=== PATIENT | female | born 1975 | race Caucasian/White ===

== ENCOUNTER → 2017-11-22 08:52 | Outpatient (CLI) | payer OTHER, SELFPAY ==
[2017-11-22 12:22] LABS: Absolute Lymphocyte Count 1.95 X10^3/ul (0.83-4.51); Absolute Neutrophil Count 6.1 X10^3/uL (2.0-7.7); Basophil# 0.02 X10^3/uL; Basophil% 0.2 % (0-1); Eosinophil# 0.18 X10^3/uL; Eosinophils% 2.1 % (0-5); Hematocrit 41.8 % (37-47); Hemoglobin 13.6 g/dl (12.0-15.0); Lymphocyte # 1.95 X10^3/ul (4.0); Lymphocyte % 22.3 % (19-41); Mean Corp Hgb Conc 32.5 g/gl (32-36); Mean Corpuscular Volume 89.1 fL (81-99); Mean Platelet Vol. 10.5 fl (6.2-12.0); Monocyte# 0.46 X10^3/uL; Monocyte% 5.3 % (0-10); Neutrophil # 6.14 X10^3/uL (2.7-7.7); Platelet Count 300 K/mm3 (150-450); Red Blood Count 4.69 M/mm3 (4.2-5.4); White Blood Count 8.8 K/mm3 (4.4-11.0)
[2017-11-22 12:30] LABS: POSITIVE COUNT NO; POSITIVE DIFFERENTIAL NO; POSITIVE MORPHOLOGY NO
[2017-11-22 12:44] LABS: AST(SGOT) 17 U/L (15-37); Alanine Aminotransfer ALT/SGPT 38 U/L (13-56); Albumin, Serum 3.6 g/dL (3.2-5.0); Alkaline Phosphatase 71 U/L (45-117); Anion Gap 9 (5-15); BUN 14 mg/dL (7-18); BUN/Creat Ratio 21.1 RATIO (10-20); Calcium,Total 8.7 mg/dL (8.5-10.1); Chloride 103 mmol/L (98-107); Cholesterol 216 mg/dL (200); Creatinine, Serum 0.66 mg/dL (0.55-1.02); EST Glomerular Filtration Rate 104 mL/min (>60); Est Glom Filt Rate - Afr Amer 125 mL/min (>60); Globulin 3.6 g/dL (2.2-4.2); Glucose 91 mg/dL (74-106); High Density Lipoprotein 59 mg/dL; Potassium 3.9 mmol/L (3.5-5.1); Protein, Total 7.2 g/dL (6.4-8.2); Sodium Level 138 mmol/L (136-145); Triglycerides 305 mg/dL; Very Low Density Lipoprotein 61 mg/dL (5-40)
== END ==
PROVIDERS: Family Provider Family Medicine; PCP Family Medicine; Visit Provider Family Medicine
DX: E78.5 Hyperlipidemia, unspecified (principal); R53.83 Other fatigue
CPT/HCPCS: 36415; 80053; 80061; 85025

== ENCOUNTER → 2019-02-19 09:09 | Outpatient (CLI) | payer BC, SELFPAY ==
[2019-02-19 10:14] LABS: Absolute Lymphocyte Count 1.46 X10^3/ul (0.83-4.51); Absolute Neutrophil Count 4.7 X10^3/uL (2.0-7.7); Basophil# 0.04 X10^3/uL; Basophil% 0.6 % (0-1); Eosinophil# 0.18 X10^3/uL; Eosinophils% 2.6 % (0-5); Hematocrit 42.3 % (37-47); Hemoglobin 13.8 g/dl (12.0-15.0); Lymphocyte # 1.46 X10^3/ul (4.0); Lymphocyte % 21.3 % (19-41); Mean Corp Hgb Conc 32.6 g/gl (32-36); Mean Corpuscular Hgb 28.3 pg (27.0-32.0); Mean Corpuscular Volume 86.7 fL (81-99); Mean Platelet Vol. 10.4 fl (6.2-12.0); Monocyte# 0.42 X10^3/uL; Monocyte% 6.1 % (0-10); Neutrophil # 4.72 X10^3/uL (2.7-7.7); Platelet Count 268 K/mm3 (150-450); RBC Distribution Width CV 12.6 % (11.6-14.6); RBC Distribution Width SD 39.1 fl (35.1-43.9); Red Blood Count 4.88 M/mm3 (4.2-5.4); White Blood Count 6.9 K/mm3 (4.4-11.0)
[2019-02-19 10:24] LABS: POSITIVE COUNT NO; POSITIVE DIFFERENTIAL NO; POSITIVE MORPHOLOGY NO
[2019-02-19 10:45] LABS: ALB/GLOB Ratio 0.9 RATIO (0.9-2.4); AST(SGOT) 18 U/L (15-37); Alanine Aminotransfer ALT/SGPT 29 U/L (13-56); Albumin, Serum 3.4 g/dL (3.2-5.0); Alkaline Phosphatase 73 U/L (45-117); Anion Gap 5 (5-15); BUN 10 mg/dL (7-18); BUN/Creat Ratio 15.2 RATIO (10-20); Calcium,Total 8.5 mg/dL (8.5-10.1); Chloride 106 mmol/L (98-107); Cholesterol 210 mg/dL (200); Creatinine, Serum 0.66 mg/dL (0.55-1.02); EST Glomerular Filtration Rate 104 mL/min (>60); Est Glom Filt Rate - Afr Amer 126 mL/min (>60); Free T3 2.7 pg/mL (2.18-3.98); Globulin 3.8 g/dL (2.2-4.2); Glucose 87 mg/dL (74-106); High Density Lipoprotein 59 mg/dL; Potassium 3.9 mmol/L (3.5-5.1); Protein, Total 7.2 g/dL (6.4-8.2); Sodium Level 140 mmol/L (136-145); Thyroid Stim Hormone (TSH) 1.18 uIU/mL (0.358-3.74); Triglycerides 214 mg/dL; Very Low Density Lipoprotein 43 mg/dL (5-40)
== END ==
PROVIDERS: Family Provider Family Medicine; PCP Family Medicine; Referring Provider Family Medicine; Visit Provider Family Medicine
DX: E78.5 Hyperlipidemia, unspecified (principal); R53.83 Other fatigue; Z51.81 Encounter for therapeutic drug level monitoring
CPT/HCPCS: 36415; 80053; 80061; 84439; 84443; 84481; 85025

== ENCOUNTER → 2019-03-21 10:39 | Outpatient (CLI) | payer BC, SELFPAY ==
--- NOTE | 2019-03-21 10:41 | BI_ITS ---
MAMMOGRAPHY - BILATERAL SCREENING REASON FOR EXAM: Female, 43 years old. Routine annual screening examination. PERTINENT HISTORY: Aunt with breast cancer. TECHNIQUE: Digital bilateral breast karyn (3D mammographic acquisition) in the CC and MLO projections. 2-D mediolateral oblique (MLO) and craniocaudad (CC) views of both breasts were obtained. CAD: Full Field Digital Mammography with Computer Added Detection was performed. COMPARISON: None. Baseline examination. FINDINGS: Breast Composition: There are scattered areas of fibroglandular density. There are no dominant masses or suspicious calcifications. No other significant abnormalities are identified. BI/SCREEN MAMM (CAD) W/KARYN BILAT IMPRESSION: Negative screening mammogram. Yearly followup mammogram recommended. (A) ASSESSMENT CATEGORY: BIRADS Category 1: Negative. A letter regarding these results will be sent to the patient by the facility within 30 days. Approximately 10% of breast cancers are not detected by mammography. A normal mammogram should not delay biopsy of a clinically suspicious abnormality. [id number] Electronically Signed: Zhou Castrejon, at 8:24 EDT , Service support ,
== END ==
PROVIDERS: Family Provider Family Medicine; PCP Family Medicine; Referring Provider Family Medicine; Visit Provider Family Medicine
DX: Z12.31 Encounter for screening mammogram for malignant neoplasm of breast (principal)
CPT/HCPCS: 77063; 77067

== ENCOUNTER → 2019-04-25 12:52 | Outpatient (CLI) | payer BC, SELFPAY ==
[2019-04-25 08:16] VITALS: BMI 31.9
[2019-05-01 09:37] LABS: HPV APTIMA, High Risk Negative (Negative)
== END ==
PROVIDERS: Family Provider Family Medicine; PCP Family Medicine; Referring Provider Nurse Practitioner Women's Health; Visit Provider Nurse Practitioner Women's Health
DX: Z12.4 Encounter for screening for malignant neoplasm of cervix (principal)
CPT/HCPCS: 87624; 88175; G0145

== ENCOUNTER → 2019-11-11 18:16 | Outpatient (CLI) | payer OTHER, SELFPAY ==
[2019-10-29 15:53] VITALS: BMI 31.9
[2019-11-11 08:34] LABS: hCG Titer Quant., Serum < 1 mIU/mL (1-3)
[2019-11-11 08:39] LABS: Estradiol 37.4 pg/mL; Follicle Stimulating Hormone 5.4 mIU/mL; Luteinizing Hormone 4.5 mIU/mL; Thyroid Stim Hormone (TSH) 2.37 uIU/mL (0.358-3.74)
[2019-11-11 09:08] LABS: Progesterone Level 0.57 ng/mL (See Comment)
--- NOTE | 2019-11-11 18:23 | US_ITS ---
STUDY: ULTRASOUND OF THE FEMALE PELVIS - COMPLETE REASON FOR EXAM: Female, 44 years old. History of polycystic ovaries. LMP: November 08, 2019. TECHNIQUE: Transabdominal and Transvaginal TECHNICAL QUALITY: Adequate. COMPARISON: None. FINDINGS: The uterus is retroverted and is in a midline position. The uterus measures 6.7 cm x 4.3 cm x 3.9 cm. Normal uterine cervix. The endometrium measures 11.5 mm in thickness, and is hyperechoic. There is no demonstrated endometrial mass. There is no demonstrated myometrial mass. I.U.D. - The patient does not have an I.U.D. The right ovary is visualized. The right ovary measures 2.9 cm x 2.9 cm x 2.2 cm. There is no right ovarian cyst or ovarian mass. There is no visualized right adnexal mass or complex lesion. There is normal arterial and normal venous vascularity. The left ovary is visualized. The left ovary measures 6.6 cm x 4.1 cm x 3.2 cm. There is a 4.1 cm x 4.8 cm x 2.5 cm cyst within it. Low-level echoes are seen along its dependent portion. Follow-up is recommended. There is no visualized left adnexal mass or complex lesion. There is normal arterial and normal venous vascularity. There is no fluid in the cul-de-sac. The pre void volume of the bladder was 790 ml. Polycystic ovary disease: No. US/Transvaginal Non- IMPRESSION: 4.1 cm x 4.8 cm x 2.5 cm cyst in the left ovary with the low-level echoes along its dependent portion. Follow-up is recommended. Electronically Signed: Zhou Castrejon, at 12:09 EST , Service support ,
--- NOTE | 2019-11-11 18:23 | US_ITS ---
STUDY: ULTRASOUND OF THE FEMALE PELVIS - COMPLETE REASON FOR EXAM: Female, 44 years old. History of polycystic ovaries. LMP: November 08, 2019. TECHNIQUE: Transabdominal and Transvaginal TECHNICAL QUALITY: Adequate. COMPARISON: None. FINDINGS: The uterus is retroverted and is in a midline position. The uterus measures 6.7 cm x 4.3 cm x 3.9 cm. Normal uterine cervix. The endometrium measures 11.5 mm in thickness, and is hyperechoic. There is no demonstrated endometrial mass. There is no demonstrated myometrial mass. I.U.D. - The patient does not have an I.U.D. The right ovary is visualized. The right ovary measures 2.9 cm x 2.9 cm x 2.2 cm. There is no right ovarian cyst or ovarian mass. There is no visualized right adnexal mass or complex lesion. There is normal arterial and normal venous vascularity. The left ovary is visualized. The left ovary measures 6.6 cm x 4.1 cm x 3.2 cm. There is a 4.1 cm x 4.8 cm x 2.5 cm cyst within it. Low-level echoes are seen along its dependent portion. Follow-up is recommended. There is no visualized left adnexal mass or complex lesion. There is normal arterial and normal venous vascularity. There is no fluid in the cul-de-sac. The pre void volume of the bladder was 790 ml. Polycystic ovary disease: No. US/Pelvic (Non ) IMPRESSION: 4.1 cm x 4.8 cm x 2.5 cm cyst in the left ovary with the low-level echoes along its dependent portion. Follow-up is recommended. Electronically Signed: Zhou Castrejon, at 12:09 EST , Service support ,
== END ==
PROVIDERS: PCP Family Medicine; Referring Provider Nurse Practitioner Women's Health; Visit Provider Nurse Practitioner Women's Health
DX: E28.2 Polycystic ovarian syndrome (principal); Z87.42 Personal history of other diseases of the female genital tract
CPT/HCPCS: 36415; 76830; 76856; 82670; 83001; 83002; 84144; 84443; 84702

== ENCOUNTER → 2020-02-06 16:39 | Outpatient (CLI) | payer OTHER, SELFPAY ==
[2020-02-06 13:09] VITALS: BMI 31.9
--- NOTE | 2020-02-06 16:40 | US_ITS ---
STUDY: ULTRASOUND OF THE FEMALE PELVIS - COMPLETE REASON FOR EXAM: Female, 44 years old. F/U LTO CYST LMP: TECHNIQUE: Transabdominal and transvaginal TECHNICAL QUALITY: Adequate. COMPARISON: November 11, 2019. FINDINGS: The uterus is retroverted and is in a midline position. The uterus measures 9 x 5 x 3.6 cm. Normal uterine cervix. The endometrium measures 9 mm in thickness, and is hyperechoic. There is no demonstrated endometrial mass. There is a fibroid measuring 1.3 x 2.6 x 0.5 cm I.U.D. - The patient does not have an I.U.D. The right ovary is visualized. The right ovary measures 3.2 x 2.7 x 2.2 cm. There is no right ovarian cyst or ovarian mass. There is no visualized right adnexal mass or complex lesion. There is normal arterial and normal venous vascularity. The left ovary is visualized. The left ovary measures 5 x 4.3 x 2.6 cm. There is a multi septated cyst measuring 3.9 x 2.2 x 1.9 cm. There is normal arterial and normal venous vascularity. There is mild fluid in the cul-de-sac. The pre void volume of the bladder was 270.86 ml. The cystic portion of the left ovarian lesion appears to be smaller than the prior study however there is increasing septation and internal debris. This may be due to intracystic hemorrhage. Possibility of neoplasm is not entirely excluded. Would recommend follow-up sonogram or possibly MRI for further assessment US/Pelvic (Non ) IMPRESSION: Normal female pelvis. Electronically Signed: Toro Cronin MD at 17:31 EDT , Service support ,
--- NOTE | 2020-02-06 16:40 | US_ITS ---
STUDY: ULTRASOUND OF THE FEMALE PELVIS - COMPLETE REASON FOR EXAM: Female, 44 years old. F/U LTO CYST LMP: TECHNIQUE: Transabdominal and transvaginal TECHNICAL QUALITY: Adequate. COMPARISON: November 11, 2019. FINDINGS: The uterus is retroverted and is in a midline position. The uterus measures 9 x 5 x 3.6 cm. Normal uterine cervix. The endometrium measures 9 mm in thickness, and is hyperechoic. There is no demonstrated endometrial mass. There is a fibroid measuring 1.3 x 2.6 x 0.5 cm I.U.D. - The patient does not have an I.U.D. The right ovary is visualized. The right ovary measures 3.2 x 2.7 x 2.2 cm. There is no right ovarian cyst or ovarian mass. There is no visualized right adnexal mass or complex lesion. There is normal arterial and normal venous vascularity. The left ovary is visualized. The left ovary measures 5 x 4.3 x 2.6 cm. There is a multi septated cyst measuring 3.9 x 2.2 x 1.9 cm. There is normal arterial and normal venous vascularity. There is mild fluid in the cul-de-sac. The pre void volume of the bladder was 270.86 ml. The cystic portion of the left ovarian lesion appears to be smaller than the prior study however there is increasing septation and internal debris. This may be due to intracystic hemorrhage. Possibility of neoplasm is not entirely excluded. Would recommend follow-up sonogram or possibly MRI for further assessment US/Transvaginal Non- IMPRESSION: Normal female pelvis. Electronically Signed: Toro Cronin MD at 17:31 EDT , Service support ,
== END ==
PROVIDERS: PCP Family Medicine; Visit Provider Obstetrics & Gynecology
DX: E28.2 Polycystic ovarian syndrome (principal); Z87.42 Personal history of other diseases of the female genital tract
CPT/HCPCS: 76830; 76856

== ENCOUNTER 2020-02-11 11:26 | Day surgery (SDC) | payer OTHER, SELFPAY ==
[2019-10-29 15:53] VITALS: BMI 31.9
[2020-02-06 13:09] VITALS: BMI 31.9
[2020-02-11] VITALS (9 sets, daily range): BP systolic 129–151; BP diastolic 70–92; PULSE 57–79; RESP 15–18; TEMP 35.9–36.6; O2SAT 95–100; BMI 30.8
--- NOTE | 2020-02-11 | CYST_PTH ---
PATIENT: ALEX PRYOR LOC: [facility] U#:[id number] AGE/SX: 44/F ROOM: RE02/11/[address]: Dr. Echo Pierre MD : 1975 BED: DIS: 02/11/2020 SPEC #: [id number] RECD: 02/11/20 14:51 STATUS: EPIFANIO REDae #: [id number] ROMÁN: 02/11/20 00:[address]: Echo Pierre DEPT: SURGICAL PATHOLOGY RECD BY: Nurys Villeda ENTERED: 02/12/20 09:04 SP TYPE: Cyst OTHR DR: Dr. Mónica Davis DO Tissues: CYST Procedures: Surgery Specimen Level IV HEADER OPERATION: Diagnostic laparoscopy, left ovarian cystectomy PRE-OP DIAGNOSIS: Cyst of left ovary N83.202 TISSUE SUBMITTED: Left ovarian cyst MICROSCOPIC DIAGNOSIS Left ovarian cyst, excision: Fragments of corpus luteal cyst and blood clot. AM:johnnie 02/13/20 COMMENT Case has been reviewed in consultation with Dr. Mckeon who concurs with the above diagnosis. IDC:SJ MICROSCOPIC DESCRIPTION Slides are reviewed. GROSS DESCRIPTION Received in fixative is one container labeled with the patient's name and designated left ovarian cyst. The specimen consists of multiple irregular fragments of light to dark cabello soft tissue that in aggregate measure 2.5 x 2.2 x 0.2 cm. The specimen is totally submitted in one cassette. / AM:johnnie 02/12/20 TC:5 CPT: 56223
--- NOTE | 2020-02-11 10:34 | PCM.HPOB.BLA ---
- Problem List (1) History of infertility Status: Acute Comment: 2 failed IUI (2) Ovarian cyst Status: Acute Comment: per infertility specialist, recommend surgical removal prior to IVF. original US 11/11/19 plan repeat now and surgery 02/11/20 (3) PCOS (polycystic ovarian syndrome) Status: Acute History and Physical Date of Admission: 02/11/20 Intake Vital Signs 10/29/19 Height 5 ft 6 in 10/29/19 Weight: 190 lb 10/29/19 BMI 30.7 10/29/19 BP 138/80 H Intake Visit Reasons: fertility consult Consulting Services Project Manager Required: No Accompanied by: mom Is patient in pain?: No Allergies No Known Allergies Allergy (Verified 10/29/19 14:51) Medications meloxicam 15 mg tablet 15 mg PO DAILY 04/25/19 [History Confirmed 10/29/19] metformin 500 mg/5 mL oral solution 500 mg PO BID 04/25/19 [History Confirmed 10/29/19] omega-3 360 om-beq-dbx-fish oil 1,200 mg capsule,delayed release 2 cap PO BID 04/25/19 [History Confirmed 10/29/19] loratadine 10 mg tablet 10 mg PO DAILY 10/29/19 [History Confirmed 10/29/19] Is last menstrual period known: Yes Last Menstral Period: 10/13/19 Post menopausal: No Patient : No : No PFSH Medical History PCOS (polycystic ovarian syndrome) (Acute) Family History Father Diabetes Mother Cancer uterine Aunt Breast cancer Social History (Updated 10/29/19 @ 15:53 by Lesia Lopez NP-C) number of children: 0 current occupational status: employed current occupation: [employer][1] Smoking Status: Never smoker alcohol intake: never substance use type: does not use diet: low carbohydrate caffeine: Yes (4) Type: coffee, tea seatbelt use: always do you feel safe at home: Yes additional social history: Danielito ESTEVEZ fertility consult: Details: ALEX PRYOR is a 44 year old who presents for infertility discussion. She was seen at [facility] in [place] on Oct 18. Had normal HSG but US indicates simple 5cm left ovarian cyst. She and her are planning IVF with donor egg. Was recommended to have repeat US day 3 of next cycle and if persists consider either OCP for ovarian suppression or Laparoscopy with hysteroscopy and cyst aspiration. She is wanting to confirm this can be done here with Dr. Pierre Infertility labs were done at [facility]-I reviewed results with patient, all normal and scan to chart. Female Reproductive History Last Menstral Period: 10/13/19 Pregancy History 0 Elective abortions Hx Para Spontaneous abortions Hx # Term Pregnancies Ectopic pregnancies Hx # Pregnancies Multiple births # of living children ROS: General: negative Superintendent Logging: see hpi GI: otherwise negative unless documented in hpi all other systems reviewed and negative PE: VSSAF General: alert oriented comfortable HEENT: no thyromegaly, lymphadenopathy CV: RRR Resp: nl inspiratory effort Abdn: soft NTTP ND Ext: noedema Assessment & Plan Problems 1. Cyst of left ovary N83.202 2. History of infertility Z87.42 2 failed IUI Plan Discussed risk of enlarging ovarian cyst, rupture, pain or torsion if proceeds with ovarian stimulating medication and reasoning for removal/control prior to starting infertility therapies. She is to call [facility] on day 3 of cycle for instructions for US and next labs. She will then contact me so those can be ordered here in [place]. If cyst persists or has enlarged further, she would like to proceed with surgical intervention with Dr. Pierre 20 min FTF counseling with patient. After discussing the patient's diagnosis and treatment plan options, patient wishes to proceed with surgical management. I have discussed with the patient the risks, benefits, and alternatives of the procedure which include but are not limited to risks of anesthesia, bleeding, infection, possible damage to bowel, bladder, or surrounding vasculature which could lead to additional surgery to evaluate any complications. Patient agrees to procedure and wishes to proceed. UPDATE- I have seen the patient and performed any clinically relevant updates to the history and physical exam. Echo Pierre MD Coding Level of Care Code Off vis,est,level 3 Diagnoses Cyst of left ovary N83.202 ??Laterality: left History of infertility Z87.42
[2020-02-11 11:57] LABS: Hematocrit 41.9 % (37-47); Hemoglobin 13.9 g/dL (12.0-15.0); Mean Corp Hgb Conc 33.2 g/dL (32-36); Mean Corpuscular Hgb 30.5 pg (27.0-32.0); Mean Corpuscular Volume 92.1 fL (81-99); Mean Platelet Vol. 10.2 fl (6.2-12.0); Platelet Count 291 K/mm3 (150-450); RBC Distribution Width SD 42.6 fl (35.1-43.9); Red Blood Count 4.55 M/mm3 (4.2-5.4); White Blood Count 6.5 K/mm3 (4.4-11.0)
[2020-02-11] MEDS: Lactated Ringers 1,000 ML 125 ML IV (12:05)
[2020-02-11 12:35] LABS: Internal QC Validated? YES +Cl - CLEAR BKGD; Pregnancy, Urine Negative Negative
[2020-02-11 12:45] LABS: Bedside Glucose 70 mg/dL (70-110)
--- NOTE | 2020-02-11 12:46 | PCM.OPRPT ---
Problem List (1) History of infertility Status: Acute Comment: 2 failed IUI (2) Ovarian cyst Status: Acute Comment: per infertility specialist, recommend surgical removal prior to IVF. original US 11/11/19 plan repeat now and surgery 02/11/20 (3) PCOS (polycystic ovarian syndrome) Status: Acute Report of Operation Date of Procedure: 02/11/20 Pre-Operative Diagnosis: complex ovarian cyst, infertility Post-Operative Diagnosis: endometriosis, polycystic ovaries Surgery/Procedure Performed:: diagnostic laparoscopy ovarian cystectomy, ablation of endometriosis Description of Surgical Findings:: Multiple endometriosis lesions in the cul-de-sac and a Masters window in the left uterosacral ligament. Polycystic ovaries bilaterally with a mostly cystic appearance more so on the left. Normal fallopian tubes normal uterus. Small amount of sigmoid colon to left pelvic sidewall adhesions. manager quality compliance: Shalonda Lopez Type of Anesthesia:: General Special Medications: alli Specimen's removed: ovarian cyst Drains: none Estimated Blood Loss (mL): 25 Fluids Replaced: crystalloid Description of Procedure: Patient was taken in the operating room and was placed under general anesthesia was prepped and draped in normal sterile fashion in the dorsal lithotomy position. Bladder was drained of clear urine and SCDs were on preoperatively. Uterus was sounded and a uterine manipulator was placed after dilating. Attention was then paid to the abdominal portion of the procedure and the umbilicus was elevated with towel clamps and injected with Marcaine and after a 5 mm incision was made and the Veress needle was entered into the abdomen confirmed to be intra-abdominal with a low opening pressure of less than 5 mmHg. Abdomen was insufflated with CO2 gas and a 5 mm optical trocar was placed under direct visualization. A left lower quadrant 5 mm port and a RLQ 5 mm port were placed under direct visualization. Uterus was well visualized and the left ovary was noted to be enlarged with a cyst. Using the monopolar scissors an incision was made across the left ovary and clear serous fluid was seen. The cyst was then dissected away from the normal ovary wall and cystectomy was performed without complication. The area was aggressively suctioned and irrigated. Multiple other holes were drilled into the ovary to release the multiple amount of cyst that gave the ovary is polycystic appearance. Also repeated on the right ovary. Alli was applied to the base of the ovary where the area was bleeding. The right ovary was also inspected and noted to be multicystic. The sigmoid colon to left pelvic sidewall adhesions were taken down sharply and with the monopolar scissors. Excellent hemostasis was noted after Alli was applied to all the raw areas and the ovaries. Liver and upper abdomen were visualized notably within normal limits and no other gross abnormalities were seen in the abdomen. All instruments removed from the abdomen and uterine manipulator removed. After gas was desufflated. Port sites were closed with 3-0 Monocryl Steri's and op sites were applied. All instruments removed from the vagina and patient was awoken and taken recovery in stable condition. Grafts/Implants Used: none - Complications none Multi Select Codes - Urinary/Genital Urinary/Genital CPT Codes: 75791 Laproscopic BS/O - ovarian cystectomy, 43506 Laproscopic ablation endometriosis
--- NOTE | 2020-02-11 12:51 | DCINST_ITS ---
Discharge Diet: No Restrictions - Increase fluid intake for the next 48 hours. Discharge Activity: Return to Normal Activity, May Drive - when you are no longer taking narcotic pain medications., May Shower, May Take a Tub Bath - in 7 days Additional Activity Instructions:: Ambulate often the next week after surgery. Nothing in the vagina for 5 days. Call your doctor if your incision/area has: Continuous Slow Oozing, Sudden Increased Bleeding, Increased Pain/ Swelling, Increased Redness, Foul Smelling Discharge Call your doctor if you observe: Fever of 101 or Higher Allergies/Adverse Reactions: Allergies No Known Allergies Allergy (Verified 02/11/20 11:55) Medications to take at Discharge meloxicam 15 mg tablet 15 mg PO DAILY 04/25/19 omega-3 360 ah-dfs-drz-fish oil 1,200 mg capsule,delayed release 3 cap PO DAILY 04/25/19 Fexofenadine HCl [Fiordaliza Allergy] 180 mg PO DAILY 02/10/20 Metformin HCl 1,000 mg PO DAILY 02/10/20 Multivitamin with Minerals [Multiple Vitamin] 1 ea PO DAILY 02/10/20 Naproxen [Naprosyn] 250 - 500 mg PO Q8H PRN PRN #30 tab 02/11/20 Naproxen [Naprosyn] 250 - 500 mg PO Q8H PRN PRN #30 tab 02/11/20 Oxycodone HCl/Acetaminophen [Percocet 5-325] 1 - 2 tablet PO Q6H PRN PRN 7 Days #15 tablet 02/11/20 The following prescriptions were given: Naproxen [Naprosyn] 250 - 500 mg PO Q8H PRN PRN #30 tab PRN Reason: MILD PAIN Naproxen [Naprosyn] 250 - 500 mg PO Q8H PRN PRN #30 tab PRN Reason: MILD PAIN Transmission Status: Pending to [facility] Oxycodone HCl/Acetaminophen [Percocet 5-325] 1 - 2 tablet PO Q6H PRN PRN 7 Days #15 tablet PRN Reason: Pain Transmission Status: Sent to [facility] Orders to be completed after discharge: Type & Screen Time Frame: 02/11/20, Facility: [facility], Location: Laboratory Primary Care Physician: Mónica Davis DO [Primary Care Provider] - Test Results: Test results from this visit will be discussed in further detail at your follow- up appointment, if applicable. Please Follow Up With: Echo Pierre MD - [phone]
[2020-02-11] MEDS: Lubricating Jelly 60 GM Tube 30 GM TOPICAL (13:12)
[2020-02-11] MEDS: Bupivacaine 0.25% 30 ML Vial (13:55)
== END 2020-02-11 16:28 | disposition home or self-care (01) ==
LOC: SDC 11:27 → AC 11:28
PROVIDERS: Anesthesiology; PCP Family Medicine; Referring Provider Obstetrics & Gynecology; Visit Provider Obstetrics & Gynecology
PROC: (CPT 49320; principal; 2020-02-11 12:50)
DX: E28.2 Polycystic ovarian syndrome (principal); N83.12 Corpus luteum cyst of left ovary; Z79.84 Long term (current) use of oral hypoglycemic drugs; Z79.1 Long term (current) use of non-steroidal anti-inflammatories (NSAID)
CPT/HCPCS: 58662; 36415; 81025; 82962; 85027; 86850; 86900; 86901; 88304; 88305; J7120

== ENCOUNTER → 2020-03-19 10:54 | Outpatient (CLI) | payer OTHER, SELFPAY ==
[2020-02-28 09:42] VITALS: BMI 30.8
[2020-03-19 11:21] LABS: Hematocrit 41.6 % (37-47); Hemoglobin 13.6 g/dL (12.0-15.0); Mean Corp Hgb Conc 32.7 g/dL (32-36); Mean Corpuscular Hgb 29.4 pg (27.0-32.0); Mean Corpuscular Volume 89.8 fL (81-99); Platelet Count 297 K/mm3 (150-450); RBC Distribution Width CV 12.5 % (11.6-14.6); RBC Distribution Width SD 41.1 fl (35.1-43.9); Red Blood Count 4.63 M/mm3 (4.2-5.4); White Blood Count 7.5 K/mm3 (4.4-11.0)
[2020-03-19 11:44] LABS: ALB/GLOB Ratio 0.9 RATIO (0.9-2.4); AST(SGOT) 18 U/L (15-37); Alanine Aminotransfer ALT/SGPT 37 U/L (13-56); Albumin, Serum 3.6 g/dL (3.2-5.0); Alkaline Phosphatase 71 U/L (45-117); Anion Gap 7 (5-15); BUN 9 mg/dL (7-18); BUN/Creat Ratio 12.9 RATIO (10-20); Calcium,Total 9.1 mg/dL (8.5-10.1); Chloride 106 mmol/L (98-107); EST Glomerular Filtration Rate 97 mL/min (>60); Est Glom Filt Rate - Afr Amer 117 mL/min (>60); Glucose 94 mg/dL (74-106); Potassium 3.7 mmol/L (3.5-5.1); Protein, Total 7.6 g/dL (6.4-8.2); Sodium Level 140 mmol/L (136-145)
[2020-03-19 12:29] LABS: HIV - WCH Non-Reactive (Nonreactive); Hepatitis B Surface Antigen Non-Reactive (Nonreactive); Hepatitis C Antibody Non-Reactive (Nonreactive); Rubella IgG 28.8 IU/mL
[2020-03-25 21:56] LABS: Rapid Plasmin Reagin (RPR) NONREACTIVE (NONREACTIVE)
== END ==
PROVIDERS: PCP Family Medicine; Referring Provider Obstetrics & Gynecology; Visit Provider Obstetrics & Gynecology
DX: Z87.42 Personal history of other diseases of the female genital tract (principal)
CPT/HCPCS: 80053; 85027; 86592; 86703; 86762; 86803; 86850; 86900; 86901; 87340

== ENCOUNTER → 2020-04-02 08:18 | Outpatient (CLI) | payer OTHER, SELFPAY ==
[2020-03-31 08:22] VITALS: BMI 30.7
--- NOTE | 2020-04-02 08:20 | US_ITS ---
STUDY: SUPERFICIAL ULTRASOUND - RIGHT UPPER BACK REASON FOR EXAM: Female, 44 years old. LUMP- RIGHT BACK TECHNIQUE: A superficial ultrasound was performed with real-time and static wright-scale imaging. COMPARISON: None. FINDINGS: Sonographic evaluation of the palpable abnormality in the right upper back shows 2 separate isoechoic to muscle nodules. The larger measures 4.2 x 4.0 x 2.2 cm, smaller 1.6 x 2.2 x 0.7 cm. There are homogeneity suggests they are likely lipomas. There is no suspicious vascularity or other evidence of acute inflammation. No suspicious subcutaneous fluid collections. US/Ext Non Vasc Limited/Soft Tiss IMPRESSION: Likely subcutaneous lipomas, no suspicious sonographic findings Electronically Signed: Maikel Odom MD at 8:57 EDT , Service support ,
== END ==
PROVIDERS: PCP Family Medicine; Referring Provider Physician Assistant; Visit Provider Physician Assistant
DX: R22.9 Localized swelling, mass and lump, unspecified (principal)
CPT/HCPCS: 76882

== ENCOUNTER → 2020-04-03 08:23 | Outpatient (CLI) | payer OTHER, SELFPAY ==
[2020-04-02 13:00] VITALS: BMI 30.8
[2020-04-03 08:58] LABS: hCG Titer Quant., Serum < 1 mIU/mL (1-3)
[2020-04-03 09:02] LABS: Estradiol 42.7 pg/mL; Follicle Stimulating Hormone 3.5 mIU/mL; Luteinizing Hormone 3.8 mIU/mL; Thyroid Stim Hormone (TSH) 1.56 uIU/mL (0.358-3.74)
[2020-04-03 09:21] LABS: Progesterone Level 0.44 ng/mL (See Comment)
--- NOTE | 2020-04-03 15:53 | US_ITS ---
HISTORY: Infertility. Left ovarian cyst removed 02/11/2020. Endometriosis. Tissue removal. Follow-up. Endovaginal imaging only. 61 images. 2 cine clips. Most recent comparison study is from February 06, 2020 At that time a hematoma versus endometrioma was present adjacent to the left ovary measuring 3.9 x 1.9 x 2.2 cm on the previous study. There are 2 studies one is a transabdominal and one is in endovaginal. The labeled this study is for the transabdominal not be endovaginal. The images provided, however, or for the endovaginal. There is a separate study called pelvic non-OB from today that is transabdominal. Findings: The cine clip demonstrates a hematoma associated with the left ovary. It is feasible this is an endometrioma. I believe a hematoma is more likely. The bladder is not completely decompressed. The uterus measures 8 x 4.2 x 5.7 cm. Myometrium is homogeneous. Endometrium is homogeneous. Endometrial stripes measure 11 mm. Color Doppler imaging demonstrates flow within the myometrium as well as at the edge of the endometrium. The cervix is closed. The right ovary measures 2.6 x 2.9 x 2.8 cm. Color Doppler imaging demonstrates flow to right ovarian parenchyma. The left ovary measures 6.1 x 4.8 x 5.3 cm. With in the left ovary there is the hematoma structure. It measures 5.3 x 4.6 x 4.3 cm. Color Doppler and pulse-wave Doppler imaging demonstrate arterial flow within the left ovarian parenchyma compressed at the margins of the hematoma. US/Pelvic (Non ) IMPRESSION: Increasing size of left ovarian cystic structure with septations that appears to be a hematoma. Increasing size suggests this may be a growing endometrioma rather than a simple hematoma. No ovarian torsion. at 0515 Reported and signed by: Russ Traylor MD Electronically Signed: Russ Traylor MD at 5:14 EDT Tel , Service support ,
--- NOTE | 2020-04-03 15:53 | US_ITS ---
HISTORY: Infertility. Left ovarian cyst removed 02/11/2020. Endometriosis. Tissue removal. Follow-up. Endovaginal imaging only. 61 images. 2 cine clips. Most recent comparison study is from February 06, 2020 At that time a hematoma versus endometrioma was present adjacent to the left ovary measuring 3.9 x 1.9 x 2.2 cm on the previous study. There are 2 studies one is a transabdominal and one is in endovaginal. The labeled this study is for the transabdominal not be endovaginal. The images provided, however, or for the endovaginal. There is a separate study called pelvic non-OB from today that is transabdominal. Findings: The cine clip demonstrates a hematoma associated with the left ovary. It is feasible this is an endometrioma. I believe a hematoma is more likely. The bladder is not completely decompressed. The uterus measures 8 x 4.2 x 5.7 cm. Myometrium is homogeneous. Endometrium is homogeneous. Endometrial stripes measure 11 mm. Color Doppler imaging demonstrates flow within the myometrium as well as at the edge of the endometrium. The cervix is closed. The right ovary measures 2.6 x 2.9 x 2.8 cm. Color Doppler imaging demonstrates flow to right ovarian parenchyma. The left ovary measures 6.1 x 4.8 x 5.3 cm. With in the left ovary there is the hematoma structure. It measures 5.3 x 4.6 x 4.3 cm. Color Doppler and pulse-wave Doppler imaging demonstrate arterial flow within the left ovarian parenchyma compressed at the margins of the hematoma. US/Transvaginal Non- IMPRESSION: Increasing size of left ovarian cystic structure with septations that appears to be a hematoma. Increasing size suggests this may be a growing endometrioma rather than a simple hematoma. No ovarian torsion. at 0515 Reported and signed by: Russ Traylor MD Electronically Signed: Russ Traylor MD at 5:14 EDT Tel , Service support ,
== END ==
PROVIDERS: PCP Family Medicine; Referring Provider Obstetrics & Gynecology; Visit Provider Obstetrics & Gynecology
DX: Z87.42 Personal history of other diseases of the female genital tract (principal)
CPT/HCPCS: 36415; 76830; 76856; 82670; 83001; 83002; 84144; 84443; 84702

== ENCOUNTER → 2020-04-07 16:01 | Outpatient (CLI) | payer OTHER, SELFPAY ==
[2020-04-02 13:00] VITALS: BMI 30.8
--- NOTE | 2020-04-07 16:02 | US_ITS ---
STUDY: ULTRASOUND OF THE FEMALE PELVIS - COMPLETE REASON FOR EXAM: Female, 44 years old. Infertility TECHNIQUE: Transabdominal and Transvaginal TECHNICAL QUALITY: Adequate. COMPARISON: 04/03/2020 FINDINGS: The uterus is anteverted and is in a midline position. The uterus measures 8.2 x 5.6 x 3.5 cm. Normal uterine cervix. The endometrium measures 7 mm in thickness, and is hyperechoic. There is no demonstrated endometrial mass. There is a 7 mm fibroid in the body of the uterus. The right ovary is visualized. The right ovary measures 3.9 x 2.6 x 2.5 cm. There is a physiologic follicle in the right ovary. There is no right ovarian cyst or ovarian mass. There is no visualized right adnexal mass or complex lesion. There is normal arterial and normal venous vascularity. The left ovary is visualized. The left ovary measures 6.0 x 5.0 x 3.4 cm. There is a 5.0 x 4.0 x 2.9 cm complex lesion in the left ovary which likely represents a hemorrhagic cyst. This is decreased in size when compared with the prior exam (previously 5.3 x 4.6 x 4.3 cm). There is no visualized left adnexal mass or complex lesion. There is normal arterial and normal venous vascularity. There is a small amount of free fluid. US/Transvaginal Non- IMPRESSION: Subcentimeter fibroid in the uterus. Otherwise, normal sonographic appearance of the uterus and endometrium. Normal sonographic appearance of the right ovary. 5.0 x 4.0 x 2.9 cm complex cyst in the left ovary which is decreased in size when compared with the prior exam. This is likely hemorrhagic in nature. Small amount of free fluid. Electronically Signed: Yury Lopes, at 17:03 EDT Tel , Service support ,
--- NOTE | 2020-04-07 16:02 | US_ITS ---
STUDY: ULTRASOUND OF THE FEMALE PELVIS - COMPLETE REASON FOR EXAM: Female, 44 years old. Infertility TECHNIQUE: Transabdominal and Transvaginal TECHNICAL QUALITY: Adequate. COMPARISON: 04/03/2020 FINDINGS: The uterus is anteverted and is in a midline position. The uterus measures 8.2 x 5.6 x 3.5 cm. Normal uterine cervix. The endometrium measures 7 mm in thickness, and is hyperechoic. There is no demonstrated endometrial mass. There is a 7 mm fibroid in the body of the uterus. The right ovary is visualized. The right ovary measures 3.9 x 2.6 x 2.5 cm. There is a physiologic follicle in the right ovary. There is no right ovarian cyst or ovarian mass. There is no visualized right adnexal mass or complex lesion. There is normal arterial and normal venous vascularity. The left ovary is visualized. The left ovary measures 6.0 x 5.0 x 3.4 cm. There is a 5.0 x 4.0 x 2.9 cm complex lesion in the left ovary which likely represents a hemorrhagic cyst. This is decreased in size when compared with the prior exam (previously 5.3 x 4.6 x 4.3 cm). There is no visualized left adnexal mass or complex lesion. There is normal arterial and normal venous vascularity. There is a small amount of free fluid. US/Pelvic (Non ) IMPRESSION: Subcentimeter fibroid in the uterus. Otherwise, normal sonographic appearance of the uterus and endometrium. Normal sonographic appearance of the right ovary. 5.0 x 4.0 x 2.9 cm complex cyst in the left ovary which is decreased in size when compared with the prior exam. This is likely hemorrhagic in nature. Small amount of free fluid. Electronically Signed: Yury Lopes, at 17:03 EDT Tel , Service support ,
== END ==
PROVIDERS: PCP Family Medicine; Referring Provider Obstetrics & Gynecology; Visit Provider Obstetrics & Gynecology
DX: E28.2 Polycystic ovarian syndrome (principal); Z87.42 Personal history of other diseases of the female genital tract
CPT/HCPCS: 76830; 76856

== ENCOUNTER → 2020-04-14 08:17 | Outpatient (CLI) | payer OTHER, SELFPAY ==
[2020-04-02 13:00] VITALS: BMI 30.8
[2020-04-14 08:56] LABS: Estradiol 341.3 pg/mL; Luteinizing Hormone 9.3 mIU/mL
[2020-04-14 09:25] LABS: Progesterone Level < 0.21 ng/mL (See Comment)
--- NOTE | 2020-04-14 15:31 | US_ITS ---
STUDY: ULTRASOUND OF THE FEMALE PELVIS - COMPLETE REASON FOR EXAM: Female, 44 years old. Infertility. LMP: April 02, 2020. TECHNIQUE: Transabdominal and Transvaginal TECHNICAL QUALITY: Adequate. COMPARISON: April 07, 2020. FINDINGS: The uterus is retroverted and is tilted to the right side of the pelvis. The uterus measures 8.2 x 5.0 x 5.0 cm. Normal uterine cervix. The endometrium measures 17 mm in thickness, and is heterogeneous (striated). Some 4 mm cyst within the endometrium. There is no demonstrated endometrial mass. There is a 0.9 x 0.8 x 0.6 cm hypoechoic fibroid in the posterior fundal myometrium. I.U.D. - The patient does not have an I.U.D. The right ovary is visualized. The right ovary measures 3.2 x 2.1 x 1.8 cm. There is no right ovarian cyst or ovarian mass. There is no visualized right adnexal mass or complex lesion. There is normal arterial and normal venous vascularity. The left ovary is visualized. The left ovary measures 3.6 x 3.7 x 2.4 cm. There are multiple follicles of the left ovary. There is a hypoechoic 2.2 x 1.7 x 1.2 cm dominant cyst.. There is no visualized left adnexal mass or complex lesion. There is normal arterial and normal venous vascularity. There is minimal fluid in the cul-de-sac. The pre void volume of the bladder was 821 ml. The urinary bladder appears grossly normal. Polycystic ovary disease: No. US/Transvaginal Non- IMPRESSION: 1. Prominent heterogenous endometrium with small endometrial cyst. 2. Posterior fundal fibroid. 3. Normal bilateral ovaries. 4. Mild free fluid, thought to be physiologic. Electronically Signed: Boby Rodriguez DO at 17:01 EDT Tel [phone], Service support ,
--- NOTE | 2020-04-14 15:31 | US_ITS ---
STUDY: ULTRASOUND OF THE FEMALE PELVIS - COMPLETE REASON FOR EXAM: Female, 44 years old. Infertility. LMP: April 02, 2020. TECHNIQUE: Transabdominal and Transvaginal TECHNICAL QUALITY: Adequate. COMPARISON: April 07, 2020. FINDINGS: The uterus is retroverted and is tilted to the right side of the pelvis. The uterus measures 8.2 x 5.0 x 5.0 cm. Normal uterine cervix. The endometrium measures 17 mm in thickness, and is heterogeneous (striated). Some 4 mm cyst within the endometrium. There is no demonstrated endometrial mass. There is a 0.9 x 0.8 x 0.6 cm hypoechoic fibroid in the posterior fundal myometrium. I.U.D. - The patient does not have an I.U.D. The right ovary is visualized. The right ovary measures 3.2 x 2.1 x 1.8 cm. There is no right ovarian cyst or ovarian mass. There is no visualized right adnexal mass or complex lesion. There is normal arterial and normal venous vascularity. The left ovary is visualized. The left ovary measures 3.6 x 3.7 x 2.4 cm. There are multiple follicles of the left ovary. There is a hypoechoic 2.2 x 1.7 x 1.2 cm dominant cyst.. There is no visualized left adnexal mass or complex lesion. There is normal arterial and normal venous vascularity. There is minimal fluid in the cul-de-sac. The pre void volume of the bladder was 821 ml. The urinary bladder appears grossly normal. Polycystic ovary disease: No. US/Pelvic (Non ) IMPRESSION: 1. Prominent heterogenous endometrium with small endometrial cyst. 2. Posterior fundal fibroid. 3. Normal bilateral ovaries. 4. Mild free fluid, thought to be physiologic. Electronically Signed: Boby Rodriguez DO at 17:01 EDT Tel [phone], Service support ,
== END ==
PROVIDERS: PCP Family Medicine; Referring Provider Obstetrics & Gynecology; Visit Provider Obstetrics & Gynecology
DX: E28.2 Polycystic ovarian syndrome (principal); Z87.42 Personal history of other diseases of the female genital tract
CPT/HCPCS: 36415; 76830; 76856; 82670; 83002; 84144

== ENCOUNTER → 2020-04-27 08:07 | Outpatient (CLI) | payer OTHER, SELFPAY ==
[2020-04-02 13:00] VITALS: BMI 30.8
[2020-04-27 09:19] LABS: hCG Titer Quant., Serum < 1 mIU/mL (1-3)
[2020-04-27 09:22] LABS: Progesterone Level 23.31 ng/mL (See Comment)
== END ==
PROVIDERS: Nurse Practitioner Women's Health; PCP Family Medicine; Referring Provider Obstetrics & Gynecology; Visit Provider Obstetrics & Gynecology
DX: Z87.42 Personal history of other diseases of the female genital tract (principal)
CPT/HCPCS: 36415; 82670; 84144; 84702

== ENCOUNTER → 2020-05-04 07:48 | Outpatient (CLI) | payer OTHER, SELFPAY ==
[2020-04-02 13:00] VITALS: BMI 30.8
[2020-05-04 09:05] LABS: Progesterone Level 27.08 ng/mL (See Comment)
[2020-05-04 09:07] LABS: hCG Titer Quant., Serum < 1 mIU/mL (1-3)
== END ==
PROVIDERS: Obstetrics & Gynecology; PCP Family Medicine; Referring Provider Nurse Practitioner Women's Health; Visit Provider Nurse Practitioner Women's Health
DX: Z87.42 Personal history of other diseases of the female genital tract (principal)
CPT/HCPCS: 36415; 84144; 84702

== ENCOUNTER 2020-05-15 09:17 | Day surgery (SDC) | payer OTHER, SELFPAY ==
--- NOTE | 2020-05-07 04:12 | HP_ITS ---
Intake Vital Signs 05/07/20 Height 5 ft 6 in 05/07/20 Weight: 190 lb 4 oz 05/07/20 BMI 30.7 05/07/20 BP 115/75 05/07/20 Blood Pressure Location Rt brachial 05/07/20 Position Sitting 05/07/20 Respiration 18 05/07/20 Pulse 74 05/07/20 Pulse Source Monitor 05/07/20 Temp 98.0 F 05/07/20 Temp Source Temporal 05/07/20 Pulse Oximetry (%) 98 05/07/20 Oxygen Delivery Method room air 05/07/20 BMI 30.8 Intake Visit Reasons: F/U Lipoma Back to discuss options Chief Complaint: f/u lipoma back to discuss surgery Corporate Director Talent Assessment Required: No Accompanied by: Mother Is patient in pain?: No Allergies oxycodone Allergy (Mild, Verified 05/07/20 15:13) rash Medications meloxicam 15 mg tablet 15 mg PO DAILY 04/25/19 [History Confirmed 05/07/20] omega-3 360 ph-kgd-lqx-fish oil 1,200 mg capsule,delayed release 3 cap PO DAILY 04/25/19 [History Confirmed 05/07/20] Metformin HCl 1,000 mg PO DAILY 02/10/20 [History Confirmed 05/07/20] Multivitamin with Minerals [Multiple Vitamin] 1 ea PO DAILY 02/10/20 [History Confirmed 05/07/20] Naproxen [Naprosyn] 250 - 500 mg PO Q8H PRN PRN #30 tab 02/11/20 [Rx Confirmed 05/07/20] PFSH Medical History Endometriosis determined by laparoscopy (Acute ~02/11/20) Lipoma of back (Acute) Infertility (Acute) PCOS (polycystic ovarian syndrome) (Acute) Surgical History H/O ovarian cystectomy (Acute ~02/11/20) H/O laparoscopy (Acute ~02/11/20) Family History Father Diabetes Mother Cancer uterine Aunt Breast cancer Grandmother Asthma Social History (Updated 05/07/20 @ 16:[address] Kamlesh Lang MD) number of children: 0 current occupational status: employed current occupation: [employer] Smoking Status: Never smoker alcohol intake: never substance use type: does not use diet: low carbohydrate caffeine: Yes (4) Type: coffee, tea seatbelt use: always do you feel safe at home: Yes additional social history: [employer] HPI HPI Surgical H&P: Yes HPI: ALEX PRYOR, is a 44 F who presents to the office today for a lump in her right lateral back area very close to her axillary area. She has had this mass for more than 15 years it is gradually getting larger started to become slightly more uncomfortable when she is lying down. Originally was seen by her primary care doctor many years ago who felt that it was just a lipomatous mass. Currently the patient is being evaluated for IVF. She however is started to develop more uncomfortable symptoms with this lump in her right axillary area and would like to have this removed ROGELIO. ROS General General: Yes weight change; no appetite, fatigue, colon cancer, breast cancer or weakness HEENT HEENT: No difficulty swallowing, eye injury, eye surgery, swollen glands or hoarseness Endo Endocrine: No thyroid disease, diabetes mellitus, thyroid cancer, Hair loss, heat intolerance or cold intolerance Musc Musculoskeletal: Yes back problems and arthritis; no rheumatoid arthritis, gout or joint pain Cardio Cardiovascular: No murmur, pacemaker, heart disease, atrial fibrillation, high blood pressure, heart attack, heart stent, palpitations, shortness of breat with exertion or chest pain Psych Psychiatric: No depression, anxiety or hearing voices Resp Respiratory: No shortness of breath, No sleep apnea, No cough, No COPD, No asthma, No emphysema, No wheezing Gastro Gastrointestinal: No abdominal pain, No nausea or vomiting, No diarrhea, No constipation, No blood in stool, No acid reflux, No hemorrhoids, No ulcers, No gallbladder problem, No black,tarry stools Luis Hematologic: No blood thinners, No blood disorders, No bleeding, No anemia, No blood clots Neuro Neurologic: No weakness Exam Const General: no acute distress, well developed, well hydrated Orientation: oriented to person, oriented to place, oriented to time [facility] Head: normocephalic, atraumatic Ears: external ears normal Mouth: moist mucous membranes Eyes Sclera: sclerae normal Pupils: normal by confrontation Neck Neck: no lymphadenopathy noted Neck mass: No Thyroid: thyroid normal, symmetrical Chest Chest palpation & inspection: normal inspection of the chest Resp Effort & Inspection: normal respiratory effort Auscultation: clear to auscultation bilaterally Percussion: percussion normal Cardio Rate: regular rate Rhythm: regular rhythm Heart Sounds: no murmurs GI Palpation: soft, no hepatosplenomegaly, no masses, nontender Rectal Exam: other Other: Rectal exam deferred. Skin Other: Along the right lateral edge of her latissimus dorsi muscle very close to the axillary area is the least a 10 cm soft spongy mass most likely consistent with a lipoma. It has no firm features it is not tender there is no signs of any axillary adenopathy. Extrem General: normal to inspection, no clubbing, cyanosis or edema Assessment & Plan Problems 1. Mass of subcutaneous tissue of back R22.2 Plan My plan is to remove this lesion in the OR under local MAC.We discussed the risks and benefits of the planned procedure. I have informed the patient that complications can occur including failure to complete the procedure. The patient had the opportunity to ask questions concerning the planned procedure. My staff has also explained the procedure to the patient in understandable terms and has given the patient printed material concerning the procedure. The patient freely consents to the procedure. Coding Level of Care Code Off vis,est,level 3 Diagnoses Mass of subcutaneous tissue of back R22.2 COVID (Procedure Consent) Procedure Criteria Procedure Criteria: Yes Elective The surgeon/proceduralist and patient have discussed in detail the risk of exposure to and/or potential harm posed by the COVID-19 virus with having a surgery/procedure at this time versus the risk of? delaying the surgery/procedure. It is not possible to know either the risk of delaying the surgery or procedure or chance of getting an infection with perfect accuracy, but a joint decision was made between the patient and the surgeon/proceduralist ?to proceed at this time with the scheduled surgery/procedure as indicated on the consent form. 05/07/20 [id number] <Electronically signed by Kamlesh mondragon MD> Date _ Kamlesh Lang MD I have re-examined the patient. There are no clinical changes since date of exam.
[2020-05-07 15:18] VITALS: BMI 30.7
[2020-05-10 12:05] LABS: Probe Check PASS; Specimen Processing Control PASS
[2020-05-15] VITALS (9 sets, daily range): BP systolic 128–145; BP diastolic 69–98; PULSE 58–81; RESP 15–16; TEMP 36.3–37.3; O2SAT 97–100; BMI 31.4
[2020-05-15 09:47] LABS: Internal QC Validated? YES +Cl - CLEAR BKGD; Pregnancy, Urine Negative Negative
[2020-05-15] MEDS: Lactated Ringers 1,000 ML 100 ML IV (10:00)
[2020-05-15 10:11] LABS: Bedside Glucose 82 mg/dL (70-110)
--- NOTE | 2020-05-15 11:30 | MASS_PTH ---
PATIENT: ALEX PRYOR [place] [facility] [place][id number] AGE/SX: 44/F ROOM: RE05/15/[address]: Dr. Kamlesh Lang MD : [id number] BED: DIS: 05/15/2020 SPEC #: [id number] RECD: 05/15/20 13:39 STATUS: EPIFANIO REDae #: [id number] ROMÁN: 05/15/20 11:[address]: Kamlesh Lang DEPT: SURGICAL PATHOLOGY RECD BY: Solomon Bright ENTERED: 05/18/20 07:22 SP TYPE: Mass OTHR DR: Dr. Mónica Davis, DO Tissues: Back, NOS Procedures: Surgery Specimen Level IV HEADER OPERATION: Back subcutaneous mass excision PRE-OP DIAGNOSIS: Mass of subcutaneous tissue of back R22.2 TISSUE SUBMITTED: Subcutaneous mass of back MICROSCOPIC DIAGNOSIS Mass of subcutaneous tissue back, excision: Mature adipose tissue consistent with lipoma. SJ:johnnie 05/19/20 MICROSCOPIC DESCRIPTION Slides are reviewed. GROSS DESCRIPTION Received in fixative is one container labeled with the patient's name and designated subcutaneous mass of back. The specimen consists of multiple variable sized pieces of yellow adipose tissue that in aggregate measure 13 x 11 x 1 cm. The largest piece appears to be disrupted. Sections reveal yellow adipose cut surfaces without area of hemorrhagic, necrosis or cystic degeneration. Dry Paste Supervisor sections are submitted in three cassettes. / SJ:johnnie 05/18/20 TC:1 CPT: 03222
[2020-05-15] MEDS: Cefazolin 2 GM in 0.9% Normal Saline 100 ML IV (11:33)
[2020-05-15] MEDS: Bupivacaine Mpf 0.5% 30 ML VIAL (12:14)
--- NOTE | 2020-05-15 12:34 | PCM.OPRPT ---
Problem List (1) Lesion of subcutaneous tissue Status: Acute Report of Operation Date of Procedure: 05/15/20 Pre-Operative Diagnosis: 10 cm subcutaneous lesion to right flank Post-Operative Diagnosis: Same Surgery/Procedure Performed:: Incision of a 10 cm subcutaneous lesion to right flank Type of Anesthesia:: General Anesthesiologist: Vasu Schultz Specimen's removed: 10 cm fatty lesion Estimated Blood Loss (mL): < 25 cc Description of Procedure: Was brought into the operating room. Placed in the supine position under excellent LMA anesthesia the patient was placed on the left lateral decubitus position with her arm on an arm board. The right flank area near the axilla was sterilely prepped and draped in usual fashion. 1% lidocaine plain was injected. A 10 and half centimeter incision was made. Dissection was carried down. The lobulated fatty lesion was removed in its entirety and sent to pathology for permanent sectioning. Local was injected electrocautery was used for good pneumostasis I irrigated out the wound I saw no lobulated piece of fat left behind. The wound was then brought together with subcu of 2-0 Vicryls deep dermals of 3-0 Vicryl was then a running 4-0 Monocryl. Dermabond was applied sterile dressings were applied and the patient tolerated the procedure well. - Admit VTE Documentation VTE Present on Admission: No VTE Mechan Device Prophylaxis: SCD's VTE Pharm Prophylaxis ordered?: No Reason prophylaxis not ordered:: Treatment Not Indicated [id number]: [id number] Exc back les sc 3 cm/>
--- NOTE | 2020-05-15 12:38 | DCINST_ITS ---
Discharge Diet: Light diet - advance as tolerated - If you have questions about your diet instructions, please talk to your doctor. Discharge Activity: May Not Drive - for 1 week or while taking narcotic pain medicine. May shower in (days): 1 Lifting Restrictions: 10 pounds Call your doctor if your incision/area has: Continuous Slow Oozing, Sudden Increased Bleeding, Increased Pain/ Swelling, Increased Redness, Foul Smelling Discharge Call your doctor if you observe: Fever of 101 or Higher Suture Line Care: Avoid Pulling/Pushing, Avoid Pinching/Bending Additional Dressing/Incision Instructions:: Change or remove dressing in 4 days. Leave steri-strips in place for 1 week. Allergies/Adverse Reactions: Allergies oxycodone Allergy (Mild, Verified 05/15/20 09:45) rash Medications to take at Discharge meloxicam 15 mg tablet 15 mg PO DAILY 04/25/19 omega-3 360 we-imp-iph-fish oil 1,200 mg capsule,delayed release 3 cap PO DAILY 04/25/19 Metformin HCl 1,000 mg PO DAILY 02/10/20 Multivitamin with Minerals [Multiple Vitamin] 1 ea PO DAILY 02/10/20 Fexofenadine HCl [Fiordaliza Allergy] 180 mg PO DAILY 05/08/20 Hydrocodone Bitart/Apap 5-325 [[place] 5MG-325MG] 1 - 2 tab PO Q4H PRN PRN 6 Days #30 tab 05/15/20 The following prescriptions were given: Hydrocodone Bitart/Apap 5-325 [[place] 5MG-325MG] 1 - 2 tab PO Q4H PRN PRN 6 Days #30 tab PRN Reason: Pain Transmission Status: Received by [facility]/pharmacy #[id number] Primary Care Physician: Mónica Davis DO [Primary Care Provider] - Test Results: Test results from this visit will be discussed in further detail at your follow- up appointment, if applicable. Please Follow Up With: Kamlesh Lang MD - [phone] When: Call to make an appointment to be seen in about 10 days.
== END 2020-05-15 15:10 | disposition home or self-care (01) ==
LOC: SDC 09:17 → AC 09:17
PROVIDERS: Anesthesiology; PCP Family Medicine; Referring Provider Family Medicine; Visit Provider Surgery
PROC: (CPT 21931; principal; 2020-05-15 11:15)
DX: D17.1 Benign lipomatous neoplasm of skin and subcutaneous tissue of trunk (principal); Z11.59 Encounter for screening for other viral diseases; E28.2 Polycystic ovarian syndrome; Z79.84 Long term (current) use of oral hypoglycemic drugs
CPT/HCPCS: 00820; 21931; 81025; 82962; 87635; 88305; 94799; J7120; J2405; U0003

== ENCOUNTER → 2020-06-09 12:26 | Outpatient (CLI) | payer OTHER, SELFPAY ==
[2020-05-15 09:45] VITALS: BMI 31.4
[2020-06-09 09:16] LABS: hCG Titer Quant., Serum < 1 mIU/mL (1-3)
[2020-06-09 09:18] LABS: Estradiol 33.5 pg/mL; Luteinizing Hormone 4.7 mIU/mL; Thyroid Stim Hormone (TSH) 1.46 uIU/mL (0.358-3.74)
[2020-06-09 09:44] LABS: Progesterone Level 0.24 ng/mL (See Comment)
--- NOTE | 2020-06-09 12:27 | US_ITS ---
STUDY: ULTRASOUND OF THE FEMALE PELVIS - COMPLETE REASON FOR EXAM: Female, 44 years old. INFERTILITY -- ENDO MEASUREMENT LMP: 06/07/2020 TECHNIQUE: Transabdominal and Transvaginal TECHNICAL QUALITY: Adequate. COMPARISON: Comparison is made with prior study dated 04/14/2020. FINDINGS: The uterus is retroverted and is in a midline position. The uterus measures 8.3 cm x 5.6 x 3.4 cm. Normal uterine cervix. The endometrium measures 6.5 mm in thickness, and is heterogeneous (striated). There is no demonstrated endometrial mass. There is an 8mm by 8mm by 4 mm fibroid in posterior fundal aspect of the uterus. I.U.D. - The patient does not have an I.U.D. The right ovary is visualized. The right ovary measures 3.6 cm x 2.8 cm x 2.5 cm. There is no right ovarian cyst or ovarian mass. There is no visualized right adnexal mass or complex lesion. There is normal arterial and normal venous vascularity. The left ovary is visualized. The left ovary measures 3.4 cm x 2.6 cm x 2.2 cm. There is no left ovarian cyst or ovarian mass. There is no visualized left adnexal mass or complex lesion. There is normal arterial and normal venous vascularity. There is no fluid in the cul-de-sac. US/Transvaginal Non- IMPRESSION: Small uterine fibroid. Electronically Signed: Zhou Castrejon, at 14:05 EDT , Service support ,
--- NOTE | 2020-06-09 12:27 | US_ITS ---
STUDY: ULTRASOUND OF THE FEMALE PELVIS - COMPLETE REASON FOR EXAM: Female, 44 years old. INFERTILITY -- ENDO MEASUREMENT LMP: 06/07/2020 TECHNIQUE: Transabdominal and Transvaginal TECHNICAL QUALITY: Adequate. COMPARISON: Comparison is made with prior study dated 04/14/2020. FINDINGS: The uterus is retroverted and is in a midline position. The uterus measures 8.3 cm x 5.6 x 3.4 cm. Normal uterine cervix. The endometrium measures 6.5 mm in thickness, and is heterogeneous (striated). There is no demonstrated endometrial mass. There is an 8mm by 8mm by 4 mm fibroid in posterior fundal aspect of the uterus. I.U.D. - The patient does not have an I.U.D. The right ovary is visualized. The right ovary measures 3.6 cm x 2.8 cm x 2.5 cm. There is no right ovarian cyst or ovarian mass. There is no visualized right adnexal mass or complex lesion. There is normal arterial and normal venous vascularity. The left ovary is visualized. The left ovary measures 3.4 cm x 2.6 cm x 2.2 cm. There is no left ovarian cyst or ovarian mass. There is no visualized left adnexal mass or complex lesion. There is normal arterial and normal venous vascularity. There is no fluid in the cul-de-sac. US/Pelvic (Non ) IMPRESSION: Small uterine fibroid. Electronically Signed: Zhou Castrejon, at 14:05 EDT , Service support ,
== END ==
PROVIDERS: PCP Family Medicine; Referring Provider Obstetrics & Gynecology; Visit Provider Obstetrics & Gynecology
DX: Z87.42 Personal history of other diseases of the female genital tract (principal)
CPT/HCPCS: 36415; 76830; 76856; 82670; 83001; 83002; 84144; 84443; 84702

== ENCOUNTER → 2020-06-16 18:30 | Outpatient (CLI) | payer OTHER, SELFPAY ==
[2020-05-15 09:45] VITALS: BMI 31.4
[2020-06-16 09:57] LABS: Estradiol 345.2 pg/mL; Luteinizing Hormone 8.1 mIU/mL
[2020-06-16 10:22] LABS: Progesterone Level < 0.21 ng/mL (See Comment)
--- NOTE | 2020-06-16 18:32 | US_ITS ---
STUDY: ULTRASOUND OF THE FEMALE PELVIS - COMPLETE REASON FOR EXAM: Female, 44 years old. Infertility TECHNIQUE: Transabdominal and Transvaginal TECHNICAL QUALITY: Adequate. COMPARISON: 06/09/20 FINDINGS: The uterus is retroverted and is in a midline position. The uterus measures 7.8 x 4.8 x 4.1 cm. There is trace fluid in the cervix. The endometrium measures 13 mm in thickness, and is hyperechoic and trilaminar in appearance. There is no demonstrated endometrial mass. There is a stable subcentimeter fibroid in the fundus. The right ovary is visualized. The right ovary measures 2.9 x 2.7 x 2.2 cm. There are physiologic follicles in the right ovary. There is no right ovarian cyst or ovarian mass. There is no visualized right adnexal mass or complex lesion. There is normal arterial and normal venous vascularity. The left ovary is visualized. The left ovary measures 3.1 x 2.6 x 1.6 cm. There are physiologic follicles in the left ovary. There is no left ovarian cyst or ovarian mass. There is no visualized left adnexal mass or complex lesion. There is normal arterial and normal venous vascularity. There is no fluid in the cul-de-sac. US/Pelvic (Non ) IMPRESSION: Thickened endometrium which is likely due to cyclic change. Stable subcentimeter fibroid in the uterus. Physiologic follicles noted in the ovaries. Electronically Signed: Yury Lopes, at 19:54 EDT Tel , Service support ,
--- NOTE | 2020-06-16 18:38 | US_ITS ---
STUDY: ULTRASOUND OF THE FEMALE PELVIS - COMPLETE REASON FOR EXAM: Female, 44 years old. Infertility TECHNIQUE: Transabdominal and Transvaginal TECHNICAL QUALITY: Adequate. COMPARISON: 06/09/20 FINDINGS: The uterus is retroverted and is in a midline position. The uterus measures 7.8 x 4.8 x 4.1 cm. There is trace fluid in the cervix. The endometrium measures 13 mm in thickness, and is hyperechoic and trilaminar in appearance. There is no demonstrated endometrial mass. There is a stable subcentimeter fibroid in the fundus. The right ovary is visualized. The right ovary measures 2.9 x 2.7 x 2.2 cm. There are physiologic follicles in the right ovary. There is no right ovarian cyst or ovarian mass. There is no visualized right adnexal mass or complex lesion. There is normal arterial and normal venous vascularity. The left ovary is visualized. The left ovary measures 3.1 x 2.6 x 1.6 cm. There are physiologic follicles in the left ovary. There is no left ovarian cyst or ovarian mass. There is no visualized left adnexal mass or complex lesion. There is normal arterial and normal venous vascularity. There is no fluid in the cul-de-sac. US/Transvaginal Non- IMPRESSION: Thickened endometrium which is likely due to cyclic change. Stable subcentimeter fibroid in the uterus. Physiologic follicles noted in the ovaries. Electronically Signed: Yury Lopes, at 19:54 EDT Tel , Service support ,
== END ==
PROVIDERS: PCP Family Medicine; Referring Provider Obstetrics & Gynecology; Visit Provider Obstetrics & Gynecology
DX: Z87.42 Personal history of other diseases of the female genital tract (principal)
CPT/HCPCS: 36415; 76830; 76856; 82670; 83002; 84144

== ENCOUNTER → 2020-06-26 07:20 | Outpatient (CLI) | payer OTHER, SELFPAY ==
[2020-05-15 09:45] VITALS: BMI 31.4
[2020-06-26 09:14] LABS: Estradiol 351.3 pg/mL
[2020-06-26 10:01] LABS: Progesterone Level 51.28 ng/mL (See Comment)
== END ==
PROVIDERS: PCP Family Medicine; Referring Provider Obstetrics & Gynecology; Visit Provider Obstetrics & Gynecology
DX: Z87.42 Personal history of other diseases of the female genital tract (principal)
CPT/HCPCS: 36415; 82670; 84144

== ENCOUNTER → 2020-07-03 07:30 | Outpatient (CLI) | payer OTHER, SELFPAY ==
[2020-05-15 09:45] VITALS: BMI 31.4
[2020-07-03 08:29] LABS: Progesterone Level 48.03 ng/mL (See Comment)
[2020-07-03 08:31] LABS: hCG Titer Quant., Serum < 1 mIU/mL (1-3)
== END ==
PROVIDERS: PCP Family Medicine; Referring Provider Obstetrics & Gynecology; Visit Provider Obstetrics & Gynecology
DX: Z87.42 Personal history of other diseases of the female genital tract (principal)
CPT/HCPCS: 36415; 84144; 84702

== ENCOUNTER → 2020-07-09 11:39 | Outpatient (CLI) | payer OTHER, SELFPAY ==
[2020-05-15 09:45] VITALS: BMI 31.4
--- NOTE | 2020-07-09 11:40 | US_ITS ---
STUDY: ULTRASOUND OF THE FEMALE PELVIS - COMPLETE REASON FOR EXAM: Female, 44 years old. Infertility LMP: 07/07/2020. TECHNIQUE: Transabdominal and Transvaginal TECHNICAL QUALITY: Adequate. COMPARISON: Comparison is made with prior study dated 06/16/2020. FINDINGS: The uterus is retroverted and is in a midline position. The uterus measures 8 cm x 5.7 cm x 4.6 cm. Normal uterine cervix. The endometrium measures 6.8 mm in thickness, and is hyperechoic. There is no demonstrated endometrial mass. Stable 1 cm x 0.7 cm x 0.5 cm fibroid in the fundus. I.U.D. - The patient does not have an I.U.D. The right ovary is visualized. The right ovary measures 2.8 cm x 2.4 cm x 2.0 cm. There is no right ovarian cyst or ovarian mass. There is no visualized right adnexal mass or complex lesion. There is normal arterial and normal venous vascularity. The left ovary is visualized. The left ovary measures 3.6 cm x 2.3 cm x 2 cm. There is no left ovarian cyst or ovarian mass. There is no visualized left adnexal mass or complex lesion. There is normal arterial and normal venous vascularity. There is no fluid in the cul-de-sac. The pre void volume of the bladder was 1035 ml. Polycystic ovary disease: No. US/Pelvic (Non ) IMPRESSION: Stable small fundal fibroid. Electronically Signed: Zhou Castrejon, at 13:37 EDT , Service support ,
--- NOTE | 2020-07-09 11:40 | US_ITS ---
STUDY: ULTRASOUND OF THE FEMALE PELVIS - COMPLETE REASON FOR EXAM: Female, 44 years old. Infertility LMP: 07/07/2020. TECHNIQUE: Transabdominal and Transvaginal TECHNICAL QUALITY: Adequate. COMPARISON: Comparison is made with prior study dated 06/16/2020. FINDINGS: The uterus is retroverted and is in a midline position. The uterus measures 8 cm x 5.7 cm x 4.6 cm. Normal uterine cervix. The endometrium measures 6.8 mm in thickness, and is hyperechoic. There is no demonstrated endometrial mass. Stable 1 cm x 0.7 cm x 0.5 cm fibroid in the fundus. I.U.D. - The patient does not have an I.U.D. The right ovary is visualized. The right ovary measures 2.8 cm x 2.4 cm x 2.0 cm. There is no right ovarian cyst or ovarian mass. There is no visualized right adnexal mass or complex lesion. There is normal arterial and normal venous vascularity. The left ovary is visualized. The left ovary measures 3.6 cm x 2.3 cm x 2 cm. There is no left ovarian cyst or ovarian mass. There is no visualized left adnexal mass or complex lesion. There is normal arterial and normal venous vascularity. There is no fluid in the cul-de-sac. The pre void volume of the bladder was 1035 ml. Polycystic ovary disease: No. US/Transvaginal Non- IMPRESSION: Stable small fundal fibroid. Electronically Signed: Zhou Castrejon, at 13:37 EDT , Service support ,
[2020-07-09 13:41] LABS: Progesterone Level 1.03 ng/mL (See Comment)
[2020-07-09 13:44] LABS: hCG Titer Quant., Serum < 1 mIU/mL (1-3)
[2020-07-09 13:52] LABS: Estradiol 46.9 pg/mL; Follicle Stimulating Hormone 6.5 mIU/mL; Luteinizing Hormone 3.1 mIU/mL; Thyroid Stim Hormone (TSH) 0.51 uIU/mL (0.358-3.74)
== END ==
PROVIDERS: PCP Family Medicine; Referring Provider Obstetrics & Gynecology; Visit Provider Obstetrics & Gynecology
DX: E28.2 Polycystic ovarian syndrome (principal); Z87.42 Personal history of other diseases of the female genital tract
CPT/HCPCS: 36415; 76830; 76856; 82670; 83001; 83002; 84144; 84443; 84702

== ENCOUNTER → 2020-07-14 08:06 | Outpatient (CLI) | payer OTHER, SELFPAY ==
[2020-05-15 09:45] VITALS: BMI 31.4
--- NOTE | 2020-07-14 08:07 | US_ITS ---
STUDY: ULTRASOUND TRANSVAGINAL CLINICAL: Female, 45 years old. INFERTILITY- ENDO THICKNESS TECHNIQUE: Transvaginal COMPARISON: None. FINDINGS: Normal uterine size measuring 7.7 x 6.2 x 4.1 cm in maximal dimension and is retroverted. A single fibroid measuring 9 x 8 x 5 mm in the mid posterior aspect of the uterus. There is no IUD.. Normal endometrial thickness measuring 11 mm. There are no endometrial masses, and there is no fluid in the endometrial cavity. Normal uterine cervix. Normal right ovary, measuring 2.9 x 2.9 x 2.5 cm. There are multiple follicles without a dominant cyst. Normal left ovary, measuring 3.4 x 2.5 x 2.1 cm. There are multiple follicles without a dominant cyst. There is no free fluid in the pelvis. Polycystic ovary disease: No. US/Transvaginal Non- IMPRESSION: A subcentimeter fibroid measuring 9 x 8 x 5 mm in the mid posterior aspect of the uterus which is retroverted. Endometrium measuring 11 mm. Normal bilateral ovaries. No evidence of free fluid in the cul-de-sac. Electronically Signed: Shayne Rouse MD at 9:56 EDT Tel [phone], Service support ,
[2020-07-14 09:34] LABS: Luteinizing Hormone 5.8 mIU/mL
[2020-07-15 09:49] LABS: Progesterone Level < 0.21 ng/mL (See Comment)
== END ==
PROVIDERS: PCP Family Medicine; Referring Provider Obstetrics & Gynecology; Visit Provider Obstetrics & Gynecology
DX: E28.2 Polycystic ovarian syndrome (principal); Z87.42 Personal history of other diseases of the female genital tract
CPT/HCPCS: 36415; 76830; 82670; 83002; 84144

== ENCOUNTER → 2020-07-24 08:03 | Outpatient (CLI) | payer OTHER, SELFPAY ==
[2020-05-15 09:45] VITALS: BMI 31.4
[2020-07-24 08:51] LABS: Estradiol 309.5 pg/mL
[2020-07-24 09:19] LABS: Progesterone Level 18.83 ng/mL (See Comment)
== END ==
PROVIDERS: PCP Family Medicine; Referring Provider Obstetrics & Gynecology; Visit Provider Obstetrics & Gynecology
DX: Z87.42 Personal history of other diseases of the female genital tract (principal)
CPT/HCPCS: 36415; 82670; 84144

== ENCOUNTER → 2020-07-29 08:11 | Outpatient (CLI) | payer OTHER, SELFPAY ==
[2020-05-15 09:45] VITALS: BMI 31.4
[2020-07-29 10:39] LABS: hCG Titer Quant., Serum < 1 mIU/mL (1-3)
[2020-07-29 11:00] LABS: Progesterone Level 54.33 ng/mL (See Comment)
== END ==
PROVIDERS: PCP Family Medicine; Referring Provider Obstetrics & Gynecology; Visit Provider Obstetrics & Gynecology
DX: Z87.42 Personal history of other diseases of the female genital tract (principal)
CPT/HCPCS: 36415; 84144; 84702

== ENCOUNTER → 2020-09-01 11:58 | Outpatient (CLI) | payer OTHER, SELFPAY ==
[2020-05-15 09:45] VITALS: BMI 31.4
--- NOTE | 2020-09-01 12:15 | US_ITS ---
INDICATION: infertility EXAMINATION: Ultrasound US Transvaginal Non-OB TECHNIQUE: Transvaginal (for optimal evaluation of the adnexa) pelvic ultrasound was performed. Grayscale, spectral waveform, and color flow Doppler evaluation of the adnexa. COMPARISON: Previous pelvic ultrasound obtained on 07/14/2020 FINDINGS: UTERUS: Anteverted. The uterus measures 7.1 x 4.0 . An intramural uterine leiomyomas noted in the posterior aspect of the uterus measuring 9 x 6 mm in size. This does not extend to the serosal or endometrial surface of the uterus. The endometrial stripe measures 4.5 mm in AP diameter which is within normal limits. RIGHT OVARY: 3.0 x 2.2 x 2.4 cm. Non-enlarged, normal echogenicity. There is normal arterial inflow and venous outflow present in the right ovary. A 1.5 cm physiologic cyst is noted in the posterior aspect of the right ovary. LEFT OVARY: 3.2 x 2.3 x 2.5 cm . Non-enlarged, normal echogenicity. There is normal arterial inflow and venous outflow present in the left ovary. There are peripheral physiologic cyst seen in the left ovary the largest of which measures 1.1 x 0.8 x 0.7 cm in size. A smaller adjacent cyst measuring about 1 cm in size is also seen. FREE FLUID: None. US/Transvaginal Non- IMPRESSION: Physiologic cysts are noted in both ovaries.. Electronically Signed: Laron Jacinto, at 16:33 EST Tel , Service support ,
[2020-09-01 13:48] LABS: hCG Titer Quant., Serum < 1 mIU/mL (1-3)
[2020-09-01 13:52] LABS: Progesterone Level 0.68 ng/mL (See Comment)
[2020-09-01 13:53] LABS: Estradiol 67.5 pg/mL; Follicle Stimulating Hormone 4.5 mIU/mL; Thyroid Stim Hormone (TSH) 1.11 uIU/mL (0.358-3.74)
== END ==
PROVIDERS: PCP Family Medicine; Referring Provider Obstetrics & Gynecology; Visit Provider Obstetrics & Gynecology
DX: E28.2 Polycystic ovarian syndrome (principal); Z87.42 Personal history of other diseases of the female genital tract
CPT/HCPCS: 36415; 76830; 82670; 83001; 83002; 84144; 84443; 84702

== ENCOUNTER → 2020-09-08 13:53 | Outpatient (CLI) | payer OTHER, SELFPAY ==
[2020-05-15 09:45] VITALS: BMI 31.4
--- NOTE | 2020-09-08 14:02 | US_ITS ---
STUDY: ULTRASOUND OF THE FEMALE PELVIS - COMPLETE REASON FOR EXAM: Female, 45 years old. INFERTILITY LMP: 08/30/2020 TECHNIQUE: Transvaginal TECHNICAL QUALITY: Adequate. COMPARISON: None. FINDINGS: The uterus is retroverted and is in a midline position. The uterus measures 7.7 cm x 5.7 cm x 4.4 cm. Normal uterine cervix. The endometrium measures 9.0 mm in thickness, and is heterogeneous (striated). There is no demonstrated endometrial mass. There is a 9 mm x 7 mm x 5 mm fundal fibroid. I.U.D. - The patient does not have an I.U.D. The right ovary is visualized. The right ovary measures 2.8 cm x 2 cm x 2.8 cm. There is a dominant follicle within it measuring 1.4 cm x 0.8 cm x 0.8 cm. There is no visualized right adnexal mass or complex lesion. There is normal arterial and normal venous vascularity. The left ovary is visualized. The left ovary measures 3.2 cm x 2.4 cm x 2.1 cm. There is no left ovarian cyst or ovarian mass. There is no visualized left adnexal mass or complex lesion. There is normal arterial and normal venous vascularity. There is no fluid in the cul-de-sac. US/Transvaginal Non- IMPRESSION: Small uterine fibroid. Dominant follicle in the right ovary measuring 1.4 cm x 0.8 cm x 0.8 cm. Electronically Signed: Zhou Castrejon, at 14:41 EST , Service support ,
[2020-09-08 14:37] LABS: Estradiol 418.8 pg/mL; Luteinizing Hormone 6.9 mIU/mL; Progesterone Level 0.43 ng/mL (See Comment)
== END ==
PROVIDERS: PCP Family Medicine; Visit Provider Obstetrics & Gynecology
DX: E28.2 Polycystic ovarian syndrome (principal)
CPT/HCPCS: 36415; 76830; 82670; 83002; 84144

== ENCOUNTER → 2020-09-22 08:17 | Outpatient (CLI) | payer OTHER, SELFPAY ==
[2020-05-15 09:45] VITALS: BMI 31.4
[2020-09-22 09:24] LABS: Estradiol 274.9 pg/mL
[2020-09-22 09:25] LABS: Progesterone Level 16.64 ng/mL (See Comment)
== END ==
PROVIDERS: PCP Family Medicine; Referring Provider Obstetrics & Gynecology; Visit Provider Obstetrics & Gynecology
DX: E28.2 Polycystic ovarian syndrome (principal); Z87.42 Personal history of other diseases of the female genital tract
CPT/HCPCS: 36415; 82670; 84144

== ENCOUNTER → 2020-09-28 07:45 | Outpatient (CLI) | payer OTHER, SELFPAY ==
[2020-05-15 09:45] VITALS: BMI 31.4
[2020-09-28 08:55] LABS: hCG Titer Quant., Serum < 1 mIU/mL (1-3)
[2020-09-28 09:30] LABS: Progesterone Level 28.98 ng/mL (See Comment)
== END ==
PROVIDERS: PCP Family Medicine; Referring Provider Obstetrics & Gynecology; Visit Provider Obstetrics & Gynecology
DX: E28.2 Polycystic ovarian syndrome (principal); Z87.42 Personal history of other diseases of the female genital tract
CPT/HCPCS: 36415; 84144; 84702

== ENCOUNTER → 2022-10-28 | Outpatient (CLI) | payer OTHER, SELFPAY ==
[2022-10-28 12:27] LABS: Absolute Lymphocyte Count 1.84 X10^3/uL (0.83-4.51); Absolute Neutrophil Count 4.1 X10^3/uL (2.0-7.7); Basophil# 0.05 X10^3/uL; Basophil% 0.8 % (0-1); Eosinophil# 0.17 X10^3/uL; Eosinophils% 2.6 % (0-5); Hematocrit 39.8 % (37-47); Hemoglobin 13.1 g/dL (12.0-15.0); Lymphocyte # 1.84 X10^3/ul (0.83-4.51); Lymphocyte % 27.8 % (19-41); Mean Corp Hgb Conc 32.9 g/dL (32-36); Mean Corpuscular Hgb 29.6 pg (27.0-32.0); Mean Platelet Vol. 10.4 fl (6.2-12.0); Monocyte# 0.44 X10^3/uL; Monocyte% 6.6 % (0-10); NRBC Flagged by Analyzer 0 % (0-5); Neutrophil % 61.9 % (47-70); Platelet Count 278 K/mm3 (150-450); RBC Distribution Width CV 12.3 % (11.6-14.6); RBC Distribution Width SD 40.4 fl (35.1-43.9); Red Blood Count 4.42 M/mm3 (4.2-5.4); White Blood Count 6.6 K/mm3 (4.4-11.0)
[2022-10-28 12:53] LABS: ALB/GLOB Ratio 0.8 RATIO (0.9-2.4); AST(SGOT) 14 U/L (15-37); Alanine Aminotransfer ALT/SGPT 28 U/L (13-56); Albumin, Serum 3.2 g/dL (3.2-5.0); Alkaline Phosphatase 58 U/L (45-117); Anion Gap 7 (5-15); BUN 10 mg/dL (7-18); BUN/Creat Ratio 13.7 RATIO (10-20); Calcium,Total 8.7 mg/dL (8.5-10.1); Chloride 104 mmol/L (98-107); Creatinine, Serum 0.73 mg/dL (0.55-1.02); EST Glomerular Filtration Rate 90 mL/min (>60); Est Glom Filt Rate - Afr Amer 109 mL/min (>60); Globulin 3.9 g/dL (2.2-4.2); Glucose 99 mg/dL (74-106); Protein, Total 7.1 g/dL (6.4-8.2); Sodium Level 138 mmol/L (136-145)
== END | disposition home or self-care (01) ==
LOC: BFHLAB 09:39
PROVIDERS: PCP Family Medicine; Visit Provider Family Medicine
DX: Z01.818 Encounter for other preprocedural examination (principal)
CPT/HCPCS: 36415; 80053; 85025

== ENCOUNTER 2022-11-03 14:50 | Observation (INO) | payer OTHER, SELFPAY ==
[2022-11-03] VITALS (10 sets, daily range): BP systolic 130–160; BP diastolic 78–97; PULSE 73–92; RESP 16–18; TEMP 36.1–37.2; O2SAT 92–98; BMI 31.9
--- NOTE | 2022-11-03 | TESH_PTH ---
PATIENT: ALEX PRYOR LOC: MS3 U#:[id number] AGE/SX: 47/F ROOM: [facility] [place] RE11/03/[address]: Dr. Toro Valdovinos DPM : 1975 BED: 1 DIS: 11/05/2022 SPEC #: [id number] RECD: 11/03/22 16:54 STATUS: EPIFANIO TRAV #: [id number] ROMÁN: 11/03/22 00:[address]: Toro Valdovinos DEPT: SURGICAL PATHOLOGY RECD BY: Nurys Villeda ENTERED: 11/04/22 09:12 SP TYPE: TENDON OTHR DR: Dr. Mónica Davis, DO Dr. Logan Toure DO Tissues: A - Tendon and tendon sheath, NOS B - Joint of foot, NOS Procedures: Surgery Specimen Level III HEADER OPERATION: Peroneal tendon debridement and repair of right foot PRE-OP DIAGNOSIS: Ankle instability, peroneal tendon tear, subtalar joint arthritis TISSUE SUBMITTED: A ? Debridement tissue from peroneal tendon right, B - Debridement tissue from subtalar joint right MICROSCOPIC DIAGNOSIS A. Right peroneal tendon, excision: Fragments of skeletal muscle with mild reactive change. Mild synovial hyperplasia. Tendinous tissue with reactive change. B. Tissue from right subtalar joint, biopsy: Fragments of unremarkable bone and cartilage. Synovium with mild hyperplasia and minimal chronic inflammation. AM:johnnie 11/07/2022 MICROSCOPIC DESCRIPTION Slides are reviewed. GROSS DESCRIPTION A - Received in fixative is one container labeled with the patient's name and designated peroneal tendon right. The specimen consists of two irregular fragments of light to dark cabello soft tissue ranging in size from 1.5 to 5 cm. Email Specialist sections are submitted in one cassette. B - Received in fixative is one container labeled with the patient's name and designated right subtalar joint. The specimen consists of multiple irregular fragments of light cabello-white soft tissue that in aggregate measure 2.5 x 2 x 0.2 cm. The specimen is totally submitted in one cassette. / AM:johnnie 11/04/2022 TC:5 CPT: 67174 x2
[2022-11-03 11:05] LABS: Internal QC Validated? YES +Cl - CLEAR BKGD; Pregnancy, Urine Negative Negative
[2022-11-03] MEDS: Lactated Ringers 1,000 ML 15 ML IV ×2 (11:05→15:00)
[2022-11-03] MEDS: Cefazolin 2 GM in 0.9% Normal Saline 100 ML IV (11:59)
--- NOTE | 2022-11-03 12:55 | RAD_ITS ---
INDICATION: Pain, right tendon debridement and repair, arthrodesis, lateral ankle stabilization, fluoroscopic images. EXAMINATION/TECHNIQUE: X-RAY - RIGHT XR Ankle 2 Views COMPARISON: None. FINDINGS: Frontal and lateral intraoperative fluoroscopic images of ankle obtained. 3 images, 71.8 seconds of fluoroscopy with 1.71 mGy. Arthrodesis screws spanning hindfoot. Pinning of distal fibula. RAD/Ankle 2 Views IMPRESSION: Intraoperative postop images of right ankle, see separate operative report. Electronically Signed: Logan Muller MD at 5:56 EST ,
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
--- NOTE | 2022-11-03 15:00 | PCM.HP.STD ---
HPI - General General Date of Admission: 11/03/22 HPI Narrative ALEX PRYOR, is a 47 F who presents s/p right foot/ankle surgery. Patient did well with the surgery. She is admitted for post op pain control, antibiotic prophylaxis, and management. [facility] Medical History (Updated 11/03/22 @ 15:[address] Toro Valdovinos, DPBetito) Abrasion Arthritis Discoloration of skin Endometriosis determined by laparoscopy (~02/11/20) Infertility Injury of head and neck Lipoma of back PCOS (polycystic ovarian syndrome) Wears contact lenses Wears glasses Home Medications meloxicam 15 mg tablet 15 mg PO DAILY 04/25/19 [History Last Taken 10/25/22] omega-3 360 dr-elm-mfx-fish oil 1,200 mg capsule,delayed release (Fish Oil) 3 cap PO DAILY 04/25/19 [History Last Taken 10/31/22] metformin 500 mg tablet 1,000 mg PO DAILY polycystic ovarian syndro 02/10/20 [History Last Taken Unknown] multivitamin with minerals 1 ea PO DAILY 02/10/20 [History Last Taken Unknown] fexofenadine 180 mg tablet 180 mg PO DAILY allergies 05/08/20 [History Last Taken Unknown] Allergy/AdvReac Type Severity Reaction Status Date / Time oxycodone Allergy Mild rash Verified 11/03/22 10:48 hydrocodone Allergy Itching Verified 11/03/22 10:48 Family History Father Diabetes Mother Cancer uterine Aunt Breast cancer Grandmother Asthma Surgical History H/O laparoscopy (~02/11/20) H/O ovarian cystectomy (~02/11/20) S/P excision of lipoma Social History (Updated 06/07/20 @ 12:[address] Kamlesh Lang MD) number of children: 0 current occupational status: employed current occupation: [employer] Smoking Status: Never smoker alcohol intake: never substance use type: does not use diet: low carbohydrate caffeine: Yes (4) Type: coffee and tea seatbelt use: always do you feel safe at home: Yes additional social history: Danielito CHAKRABORTY Vital Signs Vital Signs Vital Signs: 11/03/22 10:44 11/03/22 10:44 Temperature 98.9 F Temperature Source Temporal Pulse Rate 73 Respiratory Rate 16 Respiratory Pattern Normal Blood Pressure 130/79 H Blood Pressure Mean 96 Blood Pressure Source Monitor Blood Pressure Position Semi-Fowlers Blood Pressure Location Left Arm Pulse Ox 98 Oxygen Delivery Method Room Air Weight Weight: 89.9 kg Body Mass Index (BMI) 31.9 Physical Exam Narrative Right lower extremity with dressing\splint clean, dry and intact. No complications. Results Lab / Micro Data Labs: Laboratory Results - last 24 hr 11/03/22 10:43: Urine Test Negative Assessment & Plan Assessment/Plan (1) Arthritis of right ankle: (2) Strain of muscle(s) and tendon(s) of peroneal muscle group at lower leg level, right leg, subsequent encounter: (3) Sprain of other ligament of right ankle, subsequent encounter: (4) Peroneal tendinitis, right leg: (5) Acute right ankle pain: PLAN: Plan No weightbearing right foot. Keep foot elevated. Pain management: Tramadol, Acetaminophen, Gabapentin DVT Prophylaxis: Start Lovenox 40mg subc tomorrow Antibiotic prophylaxis: Cefazolin 1g IV q 8 hours.
--- NOTE | 2022-11-03 15:17 | RAD_ITS ---
INDICATION: post op EXAMINATION/TECHNIQUE: X-RAY - RIGHT XR Ankle Min 3 Views 3 VIEWS COMPARISON: Intraoperative spot films same day FINDINGS: 3 views of the right ankle obtained in a posterior fiberglass splint show stable appearance of the right foot status post surgical arthrodesis of the talocalcaneal junction with 2 compression screws. Joint spaces anatomically maintained. RAD/Ankle min 3 Views IMPRESSION: Status post surgical arthrodesis right talocalcaneal junction. Electronically Signed: Ashwin Tong MD at 17:15 EST ,
--- NOTE | 2022-11-03 15:17 | RAD_ITS ---
INDICATION: post op EXAMINATION/TECHNIQUE: X-RAY - RIGHT XR Foot Min 3 Views 3 VIEWS COMPARISON: Right ankle series same date FINDINGS: 3 views right foot obtained in posterior fiberglass N shows stable appearance of hindfoot arthrodesis with 2 compression screws. No acute fracture. Remaining included joint spaces anatomically maintained. RAD/Foot min 3 Views IMPRESSION: Examination in splint status post right talocalcaneal arthrodesis. Electronically Signed: Ashwin Tong MD at 17:18 EST ,
[2022-11-03] MEDS: traMADol 50 MG Tablet PO (22:41)
[2022-11-03] MEDS: Cefazolin 1 GM/50 ML BAG IV (22:42)
[2022-11-04] VITALS (7 sets, daily range): BP systolic 113–132; BP diastolic 57–71; PULSE 72–92; RESP 16–18; TEMP 36.2–37.1; O2SAT 95–100
[2022-11-04] MEDS: Cefazolin 1 GM/50 ML BAG IV ×3 (06:17→22:21)
[2022-11-04] MEDS: Enoxaparin 40 MG/0.4 ML Syringe SC (06:19)
[2022-11-04 07:31] LABS: Absolute Lymphocyte Count 1.74 X10^3/uL (0.83-4.51); Absolute Neutrophil Count 11.5 X10^3/uL (2.0-7.7); Basophil# 0.02 X10^3/uL; Basophil% 0.1 % (0-1); Hematocrit 38.7 % (37-47); Hemoglobin 12.4 g/dL (12.0-15.0); Lymphocyte # 1.74 X10^3/ul (0.83-4.51); Lymphocyte % 12.2 % (19-41); Mean Corpuscular Hgb 28.9 pg (27.0-32.0); Mean Corpuscular Volume 90.2 fL (81-99); Mean Platelet Vol. 9.9 fl (6.2-12.0); Monocyte# 0.98 X10^3/uL; Monocyte% 6.9 % (0-10); NRBC Flagged by Analyzer 0 % (0-5); Neutrophil # 11.48 X10^3/uL (2.7-7.7); Neutrophil % 80.2 % (47-70); Platelet Count 332 K/mm3 (150-450); RBC Distribution Width CV 12.4 % (11.6-14.6); RBC Distribution Width SD 40.7 fl (35.1-43.9); Red Blood Count 4.29 M/mm3 (4.2-5.4); White Blood Count 14.3 K/mm3 (4.4-11.0)
[2022-11-04 07:50] LABS: ALB/GLOB Ratio 0.9 RATIO (0.9-2.4); AST(SGOT) 17 U/L (15-37); Alanine Aminotransfer ALT/SGPT 27 U/L (13-56); Albumin, Serum 3.2 g/dL (3.2-5.0); Alkaline Phosphatase 61 U/L (45-117); Anion Gap 10 (5-15); BUN 10 mg/dL (7-18); BUN/Creat Ratio 12.8 RATIO (10-20); Calcium,Total 8.7 mg/dL (8.5-10.1); Chloride 106 mmol/L (98-107); Creatinine, Serum 0.78 mg/dL (0.55-1.02); EST Glomerular Filtration Rate 84 mL/min (>60); Est Glom Filt Rate - Afr Amer 101 mL/min (>60); Estimated Creatinine Clearance 83.47 ml/min; Globulin 3.7 g/dL (2.2-4.2); Glucose 120 mg/dL (74-106); Potassium 3.6 mmol/L (3.5-5.1); Protein, Total 6.9 g/dL (6.4-8.2); Sodium Level 141 mmol/L (136-145)
[2022-11-04] MEDS: traMADol 50 MG Tablet PO ×3 (10:54→19:47)
--- NOTE | 2022-11-04 11:25 | CASEMGMT ---
RN?CM?INVESTIGATIONS MANAGER?CM?to room to meet with patient for initial transition planning/care coordination?assessment.?RN?CM?introduced self and role at [facility].? Pt voices understanding and consents to?assessment?at this time.? Pt sitting up in chair in room in no distress at this time.? Pt is A/O at this time and answers all questions appropriately.?? Care providers, pharmacy, and demographics verified/updated at this time. PCP: Dr Davis or Dr Hays Specialists: Dr Valdovinos-griffin Preferred Pharmacy: [facility] [place] Insurance:[place] Prescription Benefit:?Yes Living Will/HPOA:?Pt does not currently have LW/HCPOA LNOK:, Danielito Living Arrangements: Lives w/ in one-story home w/basement w/3 steps to enter. Pt independent @ baseline. Nondenominational family and friends plan to bring in meals for 1st week. able to assist as needed. DME: getting a shower chair. They have borrowed a knee scooter. Pt has crutches. Pt states does not know if they have a walker available. Her is on his way in to see her and she will check w/him. If they do not have a walker available, pt would like a walker. Given list of local DME co's and she was made aware [facility] affiliated w[facility]. She chooses [facility]. Pt states no need for further DME at this time.? HHC/SNF: No hx of either. No needs identified. Pt will be NWB x 8 weeks. Therapy note reviewed. They have worked w/pt w/crutches, walker, and w/stairs. No additional therapy recommended. Pt wishes to return home and states has no concerns with going home at time of discharge.??CM?to follow for any further discharge planning/needs.? Pt voices no further concerns/needs at this time.? Advised pt to ask for?CM?if any further questions/concerns/needs arise.? Voices understanding. PLAN:??Home w/possible walker. MS3 RN CM, Maria L, aware and to f/u with pt once verifies if they already have one or not. Nishi BSN?RN?CM
[2022-11-04] MEDS: Acetaminophen 325 MG Tablet 650 MG PO ×2 (11:54→18:15)
[2022-11-04] MEDS: 0.9% Saline Lock 10 ML Syringe IV ×2 (13:16→22:21)
--- NOTE | 2022-11-04 13:47 | CASEMGMT ---
Addendum entered by Maria L Esquivel 11/04/22 15:22: Message to to make aware of walker rx on front of chart to be signed prior to dc. Green sheet on chart. Original Note: Pt is interested in a walker. RN CM in to pt room, pt states she has chosen [employer]. She is aware this will be brought to her room prior to dc. Pt denies further needs.
--- NOTE | 2022-11-04 18:25 | PN_ITS ---
Subjective Subjective Patient was seen today for follow up on right foot/ankle surgery. She relates overall she is doing well, relates block is not completely worn off. No f/c/n/v. Objective Data Objective Data Vital Signs: Vital Signs Temp Pulse Resp BP Pulse Ox O2 Del Method O2 Flow Rate 97.6 F L 75 18 123/64 H 100 Room Air 4 11/04/22 16:22 11/04/22 16:22 11/04/22 16:22 11/04/22 16:22 11/04/22 16:22 11/04/22 16:22 11/03/22 15:00 Oxygen Flow Rate (L/min) 4 Oxygen Delivery Method Room Air Weight: 89.9 kg Body Mass Index (BMI) 31.9 Intake & Output: Intake and Output for Last 24 Hours 11/02/22 11/03/22 11/04/22 23:59 23:59 23:59 Intake Total 1160 / 1160 414.75 / 414.75 Balance 1160 / 1160 414.75 / 414.75 Lab / Micro Data Result Diagrams: 11/04/22 07:11 11/04/22 07:11 Labs: Laboratory Results - last 24 hr 11/04/22 07:11: WBC 14.3 H, RBC 4.29, Hgb 12.4, Hct 38.7, MCV 90.2, MCH 28.9, MCHC 32.0, RDW Std Deviation 40.7, RDW Coeff of Radha 12.4, Plt Count 332, MPV 9.9, Immature Gran % (Auto) 0.600, Neut % (Auto) 80.2 H, Lymph % (Auto) 12.2 L, [place] % (Auto) 6.9, Eos % (Auto) 0.0, Baso % (Auto) 0.1, Absolute Neuts (auto) 11.5 H, Absolute Lymphs (auto) 1.74, Nucleated RBC % 0 11/04/22 07:11: Sodium 141, Potassium 3.6, Chloride 106, Carbon Dioxide 25.0, Anion Gap 10, BUN 10, Creatinine 0.78, Estim Creat Clear Calc 83.47, Est GFR (MDRD) Af Amer 101, Est GFR (MDRD) Non-Af 84, BUN/Creatinine Ratio 12.8, Glucose 120 H, Calcium 8.7, Total Bilirubin 0.60, AST 17, ALT 27, Alkaline Phosphatase 61, Total Protein 6.9, Albumin 3.2, Globulin 3.7, Albumin/Globulin Ratio 0.9 Radiography Diagnostic Testing: Radiology Impression Ankle X-Ray 11/03/22 12:55 IMPRESSION: Intraoperative postop images of right ankle, see separate operative report. Electronically Signed: Logan Muller MD at 5:56 EST , Physical Exam Narrative Right lower extremity with dressing/splint clean, dry and intact. No complications. CFT < 2 seconds to all toes on right foot. She is able to wiggle all toes on right foot. Assessment & Plan Assessment/Plan (1) Arthritis of right ankle: (2) Strain of muscle(s) and tendon(s) of peroneal muscle group at lower leg level, right leg, subsequent encounter: (3) Sprain of other ligament of right ankle, subsequent encounter: (4) Peroneal tendinitis, right leg: (5) Acute right ankle pain: PLAN: Plan No weightbearing right foot. Keep foot elevated. Pain management: Tramadol, Acetaminophen, Gabapentin DVT Prophylaxis: Start Lovenox 40mg subc daily. Antibiotic prophylaxis: Cefazolin 1g IV q 8 hours.
[2022-11-04] MEDS: Gabapentin 300 MG Capsule PO (22:21)
[2022-11-05] MEDS: traMADol 50 MG Tablet PO ×4 (00:16→14:03)
[2022-11-05 03:00] VITALS: BP 123/57; PULSE 79; RESP 16; TEMP 37; O2SAT 96
[2022-11-05] MEDS: Acetaminophen 325 MG Tablet 650 MG PO ×2 (03:04→09:05)
[2022-11-05] MEDS: 0.9% Saline Lock 10 ML Syringe IV ×2 (03:04→05:56)
[2022-11-05] MEDS: Enoxaparin 40 MG/0.4 ML Syringe SC (05:56)
[2022-11-05] MEDS: Cefazolin 1 GM/50 ML BAG IV (05:56)
[2022-11-05 09:07] VITALS: BP 133/67; PULSE 80; RESP 16; TEMP 37.1; O2SAT 98
--- NOTE | 2022-11-05 13:00 | PN_ITS ---
Subjective Subjective Patient was seen today for follow up on right foot. She relates block wore off and she had a lot of pain overnight, but relates she was able to get some sleep. She is resting in chair with foot elevated. No other complaints. No f/c/n/v. Objective Data Objective Data Vital Signs: Vital Signs Temp Pulse Resp BP Pulse Ox O2 Del Method O2 Flow Rate 98.7 F 80 16 133/67 H 98 Room Air 4 11/05/22 09:07 11/05/22 09:07 11/05/22 09:07 11/05/22 09:07 11/05/22 09:07 11/05/22 09:19 11/03/22 15:00 Oxygen Flow Rate (L/min) 4 Oxygen Delivery Method Room Air Weight: 89.9 kg Body Mass Index (BMI) 31.9 Intake & Output: Intake and Output for Last 24 Hours 11/03/22 11/04/22 11/05/22 23:59 23:59 23:59 Intake Total 1160 / 1160 464.75 / 464.75 1050 / 1050 Balance 1160 / 1160 464.75 / 464.75 1050 / 1050 Lab / Micro Data Result Diagrams: 11/04/22 07:11 11/04/22 07:11 Physical Exam Narrative Right lower extremity with dressing/splint clean, dry and intact. No complications. CFT < 2 seconds to all toes on right foot. She is able to wiggle all toes on right foot. No calf pain bilateral. Assessment & Plan Assessment/Plan (1) Arthritis of right ankle: (2) Strain of muscle(s) and tendon(s) of peroneal muscle group at lower leg l evel, right leg, subsequent encounter: (3) Sprain of other ligament of right ankle, subsequent encounter: (4) Peroneal tendinitis, right leg: (5) Acute right ankle pain: PLAN: Plan Evaluation performed. Findings c/w normal post op course. No weightbearing right foot. Keep foot elevated. Pain management: Tramadol, Acetaminophen - she is ready for discharge. DVT Prophylaxis: Start Lovenox 40mg subc daily. Switch to Eliquis 2.5mg PO q 12 hours. Antibiotic prophylaxis: Cefazolin 1g IV q 8 hours - will discontinue at this time. Plan to discharge home today.
--- NOTE | 2022-11-05 13:03 | PCM.DC ---
Discharge Instructions Activity Discharge Activity: May Not Drive and Use Walker Weight Bearing Status: No weight bearing (No weightbearing right foot.) Keep extremity elevated above heart level: Right Leg (Keep right foot elevated for at least 50 minutes of every hour using pillows.) Dressing / Incision Call your doctor if your incision/area has: Continuous Slow Oozing, Sudden Increased Bleeding and Foul Smelling Discharge Call your doctor if you observe: Fever of 101 or Higher, Shortness of breath, Chest pain, Increased palpitations (irregular heartbeat) and Calf discomfort Remove Dressing in: do not remove dressing Cleanse incision/area with: Keep Dressing Clean & Dry Follow Up Care Please Follow Up With: Toro Valdovinos DPM When: Next Monday sooner if needed. Call [facility] if needed - [phone] Test Results: Test results from this visit will be discussed in further detail at your follow-up appointment, if applicable. Discharge Plan Admission Admit Date/Time: 11/03/22 14:50 Attending Provider: Toro Valdovinos Primary Care Provider: Mónica Davis Consulting Providers: Logan Toure Discharge Orders/Prescriptions Prescriptions: New tramadol 50 mg Tablet 50 mg PO Q4H PRN PRN (Reason: Pain Score 4-10) Qty: 30 0RF Eliquis 2.5 mg tablet 2.5 mg PO Q12H Qty: 60 0RF acetaminophen [Tylenol Extra Strength] 500 mg tablet 500 mg PO Q4H PRN (Reason: pain) Qty: 10 0RF Continued omega 2-ufr-lzs-fish oil [Fish Oil] 360-1,200 mg capsule,delayed release(DR/EC) 3 cap PO DAILY Label Comments: stopped for surgery per instructions metformin 500 MG tablet 1,000 mg PO DAILY multivitamin with minerals 1 EACH tablet 1 ea PO DAILY fexofenadine 180 MG tablet 180 mg PO DAILY Discontinued meloxicam 15 mg tablet 15 mg PO DAILY Referrals / Follow Up: Mónica Davis DO [Primary Care Provider] - Disposition Disposition (needs filled in before D/C Order can be placed): Home, Self Care
--- NOTE | 2022-11-05 13:08 | DS.PCM_ITS ---
Providers Date of Admission: 11/03/22 Primary Care Physician: Dr. Mónica Davis DO Reason For Visit: RT TENDON DEBRIDE & REPAIR, ARTHRODESIS Diagnosis Discharge Diagnosis (1) Arthritis of right ankle: Status: Acute Code(s): M19.071 - Primary osteoarthritis, right ankle and foot (2) Strain of muscle(s) and tendon(s) of peroneal muscle group at lower leg level, right leg, subsequent encounter: Status: Acute Code(s): S86.311D - Strain of muscle(s) and tendon(s) of peroneal muscle group at lower leg level, right leg, subsequent encounter (3) Sprain of other ligament of right ankle, subsequent encounter: Status: Acute Code(s): S93.491D - Sprain of other ligament of right ankle, subsequent encounter (4) Peroneal tendinitis, right leg: Status: Acute Code(s): M76.71 - Peroneal tendinitis, right leg (5) Acute right ankle pain: Status: Acute Code(s): M25.571 - Pain in right ankle and joints of right foot Plan Evaluation performed. Findings c/w normal post op course. No weightbearing right foot. Keep foot elevated. Pain management: Tramadol, Acetaminophen - she is ready for discharge. DVT Prophylaxis: Start Lovenox 40mg subc daily. Switch to Eliquis 2.5mg PO q 12 hours. Antibiotic prophylaxis: Cefazolin 1g IV q 8 hours - will discontinue at this time. Plan to discharge home today. Medications at Discharge Home Medications omega-3 360 iu-kqd-kct-fish oil 1,200 mg capsule,delayed release (Fish Oil) 3 cap PO DAILY 04/25/19 metformin 500 mg tablet 1,000 mg PO DAILY polycystic ovarian syndro 02/10/20 multivitamin with minerals 1 ea PO DAILY 02/10/20 fexofenadine 180 mg tablet 180 mg PO DAILY allergies 05/08/20 acetaminophen 500 mg tablet (Tylenol Extra Strength) 500 mg PO Q4H PRN pain #10 tabs 11/05/22 apixaban 2.5 mg tablet (Eliquis) 2.5 mg PO Q12H #60 tabs 11/05/22 tramadol 50 mg tablet 50 mg PO Q4H PRN PRN Pain Score 4-10 #30 tabs 11/05/22 Weight / BMI Weight Weight: 89.9 kg Body Mass Index (BMI) 31.9 ABG / Lab / Microbiology Data Result Diagrams: 11/04/22 07:11 11/04/22 07:11 D/C Instructions Weight Bearing Status: No weight bearing (No weightbearing right foot.) Keep extremity elevated above heart level: Right Leg (Keep right foot elevated for at least 50 minutes of every hour using pillows.) Call your doctor if your incision/area has: Continuous Slow Oozing, Sudden Increased Bleeding and Foul Smelling Discharge Call your doctor if you observe: Fever of 101 or Higher, Shortness of breath, Chest pain, Increased palpitations (irregular heartbeat) and Calf discomfort Cleanse incision/area with: Keep Dressing Clean & Dry Please Follow Up With: Toro Valdovinos DPM When: Next Monday sooner if needed. Call [facility] if needed - [phone] Meaningful Use Info Meaningful Use Diagnoses (Choose all that apply): None applicable Discharge Plan Admission Admit Date/Time: 11/03/22 14:50 Attending Provider: Toro Valdovinos Primary Care Provider: Mónica Davis Consulting Providers: Logan Toure Discharge Orders/Prescriptions Prescriptions: New tramadol 50 mg Tablet 50 mg PO Q4H PRN PRN (Reason: Pain Score 4-10) Qty: 30 0RF Eliquis 2.5 mg tablet 2.5 mg PO Q12H Qty: 60 0RF acetaminophen [Tylenol Extra Strength] 500 mg tablet 500 mg PO Q4H PRN (Reason: pain) Qty: 10 0RF Continued omega 2-lfb-guy-fish oil [Fish Oil] 360-1,200 mg capsule,delayed re lease(DR/EC) 3 cap PO DAILY Label Comments: stopped for surgery per instructions metformin 500 MG tablet 1,000 mg PO DAILY multivitamin with minerals 1 EACH tablet 1 ea PO DAILY fexofenadine 180 MG tablet 180 mg PO DAILY Discontinued meloxicam 15 mg tablet 15 mg PO DAILY Referrals / Follow Up: Mónica Davis DO [Primary Care Provider] - Disposition Disposition (needs filled in before D/C Order can be placed): Home, Self Care
[2022-11-05 14:00] VITALS: BP 130/70; PULSE 85; RESP 18; TEMP 37; O2SAT 98
[2022-11-07 07:47] LABS: Vitamin D,25 Hydroxy 37.6 ng/mL
== END 2022-11-05 15:00 | disposition home or self-care (01) ==
LOC: SDC 16:01 → MS3 16:01
PROVIDERS: Anesthesiology; Admitting Provider Podiatrist; PCP Family Medicine; Referring Provider Podiatrist; Visit Provider Podiatrist
PROC: (CPT 28725; principal; 2022-11-03 11:30)
DX: M19.071 Primary osteoarthritis, right ankle and foot (principal); M25.371 Other instability, right ankle; M76.71 Peroneal tendinitis, right leg; S93.491A Sprain of other ligament of right ankle, initial encounter; Z86.16 Personal history of COVID-19; Z79.899 Other long term (current) drug therapy; Z79.84 Long term (current) use of oral hypoglycemic drugs; X58.XXXA Exposure to other specified factors, initial encounter
CPT/HCPCS: 28725; 01480; 64445; 27695; 28200; 36415; 73600; 73610; 73630; 76000; 80053; 81025; 82306; 85025; 88304; 88305; 94668; 96365; 96366; 96372; 97162; 99221; C1713; J7120; A4216; G0378; J2405

== ENCOUNTER 2022-11-10 09:21 | Emergency (ER) | payer OTHER, SELFPAY ==
[2022-11-10 09:22] VITALS: BP 137/85; PULSE 77; RESP 14; TEMP 36.6; O2SAT 99; BMI 30.7
--- NOTE | 2022-11-10 09:36 | VDLE_ITS ---
Reason For Study: pain RIGHT GSV is normal. CFV is compressible, spontaneous, phasic, competent and demonstrates normal augmentation. FV is compressible, spontaneous, phasic, competent and demonstrates normal augmentation. POP V is compressible, spontaneous, phasic, competent and demonstrates normal augmentation. T/P Trunk is compressible. PTV is compressible. RT PerV is compressible. Procedure This is a venous duplex using B-mode, color flow and spectral Doppler. Exam performed portable in ED. The exam was abbreviated due to the COVID 19 protocol. The exam was diagnostic. A preliminary report was called and/or faxed to Dr. Centeno. VL/Venous Duplex US, Unilateral Interpretation Summary Deep veins of the right lower extremity are patent and compressible segmentally . There is no evidence of right lower extremity deep vein thrombosis. Valvular competence austyn ears intact within the proximal deep venous system on the right . The right great saphenous vein a ppears patent and compressible segmentally. Ordering Physician: David Centeno Performed By: Mu Ventura RVT
--- NOTE | 2022-11-10 09:36 | ED.VIS.LOWEX ---
HPI History of Present Illness Chief Complaint: Lower Extremity Injury Informant: patient and spouse/S.O. Narrative Narrative: Presents ED for DVT rule out. Postop day 7 right anterior talofibular ligament repair, peroneal tendon debridement and repair, currently nonweightbearing. Reports follow-up yesterday in the office for wound check. In the evening started having calf pain. She has residual paresthesias from the nerve block. Denies chest pains or shortness of breath. Denies fevers. She called the office today was sent to the ED for evaluation. No history of DVTs. Prior similar symptoms: No PFSH PFSH Medical History Abrasion Arthritis Discoloration of skin Endometriosis determined by laparoscopy (~02/11/20) Infertility Injury of head and neck Lipoma of back PCOS (polycystic ovarian syndrome) Wears contact lenses Wears glasses Home Medications omega-3 360 fo-cbk-euw-fish oil 1,200 mg capsule,delayed release (Fish Oil) 3 cap PO DAILY 04/25/19 [History Last Taken 10/31/22] metformin 500 mg tablet 1,000 mg PO DAILY polycystic ovarian syndro 02/10/20 [History Last Taken Unknown] multivitamin with minerals 1 ea PO DAILY 02/10/20 [History Last Taken Unknown] fexofenadine 180 mg tablet 180 mg PO DAILY allergies 05/08/20 [History Last Taken Unknown] acetaminophen 500 mg tablet (Tylenol Extra Strength) 500 mg PO Q4H PRN pain #10 tabs 11/05/22 [Rx Last Taken Unknown] apixaban 2.5 mg tablet (Eliquis) 2.5 mg PO Q12H #60 tabs 11/05/22 [Rx Last Taken Unknown] tramadol 50 mg tablet 50 mg PO Q4H PRN PRN Pain Score 4-10 #30 tabs 11/05/22 [Rx Last Taken Unknown] Allergy/AdvReac Type Severity Reaction Status Date / Time oxycodone Allergy Mild rash Verified 11/10/22 09:25 hydrocodone Allergy Itching Verified 11/10/22 09:25 Family History Father Diabetes Mother Cancer uterine Aunt Breast cancer Grandmother Asthma Surgical History H/O laparoscopy (~02/11/20) H/O ovarian cystectomy (~02/11/20) S/P excision of lipoma Social History number of children: 0 current occupational status: employed current occupation: [employer] Smoking Status: Never smoker alcohol intake: never substance use type: does not use diet: low carbohydrate caffeine: Yes (4) Type: coffee and tea seatbelt use: always do you feel safe at home: Yes additional social history: Danielito CHAKRABORTY ROS ROS ED Constitutional Constitutional ED: Denies chills, fever(s) or sweats Eyes Eyes: Denies change in vision ENT ENT ED: Denies dysphagia or sore throat Cardiovascular Cardiovascular: Denies chest pain, leg edema, palpitations or racing heartbeat Respiratory/Chest Respiratory/Chest: Denies cough, dyspnea or dyspnea on exertion Gastrointestinal Gastrointestinal: Denies abdominal pain, diarrhea, nausea or vomiting Genitourinary Genitourinary ED: Denies dysuria, hematuria or urinary frequency Musculoskeletal Musculoskeletal: Reports extremity pain; Denies back pain or neck pain Integumentary Denies rash or wounds Neurologic Neurologic: Denies headache(s), paresthesias or weakness EXAM Physical Exam Const Vital Signs: 11/10/22 09:22 Temperature 97.9 F Temperature Source Temporal Pulse Rate 77 Respiratory Rate 14 Blood Pressure 137/85 H Blood Pressure Mean 102 Pulse Ox 99 Oxygen Delivery Method Room Air Positive well nourished and well developed General Appearance ED: well developed and NAD HEENT Reports moist mucous membranes normocephalic and atraumatic Eyes PERRL, EOMs intact bilaterally and conjunctivae normal General Eye ED: Yes normal appearance of both eyes Neck no lymphadenopathy and supple General: Negative for tenderness Chest Wall Chest: Negative for tenderness Resp normal respiratory effort and normal air movement Effort and Inspection: symmetric chest movement; Negative for respiratory distress Cardio regular rate, regular rhythm and no murmurs Peripheral Pulses: pulses 2+ throughout GI normal to inspection, nondistended, normoactive bowel sounds and non-tender Palpation: Negative for guarding or rebound tenderness present Back/Spine no CVA tenderness and no thoracic nor lumbar tenderness Extremity Extremity Narrative: Right lower extremity: No medial thigh pain. Short leg posterior splint was taken down due to being up to the proximal aspect of the lower leg. On evaluation had some mid calf tenderness distally. Lateral wound incision clean, dry, intact. Healing incision also noted clean, dry intact. Mild swelling of the foot. Distal pulses intact. General Extremety ED: Negative for edema or tenderness General Extremity: Negative for edema Neuro oriented x3 and no sensory deficits noted Sensorium / Orientation: awake and alert Skin no rashes or lesions noted and no wounds MDM MDM MDM Narrative Medical decision making narrative: Patient differential is DVT, postop pain with swelling, versus splint compression. No signs of infection. Due to the requirement of ultrasound, splint was taken down. Distal pulse was intact therefore clinically no concern for arterial occlusion. DVT studies were negative. Patient reports there was improvement with the splint removed from discomfort therefore likely more compression from splint and Hardik wrap. The short leg posterior splint was replaced with padding. She will remain nonweightbearing. 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 She is reassured. All questions were answered. Discharge Plan Triage Chief Complaint: Lower Extremity Injury ED Provider: David Centeno Dx/Rx/DC Orders Clinical Impression: Post-op pain, Pain of right calf Instructions: DVT Post Op Prevention Prescriptions: No Action omega 9-lil-ffd-fish oil [Fish Oil] 360-1,200 mg capsule,delayed release(DR/EC) 3 cap PO DAILY Label Comments: stopped for surgery per instructions metformin 500 MG tablet 1,000 mg PO DAILY multivitamin with minerals 1 EACH tablet 1 ea PO DAILY fexofenadine 180 MG tablet 180 mg PO DAILY tramadol 50 mg Tablet 50 mg PO Q4H PRN PRN (Reason: Pain Score 4-10) Qty: 30 0RF Eliquis 2.5 mg tablet 2.5 mg PO Q12H Qty: 60 0RF acetaminophen [Tylenol Extra Strength] 500 mg tablet 500 mg PO Q4H PRN (Reason: pain) Qty: 10 0RF Primary Care Provider: Mónica Davis Referrals: Toro Valdovinos DPM [Med Staff - Active Staff] - Keep Satish appointment Mónica Davis DO [Primary Care Provider] - Activity Restrictions/Additional Instructions: Right lower extremity DVT studies negative. Maintain nonweightbearing status to right lower extremity. Follow-up with Dr. Valdovinos. Return if worsening symptoms. Disposition Disposition: Home, Self Care Discharge Date/Time: 11/10/22 10:33
== END 2022-11-10 10:33 | disposition home or self-care (01) ==
PROVIDERS: Emergency Provider Emergency Medicine; PCP Family Medicine; Visit Provider Emergency Medicine
DX: M79.661 Pain in right lower leg (principal); G89.18 Other acute postprocedural pain; Z79.01 Long term (current) use of anticoagulants; Z79.84 Long term (current) use of oral hypoglycemic drugs; Z79.899 Other long term (current) drug therapy
CPT/HCPCS: 93971; 99282

== ENCOUNTER → 2023-06-28 | Outpatient (CLI) | payer OTHER, SELFPAY ==
--- NOTE | 2023-06-28 13:23 | CT_ITS ---
CT RIGHT LOWER EXTREMITY WITH 3-D IMAGING CLINICAL INDICATION: R ANKLE SPRAIN. Patient is status post surgical arthrodesis of the talocalcaneal joint with 2 compression screws. TECHNIQUE: Axial CT images of the RIGHT lower extremity was performed without IV contrast material. Coronal and sagittal reformats were provided. RADIATION DOSAGE (If Supplied By Facility): CTDIvol = ( 15.35 ) mGy, DLP = ( 320.44 ) mGycm COMPARISON: Prior study dated: 28/03/2023. FINDINGS: Bones: The patient is status post surgical arthrodesis of the talocalcaneal joint with 2 metallic compression screws. There is a marked degree of joint space narrowing at the talocalcaneal joint. There is evidence of a 5.3 mm cyst in the subchondral region of the dome of the talus. Soft Tissues: Soft tissue swelling. The superficial soft tissues are unremarkable without evidence of edema, hematoma, or foreign body. CT/Extremity Lower without Contra IMPRESSION: Status post surgical arthrodesis of the talocalcaneal joint with 2 metallic screws. There is joint space narrowing and partial fusion. Electronically Signed: Zhou Castrejon MD at 11:18 EDT ,
== END | disposition home or self-care (01) ==
LOC: CT 13:20
PROVIDERS: PCP Family Medicine; Referring Provider Podiatrist; Visit Provider Podiatrist
DX: S86.311A Strain of muscle(s) and tendon(s) of peroneal muscle group at lower leg level, right leg, initial encounter (principal)
CPT/HCPCS: 73700

== ENCOUNTER → 2023-10-17 | Outpatient (CLI) | payer OTHER, SELFPAY ==
--- NOTE | 2023-10-17 08:01 | CT_ITS ---
STUDY: CT RIGHT ANKLE / FOOT REASON FOR EXAM: Female, 48 years old. Pseudarthrosis after fusion or arthrodesis RADIATION DOSAGE (If Supplied By Facility): CTDIvol = ( 15.35 ) mGy, DLP = ( 420.23 ) mGycm TECHNIQUE: Thin section transaxial imaging of the right ankle / foot was obtained, with sagittal and coronal reconstructed images. Individualized dose optimization techniques were used for this CT. COMPARISON: CT right ankle/foot dated 06/28/2023. FINDINGS: Again seen is arthrodesis of the talocalcaneal joint with 2 metallic compression screws. There is unchanged joint space narrowing and partial fusion at the talocalcaneal joint, particularly adjacent to the screws (coronal reformat series 602 images 41-42). There is an unchanged 6 mm cyst in the medial talar dome. Intact talus, calcaneus, and tarsal bones. There is a stable tiny posterior calcaneal tuberosity spur. Normal visualized tibiotalar, talonavicular, calcaneocuboid, tarsal and tarsometatarsal articulations. Normal visualized metatarsi. The soft tissue structures are unremarkable. CT/Extremity Lower without Contra IMPRESSION: Stable talocalcaneal arthrodesis with 2 metallic screws. Unchanged joint space narrowing and partial fusion. Electronically Signed: Jose Luis Vázquez MD at 8:54 EST ,
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
== END | disposition home or self-care (01) ==
LOC: CT 07:59
PROVIDERS: PCP Family Medicine; Referring Provider Podiatrist; Visit Provider Podiatrist
DX: M96.0 Pseudarthrosis after fusion or arthrodesis (principal)
CPT/HCPCS: 73700

== ENCOUNTER → 2023-10-30 | Outpatient (CLI) | payer OTHER, SELFPAY ==
--- NOTE | 2023-10-30 08:00 | MRI_ITS ---
STUDY: MRI RIGHT ANKLE WITHOUT CONTRAST REASON FOR EXAM: Female, 48 years old. Peroneal tendon tear, ankle sprain. Ankle surgery 11/03/2022, still having pain. TECHNIQUE: Standardized fat and water weighted pulse sequences were obtained in all 3 orthogonal planes. COMPARISON: Right ankle CT dated 10/17/2023. FINDINGS: There is minimal posterior tibialis tenosynovitis. Intact posterior tibialis tendon. Normal flexor digitorum longus tendon. Normal flexor hallucis longus tendon. There is peroneus longus and brevis tendinosis. Normal tibialis anterior tendon. Normal extensor hallucis longus tendon. Normal extensor digitorum longus tendons. Normal Achilles tendon and teno-osseous insertion. Normal plantar fascia. Normal plantar calcaneal tubercles. Normal intrinsic muscles of the rearfoot. Normal distal tibiofibular syndesmotic ligamentous complex. Normal lateral ligamentous complex. Normal subtalar ligaments and sinus tarsi. Normal deltoid ligamentous complexes. Normal plantar calcaneonavicular (spring) ligament. There is an osteochondral lesion along the medial talar dome, overall measuring 8 mm AP, 4 mm transverse, and 6 mm in depth (sagittal STIR series 6 images 17-18; coronal T2 series 7 images 22-23). There are calcaneal osteotomy screws extending through the posterior subtalar joint. Normal talonavicular articulation. Normal calcaneocuboid articulation. Normal navicular-cuneiform articulations. There is mild subcutaneous soft tissue edema around the right ankle. MRI/Lower Ext Joint Only (Routine) IMPRESSION: 8 x 4 x 6 mm osteochondral lesion along the medial talar dome. Peroneus longus and brevis tendinosis. Minimal posterior tibialis tenosynovitis. Calcaneal osteotomy screws extending through the posterior subtalar joint. Mild subcutaneous soft tissue edema around the right ankle. Electronically Signed: Jose Luis Vázquez MD at 12:53 EST Reading Location ID and State: [facility] / [place] , Service support ,
== END | disposition home or self-care (01) ==
LOC: MRI 07:35
PROVIDERS: PCP Family Medicine; Referring Provider Podiatrist; Visit Provider Podiatrist
DX: M19.071 Primary osteoarthritis, right ankle and foot (principal); M25.571 Pain in right ankle and joints of right foot; S93.491D Sprain of other ligament of right ankle, subsequent encounter
CPT/HCPCS: 73721

== ENCOUNTER → 2025-04-24 | Outpatient (CLI) | payer OTHER, SELFPAY ==
[2025-04-24 12:15] LABS: Hematocrit 40.7 % (37-47); Hemoglobin 13.4 g/dL (12.0-15.0); Immature Granulocytes Count 0.050 X10^3/uL (0.0-0.0); Mean Corp Hgb Conc 32.9 g/dL (32-36); Mean Corpuscular Volume 88.5 fL (81-99); Mean Platelet Vol. 10.5 fl (6.2-12.0); NRBC Flagged by Analyzer 0 % (0-5); Platelet Count 267 K/mm3 (150-450); RBC Distribution Width CV 12.7 % (11.6-14.6); RBC Distribution Width SD 41.4 fl (35.1-43.9); Red Blood Count 4.60 M/mm3 (4.2-5.4); White Blood Count 7.2 K/mm3 (4.4-11.0)
[2025-04-24 13:14] LABS: AST(SGOT) 24 U/L (<=31); Alanine Aminotransfer ALT/SGPT 35 U/L (<=34); Albumin, Serum 4.2 g/dL (3.5-5.0); Alkaline Phosphatase 70 U/L (35-104); Anion Gap 12 (5-15); BUN 13 mg/dL (4-19); BUN/Creat Ratio 20.3 RATIO (10-20); Calcium,Total 9.8 mg/dL (7.6-11.0); Carbon Dioxide 25.2 mmol/L (21.0-32.0); Chloride 102 mmol/L (98-108); Cholesterol 230 mg/dL (<=200); Free T3 3.0 pg/mL (2.18-3.98); Globulin 2.9 g/dL (2.2-4.2); Glucose 92 mg/dL (70-99); Low Density Lipoprotein Calc. 122 mg/dL; Potassium 4.3 mmol/L (3.3-5.1); Triglycerides 182 mg/dL; Very Low Density Lipoprotein 36 mg/dL (5-40); cholesterol:hdl ratio screen 3.19
--- OUTSIDE RECORDS SUMMARY | 2025-04-24 18:05 | XMS RPT_ITS | CCD ---
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 SOLOMON ([id number]) [facility] ([facility]) [address] [place] [address] 83855 RBC Auto (Urine sed) [#/Area] >20 Abnormal NONE, 1-2, 3-[address] [facility] Comment on above: Performed By: #### 5 3315-8 #### LUZ MARIA SOLOMON ([id number]) [facility] ([facility]) [address] [place] [address] 34233 WBC Auto (Urine sed) [#/Area] 1-5 Normal 1-5, NONE [facility] Comment on above: Performed By: #### 5 3315-8 #### LUZ MARIA SOLOMON ([id number]) [facility] ([facility]) [address] [place] [address] Basic metabolic 2000 panelon 12-18-2023 Anion gap [Moles/Vol] 15 mmol/L 10 - 2 0 mmol/L [facility] Calcium [Mass/Vol] 9.3 mg/dL 8.6 - 10. 3 mg/dL [facility] Chloride [Moles/Vol] 103 mmol/L 98 - 10 7 mmol/L [facility] CO2 [Moles/Vol] 23 mmol/L 21 - 32 mmol/L [facility] Creatinine [Mass/Vol] 0.58 mg/dL 0.50 - 1.05 mg/dL [facility] eGFR - PINF [facility] Comment on above: Calculations of shi mated GFR are performed using the 2020 CKD-EPI Study Refit equation without the race variable for the IDMS-Traceable creatinine methods. https://jasn.asnjournals.org/content//ASN.2020 248973 Glucose [Mass/Vol] 109 mg/dL High 74 - 99 mg/dL [facility] Interpretation and review of laboratory results Abnormal [facility] Potassium [Moles/Vol] 3.7 mmol/L 3.5 - 5.3 mmol/L [facility] Sodium [Moles/Vol] 137 mmol/L 136 - 145 mmol/L [facility] Urea nitrogen [Mass/Vol] 10 mg/dL 6 - 23 mg/dL [facility] Anion gap [Moles/Vol] 15 mmol/L Normal 10-20 [facility] Comment on above: Performed By: #### 2 4321-2 #### LUZ MARIA SOLOMON ([id number]) [facility] ([facility]) [address] [place] [address] Calcium [Mass/Vol] 9.3 mg/dL Normal 8.6-10.[address] [facility] Comment on above: Performed By: #### 2 4321-2 #### LUZ MARIA SOLOMON ([id number]) [facility] ([facility]) [address] [place] [address] Chloride [Moles/Vol] 103 mmol/L Normal 98-[address] [facility] Comment on above: Performed By: #### 2 4321-2 #### LUZ MARIA SOLOMON ([id number]) [facility] ([facility]) [facility] [place] [address] CO2 [Moles/Vol] 23 mmol/L Normal 21-32 [facility] Comment on above: Performed By: #### 2 4321-2 #### LUZ MARIA SOLOMON ([id number]) [facility] ([facility]) [address] [place] [address] 71744 Creatinine [Mass/Vol] 0.58 mg/dL Normal 0.50-1.05 [facility] Comment on above: Performed By: #### 2 432-2 #### LUZ MARIA SOLOMON ([id number]) [facility] ([facility]) [address] [place] [address] 97804 GFR/1.73 sq M.predicted MDRD (S/P/Bld) [Vol rate/Area] mL/min/{1.73_m2} Normal >[address] [facility] Comment on above: Result Comment: Calc ulations of estimated GFR are performed using the 2020 CKD-EPI Study Refit equation without the race variable for the IDMS-Traceable creatinine methods. https://jasn.asnjournals.org/content/early/ASN.2020 518554 Performed By: #### 2 432-2 #### LUZ MARIA SOLOMON ([id number]) [facility] ([facility]) [address] [place] [address] 11645 Glucose [Mass/Vol] 109 mg/dL High 74-[address] [facility] Comment on above: Performed By: #### 2 432-2 #### LUZ MARIA SOLOMON ([id number]) [facility] ([facility]) [address] [place] [address] 53297 Potassium [Moles/Vol] 3.7 mmol/L Normal 3.5-5.3 [facility] Comment on above: Performed By: #### 2 4321-2 #### LUZ MARIA SOLOMON ([id number]) [facility] ([facility]) [address] [place] [address] Sodium [Moles/Vol] 137 mmol/L Normal 136-[address] [facility] Comment on above: Performed By: #### 2 4321-2 #### LUZ MARIA SOLOMON ([id number]) [facility] ([facility]) [address] [place] [address] Urea nitrogen [Mass/Vol] 10 mg/dL Normal 6-[address] [facility] Comment on above: Performed By: #### 2 4321-2 #### LUZ MARIA SOLOMON ([id number]) [facility] ([facility]) [address] [place] [address] 69394 CBC W Auto Differential pane l (Bld)on 12-18-2023 Basophils (Bld) [#/Vol] 0.07 10*3/uL [facility] Basophils/100 WBC (Bld) 0.8 % 0.0 - 2.0 % [facility] Eosinophils (Bld) [#/Vol] 0.24 10*3/uL [facility] Eosinophils/100 WBC (Bld) 2.6 % 0.0 - 6.0 % [facility] Erythrocyte distribution width (RBC) [Ratio] 12.4 % 11.5 - 14.5 % [facility] Hematocrit (Bld) [Volume fraction] 40.6 % 36.0 - 46.0 % [facility] Hemoglobin (Bld) [Mass/Vol] 13.4 g/dL 12.0 - 16.0 g/dL [facility] Immature granulocytes (Bld) [#/Vol] 0.03 10*3/uL [facility] Immature granulocytes/100 WBC (Bld) 0.3 % 0.0 - 0.9 % [facility] Comment on above: Immature Granulocyte Count (IG) includes promyelocytes, myelocytes and metamyelocytes but does not include bands. Percent differential counts (%) should be interpreted in the context of the absolute cell counts (cells/UL). Lymphocytes (Bld) [#/Vol] 2.73 10*3/uL [facility] Lymphocytes/100 WBC (Bld) 29.6 % 13.0 - 44.0 % [facility] MCH (RBC) [Entitic mass] 29.5 pg 26.0 - 34.0 pg [facility] MCHC (RBC) [Mass/Vol] 33.0 g/dL 32.0 - 36.0 g/dL [facility] MCV (RBC) [Entitic vol] 89 fL 80 - 100 fL [facility] Monocytes (Bld) [#/Vol] 0.67 10*3/uL [facility] Monocytes/100 WBC (Bld) 7.3 % 2.0 - 10.0 % [facility] Neutrophils (Bld) [#/Vol] 5.48 10*3/uL [facility] Comment on above: Percent differential counts (%) should be interpreted in the context of the absolute cell counts (cells/uL). Neutrophils/100 WBC (Bld) 59.4 % 40.0 - 80.0 % [facility] Nucleated RBC/100 WBC (Bld) [Ratio] 0.0 % [facility] Platelets (Bld) [#/Vol] 281 10*3/uL [facility] RBC (Bld) [#/Vol] 4.54 10*6/uL [facility] WBC (Bld) [#/Vol] 9.2 10*3/uL [facility] Basophils (Bld) [#/Vol] 0.07 x10*3/uL Normal 0.00-0.[address] [facility] Comment on above: Performed By: #### 5 7021-8 #### LUZ MARIA SOLOMON ([id number]) [facility] ([facility]) [address] [place] [address] 18333 Basophils/100 WBC (Bld) 0.8 % Normal 0.0-2.0 U [facility] Comment on above: Performed By: #### 5 7021-8 #### LUZ MARIA SOLOMON ([id number]) [facility] ([facility]) [facility] [place] [address] Eosinophils (Bld) [#/Vol] 0.24 x10*3/uL Normal 0.00-0.[address] [facility] Comment on above: Performed By: #### 5 7021-8 #### LUZ MARIA SOLOMON ([id number]) [facility] ([facility]) [address] [place] [address] 77013 Eosinophils/100 WBC (Bld) 2.6 % Normal 0.0-6.[address] [facility] Comment on above: Performed By: #### 5 7021-8 #### LUZ MARIA SOLOMON ([id number]) [facility] ([facility]) [address] [place] [address] 26274 Erythrocyte distribution width (RBC) [Ratio] 12.4 % Normal 11.5-14.[address] [facility] Comment on above: Performed By: #### 5 7021-8 #### LUZ MARIA SOLOMON ([id number]) [facility] ([facility]) [address] [place] [address] 90355 Hematocrit (Bld) [Volume fraction] 40.6 % Normal 36.0-46.[address] [facility] Comment on above: Performed By: #### 5 7021-8 #### LUZ MARIA SOLOMON ([id number]) [facility] ([facility]) [address] [place] [address] 83118 Hemoglobin (Bld) [Mass/Vol] 13.4 g/dL Normal 12.0-16.[address] [facility] Comment on above: Performed By: #### 5 7021-8 #### LUZ MARIA SOLOMON ([id number]) [facility] ([facility]) [address] [place] [address] 63235 Immature granulocytes (Bld) [#/Vol] 0.03 x10*3/uL Normal 0.00-0.[address] [facility] Comment on above: Performed By: #### 5 7021-8 #### LUZ MARIA SOLOMON ([id number]) [facility] ([facility]) [address] [place] [address] 45484 Immature granulocytes/100 WBC (Bld) 0.3 % Normal 0.0-0.[address] [facility] Comment on above: Result Comment: Gilma ture Granulocyte Count (IG) includes promyelocytes, myelocytes and metamyelocytes but does not include bands. Percent differential counts (%) should be interpreted in the context of the absolute cell counts (cells/UL). Performed By: #### 5 7021-8 #### LUZ MARIA SOLOMON ([id number]) [facility] ([facility]) [address] [place] [address] 15381 Lymphocytes (Bld) [#/Vol] 2.73 x10*3/uL Normal 1.20-4.[address] [facility] Comment on above: Performed By: #### 5 7021-8 #### LUZ MARIA SOLOMON ([id number]) [facility] ([facility]) [address] [place] [address] 34504 Lymphocytes/100 WBC (Bld) 29.6 % Normal 13.0-44.[address] [facility] Comment on above: Performed By: #### 5 7021-8 #### LUZ MARIA SOLOMON ([id number]) [facility] ([facility]) [address] [place] [address] 02477 MCH (RBC) [Entitic mass] 29.5 pg Normal 26.0-34.[address] [facility] Comment on above: Performed By: #### 5 7021-8 #### LUZ MARIA SOLOMON ([id number]) [facility] ([facility]) [address] [place] [address] 87982 MCHC (RBC) [Mass/Vol] 33.0 g/dL Normal 32.0-36.0 [facility] Comment on above: Performed By: #### 5 7021-8 #### LUZ MARIA SOLOMON ([id number]) [facility] ([facility]) [address] [place] [address] 06679 MCV (RBC) [Entitic vol] 89 fL Normal 80-100 U [facility] Comment on above: Performed By: #### 5 7021-8 #### LUZ MARIA SOLOMON ([id number]) [facility] ([facility]) [address] [place] [address] 21779 Monocytes (Bld) [#/Vol] 0.67 x10*3/uL Normal 0.10-1.[address] [facility] Comment on above: Performed By: #### 5 7021-8 #### LUZ MARIA SOLOMON ([id number]) [facility] ([facility]) [address] [place] [address] 13257 Monocytes/100 WBC (Bld) 7.3 % Normal 2.0-10.0 U [facility] Comment on above: Performed By: #### 5 7021-8 #### LUZ MARIA SOLOMON ([id number]) [facility] ([facility]) [address] [place] [address] 83453 Neutrophils (Bld) [#/Vol] 5.48 x10*3/uL Normal 1.20-7.[address] [facility] Comment on above: Result Comment: Perc ent differential counts (%) should be interpreted in the context of the absolute cell counts (cells/uL). Performed By: #### 5 7021-8 #### LUZ MARIA SOLOMON ([id number]) [facility] ([facility]) [address] [place] [address] 03416 Neutrophils/100 WBC (Bld) 59.4 % Normal 40.0-80.[address] [facility] Comment on above: Performed By: #### 5 7021-8 #### LZU MARIA SOLOMON ([id number]) [facility] ([facility]) [address] [place] [address] 13473 Nucleated RBC/100 WBC (Bld) [Ratio] 0.0 /100 WBCs Normal 0.0-0.[address] [facility] Comment on above: Performed By: #### 5 7021-8 #### LUZ MARIA SOLOMON ([id number]) [facility] ([facility]) [address] [place] [address] 25052 Platelets (Bld) [#/Vol] 281 x10*3/uL Normal 150-[address] [facility] Comment on above: Performed By: #### 5 7021-8 #### LUZ MARIA SOLOMON ([id number]) [facility] ([facility]) [address] [place] [address] 50167 RBC (Bld) [#/Vol] 4.54 x10*6/uL Normal 4.00-5.[address] [facility] Comment on above: Performed By: #### 5 7021-8 #### LUZ MARIA SOLOMON ([id number]) [facility] ([facility]) [address] [place] [address] WBC (Bld) [#/Vol] 9.2 x10*3/uL Normal 4.4-11.3 [facility] Comment on above: Performed By: #### 5 7021-8 #### LUZ MARIA SOLOMON ([id number]) [facility] ([facility]) [address] [place] [address] ECG 12-LEADon 12-18-2023 ECG 12-LEAD Ventricular Rate 72 Atrial Rate 72 P-R Interval 170 QRS Duration 90 Q-T Interval 376 QTC Calculation(Bazett) 411 P [place] 74 R [place] 21 T [place] 52 QRS Count 12 Q Onset 222 P Onset 137 P Offset 191 T Offset 410 QTC Fredericia 399 Diagnosis Normal sinus rhythm Low voltage QRS Cannot rule out Anterior infarct , age undetermined Abnormal ECG No previous ECGs available See ED provider note for full interpretation and clinical correlation Confirmed by Juan Lennon ([id number]) on 12/23/2023 4:47:14 PM Normal [facility] Hepatic function 2000 panelo n 12-18-2023 Albumin BCP dye [Mass/Vol] 4.0 g/dL 3.4 - 5.0 g/dL [facility] ALP [Catalytic activity/Vol] 57 U/L 33 - 110 U/L [facility] ALT With P-5'-P [Catalytic activity/Vol] 31 U/L 7 - 45 U/L [facility] Comment on above: Patients treated wit h Sulfasalazine may generate falsely decreased results for ALT. AST With P-5'-P [Catalytic activity/Vol] 22 U/L 9 - 39 U/L [facility] Bilirubin [Mass/Vol] 0.5 mg/dL 0.0 - 1 .2 mg/dL [facility] Bilirubin.direct [Mass/Vol] 0.1 mg/dL 0.0 - 0.3 mg/dL [facility] Protein [Mass/Vol] 6.8 g/dL 6.4 - 8.2 g/dL [facility] Albumin BCP dye [Mass/Vol] 4.0 g/dL Normal 3.4-5.[address] [facility] Comment on above: Performed By: #### 2 5-3 #### LUZ MARIA SOLOMON ([id number]) [facility] ([facility]) [address] [place] [address] 01532 ALP [Catalytic activity/Vol] 57 U/L Normal 33-[address] [facility] Comment on above: Performed By: #### 2 4324-3 #### LUZ MARIA SOLOMON ([id number]) [facility] ([facility]) [address] [place] [address] 60116 ALT With P-5'-P [Catalytic activity/Vol] 31 U/L Normal 7-[address] [facility] Comment on above: Result Comment: Madiha ents treated with Sulfasalazine may generate falsely decreased results for ALT. Performed By: #### 2 4324-3 #### LUZ MARIA SOLOMON ([id number]) [facility] ([facility]) [address] [place] [address] 03906 AST With P-5'-P [Catalytic activity/Vol] 22 U/L Normal 9-[address] [facility] Comment on above: Performed By: #### 2 4324-3 #### LUZ MARIA SOLOMON ([id number]) [facility] ([facility]) [address] [place] [address] 68412 Bilirubin [Mass/Vol] 0.5 mg/dL Normal 0.0-1.[address] [facility] Comment on above: Performed By: #### 2 4324-3 #### LUZ MARIA SOLOMON ([id number]) [facility] ([facility]) [address] [place] [address] 28156 Bilirubin.direct [Mass/Vol] 0.1 mg/dL Normal 0.0-0.[address] [facility] Comment on above: Performed By: #### 2 4324-3 #### LUZ MARIA SOLOMON ([id number]) [facility] ([facility]) [address] [place] [address] 35913 Protein [Mass/Vol] 6.8 g/dL Normal 6.4-8.[address] [facility] Comment on above: Performed By: #### 2 4325-3 #### LUZ MARIA SOLOMON ([id number]) [facility] ([facility]) [address] [place] [address] 47805 Lipaseon 12-18-2023 Lipase [Catalytic activity/Vol] 26 U/L 9 - U/L [facility] Lipase [Catalytic activity/V ol]on 12-18-2023 Venipuncture immediately after or during the administration of Metamizole may lead to falsely low results. Testing should be performed immediately prior to Metamizole dosing. [facility] No Panel Informationon 12-17 Interpretation and review of laboratory results Normal [facility] Triacylglycerol lipaseon Lipase [Catalytic activity/Vol] 26 U/L Normal [facility] Comment on above: Order Comment: Venip uncture immediately after or during the administration of Metamizole may lead to falsely low results. Testing should be performed immediately prior to Metamizole dosing. Performed By: #### 3 040-3 #### LUZ MARIA SOLOMON ([id number]) [facility] ([facility]) [address] [place] [address] 52330 Tropinin I.cardiac panel Hig h sensitivity methodon 12-18-2023 Interpretation and review of laboratory results Normal [facility] Less than 99th percentile of normal range cutoff- Female and children under 18 years old <14 ng/L; Male <21 ng/L: Negative Repeat testing should be performed if clinically indicated. Female and children under 18 years old 14-50 ng/L; Male 21-50 ng/L: Consistent with possible cardiac damage and possible increased clinical risk. Serial measurements may help to assess extent of myocardial damage. >50 ng/L: Consistent with cardiac damage, increased clinical risk and myocardial infarction. Serial measurements may help assess extent of myocardial damage. NOTE: Children less than 1 year old may have higher baseline troponin levels and results should be interpreted in conjunction with the overall clinical context. NOTE: Troponin I testing is performed using a different testing methodology at [facility] than at other [facility]. Direct result comparisons should only be made within the same method. [facility] Troponin I, High Sensitivity on 12-18-2023 Tropinin I.cardiac panel High sensitivity method ng/L 0 - 13 ng/L [facility] Troponin I.cardiac panelon 0 12-18-2023 Tropinin I.cardiac panel High sensitivity method <3 Normal 0-[address] [facility] Comment on above: Order Comment: Less than 99th percentile of normal range cutoff- Female and children under 18 years old <14 ng/L; Male <21 ng/L: Negative Repeat testing should be performed if clinically indicated. Female and children under 18 years old 14-50 ng/L; Male 21-50 ng/L: Consistent with possible cardiac damage and possible increased clinical risk. Serial measurements may help to assess extent of myocardial damage. >50 ng/L: Consistent with cardiac damage, increased clinical risk and myocardial infarction. Serial measurements may help assess extent of myocardial damage. NOTE: Children less than 1 year old may have higher baseline troponin levels and results should be interpreted in conjunction with the overall clinical context. NOTE: Troponin I testing is performed using a different testing methodology at [facility] than at other [facility]. Direct result comparisons should only be made within the same method. Performed By: #### [id number] #### LOERA JUANITO ([id number]) [facility] ([facility]) [address] [place] [address] XR CHEST 1 VIEWon 12-18-2023 XR CHEST 1 VIEW Interpreted By: Tremaine Mehta, STUDY: XR CHEST 1 VIEW; 12/18/2023 3:58 am INDICATION: Signs/Symptoms:Chest pain. COMPARISON: Chest radiograph 07/19/2022 ACCESSION NUMBER(S): [id number] ORDERING CLINICIAN: CECE MILLER FINDINGS: CARDIOMEDIASTINAL SILHOUETTE: Cardiomediastinal silhouette is normal in size and configuration. LUNGS: No pulmonary consolidation, pleural effusion or pneumothorax. ABDOMEN: No remarkable upper abdominal findings. BONES: No acute osseous abnormality. IMPRESSION: No radiographic evidence of acute cardiopulmonary pathology. MACRO: None. Signed by: Tremaine Mehta 12/18/2023 4:15 AM Dictation workstation: [id number] Normal [facility] XR Chest Single viewon 12-17 No radiographic evidence of acute cardiopulmonary pathology. MACRO: None. Signed by: Tremaine Mehta 12/18/2023 4:15 AM Dictation workstation: [id number] MMODAL Interpreted By: Tremaine Mehta, STUDY: XR CHEST 1 VIEW; 12/18/2023 3:58 am INDICATION: Signs/Symptoms:Chest pain. COMPARISON: Chest radiograph 07/19/2022 ACCESSION NUMBER(S): [id number] ORDERING CLINICIAN: CECE MILLER FINDINGS: CARDIOMEDIASTINAL SILHOUETTE: Cardiomediastinal silhouette is normal in size and configuration. LUNGS: No pulmonary consolidation, pleural effusion or pneumothorax. ABDOMEN: No remarkable upper abdominal findings. BONES: No acute osseous abnormality. [facility] Tremaine Mehta MD - 12/18/2023 Interpreted By: Tremaine Mehta, STUDY: XR CHEST 1 VIEW; 12/18/2023 3:58 am INDICATION: Signs/Symptoms:Chest pain. COMPARISON: Chest radiograph 07/19/2022 ACCESSION NUMBER(S): [id number] ORDERING CLINICIAN: CECE MILLER FINDINGS: CARDIOMEDIASTINAL SILHOUETTE: Cardiomediastinal silhouette is normal in size and configuration. LUNGS: No pulmonary consolidation, pleural effusion or pneumothorax. ABDOMEN: No remarkable upper abdominal findings. BONES: No acute osseous abnormality. IMPRESSION: No radiographic evidence of acute cardiopulmonary pathology. MACRO: None. Signed by: Tremaine Mehta 12/18/2023 4:15 AM Dictation workstation: [id number] [facility] Work Phone: Radiology Study observation (narrative) [facility] Work Phone: XR Chest Single viewOrdered By: Tremaine Mehta on 12-18-2023 [facility] Work Phone: PT Progress Noteon 3 PT Progress Note Therapy Diagnosis Assessed Right ankle pain (719.47) (M25.571) Plan Goals: Goals set and discussed today. 1. Independent HEP to allow for 50% reduction in max ADL C/C sx ( 12/16) 2-3wks 03/18 max sx within the last 5 days; 03/31/23; NOT MET; 2/10 max sx within the last 5 days; 04/14/23; MET 2. Survey score improvement from 37/80 to 50/80 (LEFS) 3-4wks 44/80 as of 03/31/23; PARTIALLY MET 3. Strength increase to allow for improved ADL stair (from gr4bto gr4+ PF/DF) 3-4wks notes better ADL bharat (feels like normal0; 04/14/23; PARTIALLY MET 4. ROM increase to allow for improved ADL STS, car transfers, gait on flats (from 10 to 15 active DF) 3-4wks 12 active DF today; 04/14/23; PARTIALLY MET Planned interventions include: cryotherapy, education/instructio n, electrical stimulation, gait training, home program, hot pack, kinesiotaping, manual therapy, self care/home management, therapeutic exercises and IASTM/cupping . Frequency and duration: 2 time(s) a week, for 4 weeks, for 8 visits. Potential to achieve rehab goals is good the patient agrees to recheck in 10 days PRN. Assessment Patient identity confirmed today with name/. added to HEP and given handout; needed to reduce crossover step distance due to ankle discomfort. Adult Risk Screening There are no spiritual/cultural practices/values/nee ds that are important to know Initial Fall Risk Screening: NIA has not fallen in the last 6 months. NIA does not have a fear of falling. She does not need assistance with sitting, standing or walking. Does not need assistance walking in her home. She does not need assistance in an unfamiliar setting. The patient is not using an assistive device. Please identify location of pain: R ankle. Living Will. Living Will: No living will on file. Patient Declined. Healthcare POA: No healthcare proxy on file. Patient Declined. Declaration of Mental Health Treatment: No mental health treatment on file. Patient Declined. Insurance Insurance reviewed Visit number: 9 [facility] Evaluating therapist Jean De Los Santos PT. M25.561 Subjective Patient reports:. 10/18 discomfort right now. Precautions: none. Fall Risk: none S/P R ankle fusion; peroneal/ATF repair done 11/03/22. Treatment Time in clinic started at 7:03 am Time in clinic ended at 7:35 am Total time in clinic is 32 minutes. Total timed code time is 30 minutes. Therapeutic exercise (91385): timed minutes 30, units 2 . reassessment today BHR/BTR 2x10 ea [id number] lateral [id number] heel/toe walk- 2x10 ea fwd lunge ea lead x10 ea lateral lunge 2x10 lateral step -overs x15 4 step tandem walk 4x20' cariocas 4x20 ft NOT TODAY seated DF PRE x20 (manual today) DF strap stretch 5 x 3 count hold towel crunch x30 wall slide DF ROM x15 SLS 2x20' Recumbent bike x5' lvl 5 (P, resistance) BAPs board DF/PF #2 x20; CW/CCW/Side to side #1 x20 Slantboard 2x1' (P, reps) fwd lunge onto BOSU: 2x10 Lateral lunge on BOSU R 2x10 Step ups 6 step 2x10 R leading Fwd/Lateral (P, reps) seated PF with heavy BOSU band: 2x10 X Seated arch lifts 2x10 R X Seated toe abduction 2x10 R X Seated Big toe extension x30 R (P, reps) Seated 4 little toe extension x30 R (P, reps) open to closed chain DF/PF ROM and PRE.-A gait/balance activities PRN.-A. Provided today: a personalized home program (Scanned) . HEP handout. 'Scores and Scales' Signatures Electronically signed by : Bernardo De Los Santos PT; Apr 14 2023 8:14AM EST (Author) Normal [employer] PT Progress Noteon 3 PT Progress Note Therapy Diagnosis Assessed Right ankle pain (719.47) (M25.571) Plan Goals: Goals set and discussed today. 1. Independent HEP to allow for 50% reduction in max ADL C/C sx ( 10) 2-3wks 610 max sx within the last 5 days; 03/31/23; NOT MET 2. Survey score improvement from 37/80 to 50/80 (LEFS) 3-4wks 44/80 as of 03/31/23; PARTIALLY MET 3. Strength increase to allow for improved ADL stair (from gr4bto gr4+ PF/DF) 3-4wks NT 4. ROM increase to allow for improved ADL STS, car transfers, gait on flats (from 10 to 15 active DF) 3-4wks NT Planned interventions include: cryotherapy, education/instructio n, electrical stimulation, gait training, home program, hot pack, kinesiotaping, manual therapy, self care/home management, therapeutic exercises and IASTM/cupping . Frequency and duration: 2 time(s) a week, for 4 weeks, for 8 visits. Potential to achieve rehab goals is good the patient expressed a desire to continue with HEP emphasis (the Dr inferred this also); will continue at 1x/wk x 3wks for HEP progression. Assessment Patient identity confirmed today with name/. see goals; added to HEP today; still difficulty with lunge (L lead) and also difficulty with heel/toe walk. Adult Risk Screening There are no spiritual/cultural practices/values/nee ds that are important to know Initial Fall Risk Screening: NIA has not fallen in the last 6 months. NIA does not have a fear of falling. She does not need assistance with sitting, standing or walking. Does not need assistance walking in her home. She does not need assistance in an unfamiliar setting. The patient is not using an assistive device. Please identify location of pain: R ankle. Living Will. Living Will: No living will on file. Patient Declined. Healthcare POA: No healthcare proxy on file. Patient Declined. Declaration of Mental Health Treatment: No mental health treatment on file. Patient Declined. Insurance Insurance reviewed Visit number: 8 [facility] Evaluating therapist Jean De Los Santos PT. M25.561 Subjective Patient reports:. 10/18 pain now. Precautions: none. Fall Risk: none S/P R ankle fusion; peroneal/ATF repair done 11/03/22. Treatment Time in clinic started at 7:33 am Time in clinic ended at 8:00 am Total time in clinic is 27 minutes. Therapeutic exercise (38961): timed minutes 12, units 1 . reassessment today BHR/BTR 2x10 ea [id number] N lateral [id number] N heel/toe walk- 2x10 ea N fwd lunge ea lead x10 ea lateral lunge 2x10-A NOT TODAY seated DF PRE x20 (manual today) DF strap stretch 5 x 3 count hold towel crunch x30 wall slide DF ROM x15 SLS 2x20' Recumbent bike x5' lvl 5 (P, resistance) BAPs board DF/PF #2 x20; CW/CCW/Side to side #1 x20 Slantboard 2x1' (P, reps) fwd lunge onto BOSU: 2x10 Lateral lunge on BOSU R 2x10 Step ups 6 step 2x10 R leading Fwd/Lateral (P, reps) seated PF with heavy BOSU band: 2x10 X Seated arch lifts 2x10 R X Seated toe abduction 2x10 R X Seated Big toe extension x30 R (P, reps) Seated 4 little toe extension x30 R (P, reps) open to closed chain DF/PF ROM and PRE.-A gait/balance activities PRN.-A. Provided today: a personalized home program (Scanned) . HEP handout. 'Scores and Scales' Signatures Electronically signed by : Bernardo De Los Santos, PT; Mar 31 2023 8:00AM EST (Author) Normal [facility] [employer] PT Progress Noteon 3 PT Progress Note Therapy Diagnosis Assessed Right ankle pain (719.47) (M25.571) Plan Goals: Goals set and discussed today. 1. Independent HEP to allow for 50% reduction in max ADL C/C sx ( 3/10) 2-3wks 2. Survey score improvement from 37/80 to 50/80 (LEFS) 3-4wks 3. Strength increase to allow for improved ADL stair (from gr4bto gr4+ PF/DF) 3-4wks 4. ROM increase to allow for improved ADL STS, car transfers, gait on flats (from 10 to 15 active DF) 3-4wks Planned interventions include: cryotherapy, education/instructio n, electrical stimulation, gait training, home program, hot pack, kinesiotaping, manual therapy, self care/home management, therapeutic exercises and IASTM/cupping . Frequency and duration: 2 time(s) a week, for 4 weeks, for 8 visits. Potential to achieve rehab goals is good the patient expressed a desire to continue with HEP emphasis (the Dr inferred this also); will continue at 1x/wk x 1 mth for HEP progression. Assessment Patient identity confirmed today with name/. clinic ex done without brace today; added to and modified HEP for HEP emphasis; difficulty with lunges and SLS today. Adult Risk Screening There are no spiritual/cultural practices/values/nee ds that are important to know Initial Fall Risk Screening: NIA has not fallen in the last 6 months. NIA does not have a fear of falling. She does not need assistance with sitting, standing or walking. Does not need assistance walking in her home. She does not need assistance in an unfamiliar setting. The patient is not using an assistive device. Please identify location of pain: R ankle. Living Will. Living Will: No living will on file. Patient Declined. Healthcare POA: No healthcare proxy on file. Patient Declined. Declaration of Mental Health Treatment: No mental health treatment on file. Patient Declined. Insurance Insurance reviewed Visit number: 7 [facility] Evaluating therapist Jean De Los Santos PT. M25.561 Subjective Patient reports:. 3/10 pain right now. I had to walk up and down stairs without my brace last night. The Rr said things look good. He gave me 6 mths to near full recovery. He also said to wean from brace over the next mth. Precautions: none. Fall Risk: none S/P R ankle fusion; peroneal/ATF repair done 11/03/22. Treatment Time in clinic started at 7:04 am Time in clinic ended at 7:45 am Total time in clinic is 41 minutes. Total timed code time is 40 minutes. Therapeutic exercise (20294): timed minutes 40, units 3 . seated BHR/BTR x20 seated DF PRE x20 (manual today) DF strap stretch 5 x 3 count hold towel crunch x30 wall slide DF ROM x15 BHR 2x10 fwd lunge ea lead x10 ea SLS 2x20' step-up-A lateral step-up-A heel/toe walk-A NOT TODAY Recumbent bike x5' lvl 5 (P, resistance) BAPs board DF/PF #2 x20; CW/CCW/Side to side #1 x20 Slantboard 2x1' (P, reps) fwd lunge onto BOSU: 2x10 Lateral lunge on BOSU R 2x10 Step ups 6 step 2x10 R leading Fwd/Lateral (P, reps) seated PF with heavy BOSU band: 2x10 X Seated arch lifts 2x10 R X Seated toe abduction 2x10 R X Seated Big toe extension x30 R (P, reps) Seated 4 little toe extension x30 R (P, reps) open to closed chain DF/PF ROM and PRE.-A gait/balance activities PRN.-A. Provided today: a personalized home program (Scanned) . HEP handout. 'Scores and Scales' Signatures Electronically signed by : Bernardo De Los Santos, PT; Mar 24 2023 7:48AM EST (Author) Normal [facility] PT Progress Noteon 3 PT Progress Note Therapy Diagnosis Assessed Right ankle pain (719.47) (M25.571) Plan Goals: Goals set and discussed today. 1. Independent HEP to allow for 50% reduction in max ADL C/C sx ( 12/16) 2-3wks 2. Survey score improvement from 37/80 to 50/80 (LEFS) 3-4wks 3. Strength increase to allow for improved ADL stair (from 4. ROM increase to allow for improved ADL STS, car transfers, gait on flats (from Planned interventions include: cryotherapy, education/instructio n, electrical stimulation, gait training, home program, hot pack, kinesiotaping, manual therapy, self care/home management, therapeutic exercises and IASTM/cupping . Frequency and duration: 2 time(s) a week, for 4 weeks, for 8 visits. Potential to achieve rehab goals is good will continue to work on progressing toward plan of care as tolerated to be able to improve strength and ROM to be able to ascend/descend stairs with reciprocal pattern. Assessment Patient identified by name and Patient appropriately challenged. Patient demo's difficulty with SLS this date requiring intermittent fingertip touching throughout. Patient tolerates session with fatigue noted at end of session. Adult Risk Screening There are no spiritual/cultural practices/values/nee ds that are important to know Initial Fall Risk Screening: NIA has not fallen in the last 6 months. NIA does not have a fear of falling. She does not need assistance with sitting, standing or walking. Does not need assistance walking in her home. She does not need assistance in an unfamiliar setting. The patient is not using an assistive device. Please identify location of pain: R ankle. Living Will. Living Will: No living will on file. Patient Declined. Healthcare POA: No healthcare proxy on file. Patient Declined. Declaration of Mental Health Treatment: No mental health treatment on file. Patient Declined. Insurance Insurance reviewed Visit number: 6 [facility] Evaluating therapist Jean De Los Santos PT. M20.572 Subjective Patient reports:. Patient states that she went up and down a lot of stairs yesterday. States that she tried 2 different ways with the brace and without the brace. States that going down the stairs with brace on was easier than going down with the brace off. States that with the reciprocal pattern she was able to do that with the brace on, but states that she had to do a step to gait pattern with the brace off. Precautions: none. Fall Risk: none S/P R ankle fusion; peroneal/ATF repair done 11/03/22. Treatment Time in clinic started at 704 am Time in clinic ended at 745 am Total time in clinic is 41 minutes. Total timed code time is 38 minutes. Therapeutic exercise (47814): timed minutes 38, units 3 . Recumbent bike x5' lvl 5 (P, resistance) BAPs board DF/PF #2 x20; CW/CCW/Side to side #1 x20 Slantboard 2x1' (P, reps) wall slide DF ROM x10 fwd lunge onto BOSU: 2x10 Lateral lunge on BOSU R 2x10 (N) Step ups 6 step 2x10 R leading Fwd/Lateral (P, reps) SLS: floor, 3x30, touch for balance as needed seated DF PRE 2x10 blue TBand seated PF with heavy BOSU band: 2x10 Seated towel scrunches 2x10 R Seated arch lifts 2x10 R Seated toe abduction 2x10 R Seated Big toe extension x30 R (P, reps) Seated 4 little toe extension x30 R (P, reps) DF strap stretch 10 x 10 hold (X, not today) open to closed chain DF/PF ROM and PRE.-A gait/balance activities PRN.-A. Provided today: a personalized home program (Scanned) . HEP handout. 'Scores and Scales' Signatures Electronically signed by : Lupe Zayas [employer]; Mar 20 2023 8:12AM EST (Author) Electronically signed by : Bernardo De Los Santos PT; Mar 21 2023 10:21AM EST [facility] PT Progress Noteon 3 PT Progress Note Therapy Diagnosis Assessed Right ankle pain (719.47) (M25.577) Plan Goals: Goals set and discussed today. 1. Independent HEP to allow for 50% reduction in max ADL C/C sx ( 12/16) 2-3wks 2. Survey score improvement from 37/80 to 50/80 (LEFS) 3-4wks 3. Strength increase to allow for improved ADL stair (from 4. ROM increase to allow for improved ADL STS, car transfers, gait on flats (from Planned interventions include: cryotherapy, education/instructio n, electrical stimulation, gait training, home program, hot pack, kinesiotaping, manual therapy, self care/home management, therapeutic exercises and IASTM/cupping . Frequency and duration: 2 time(s) a week, for 4 weeks, for 8 visits. Potential to achieve rehab goals is good will continue to work on progressing toward plan of care as tolerated to be able to improve strength and ROM in R ankle musculature to be able to tolerate prolonged ambulation. Assessment Patient identified by name and Patient appropriately challenged. Ramirezky's improvements in foot intrinsics strength, however is still limited in R ankle ROM. Does demo slight difficulty with balance this date requiring intermittent fingertip touching. Demo's no increased symptoms throughout session. Education provided for symptom management at home with patient zack'g understanding. Adult Risk Screening There are no spiritual/cultural practices/values/nee ds that are important to know Initial Fall Risk Screening: NIA has not fallen in the last 6 months. NIA does not have a fear of falling. She does not need assistance with sitting, standing or walking. Does not need assistance walking in her home. She does not need assistance in an unfamiliar setting. The patient is not using an assistive device. Pain Scale: On a scale of 0 to 10, the patient rates the pain at 2. Please identify location of pain: R ankle. Living Will. Living Will: No living will on file. Patient Declined. Healthcare POA: No healthcare proxy on file. Patient Declined. Declaration of Mental Health Treatment: No mental health treatment on file. Patient Declined. Insurance Insurance reviewed Visit number: 5 [facility] Evaluating therapist Jean De Los Santos PT. M22.863 Subjective Patient reports:. Patient states that she has started incorporating more balancing on her RLE and states that over the weekend when she wasn't really walking she had pain. States that's the only thing she can think of that would cause the increased pain. Precautions: none. Fall Risk: none S/P R ankle fusion; peroneal/ATF repair done 11/03/22. Treatment Time in clinic started at 705 am Time in clinic ended at 745 am Total time in clinic is 40 minutes. Total timed code time is 38 minutes. Therapeutic exercise (76315): timed minutes 38, units 3 . Recumbent bike x5' lvl 3 (P, resistance) BAPs board DF/PF #2 x20; CW/CCW/Side to side #1 x20 Slantboard 2x1' (P, reps) wall slide DF ROM x10 fwd lunge onto BOSU: 2x10 Lateral lunge on BOSU R 2x10 (N) Step ups 6 step 2x10 R leading Fwd/Lateral (P, reps) SLS: floor, 3x30, touch for balance as needed seated DF PRE 2x10 blue TBand seated PF with heavy BOSU band: 2x10 Seated towel scrunches 2x10 R Seated arch lifts 2x10 R Seated toe abduction 2x10 R Seated Big toe extension x30 R (P, reps) Seated 4 little toe extension x30 R (P, reps) DF strap stretch 10 x 10 hold (X, not today) open to closed chain DF/PF ROM and PRE.-A gait/balance activities PRN.-A. Provided today: a personalized home program (Scanned) . HEP handout. 'Scores and Scales' Signatures Electronically signed by : Lupe Zayas [employer]; Mar 13 2023 8:44AM EST (Author) Electronically signed by : Bernardo De Los Santos PT; Mar 13 2023 8:59AM EST [facility] [employer] PT Progress Noteon 3 PT Progress Note Therapy Diagnosis Assessed Right ankle pain (719.47) (M25.571) Plan Goals: Goals set and discussed today. 1. Independent HEP to allow for 50% reduction in max ADL C/C sx ( 12/16) 2-3wks 2. Survey score improvement from 37/80 to 50/80 (LEFS) 3-4wks 3. Strength increase to allow for improved ADL stair (from 4. ROM increase to allow for improved ADL STS, car transfers, gait on flats (from Planned interventions include: cryotherapy, education/instructio n, electrical stimulation, gait training, home program, hot pack, kinesiotaping, manual therapy, self care/home management, therapeutic exercises and IASTM/cupping . Frequency and duration: 2 time(s) a week, for 4 weeks, for 8 visits. Potential to achieve rehab goals is good will continue to work on progressing toward plan of care as tolerated to be able to improve R ankle strength to be able to tolerate prolonged ambulation. Assessment Patient identity confirmed today with name/. used #1 ball for baps circles due to patient discomfort; added to HEP and given handout; concentrated on closed chain activities with shorter session today. Response to treatment: no change in pain, improved strength, improved flexibility and improved knowledge and understanding of condition. Adult Risk Screening There are no spiritual/cultural practices/values/nee ds that are important to know Initial Fall Risk Screening: NIA has not fallen in the last 6 months. NIA does not have a fear of falling. She does not need assistance with sitting, standing or walking. Does not need assistance walking in her home. She does not need assistance in an unfamiliar setting. The patient is not using an assistive device. Please identify location of pain: R ankle. Living Will. Living Will: No living will on file. Patient Declined. Healthcare POA: No healthcare proxy on file. Patient Declined. Declaration of Mental Health Treatment: No mental health treatment on file. Patient Declined. Insurance Insurance reviewed Visit number: 4 [facility] Evaluating therapist Jean De Los Santos PT. M25.561 Subjective Patient reports:. Feeling better-2/10 pain now. Precautions: none. Fall Risk: none S/P R ankle fusion; peroneal/ATF repair done 11/03/22. Treatment Time in clinic started at 7:02 am Time in clinic ended at 7:32 am Total time in clinic is 30 minutes. Total timed code time is 27 minutes. Therapeutic exercise (96015): timed minutes 27, units 2 . Recumbent bike x5' BAPs board DF/PF #2 x20; CW/CCW #1 x20 Slantboard 1' wall slide DF ROM x10 fwd lunge onto BOSU: 2x10 Step ups 6 step x15 R leading Fwd/Lateral SLS: floor, 3x30, touch for balance as needed NOT TODAY seated DF PRE 2x10 blue TBand seated PF with heavy BOSU band: 2x10 [P] Seated towel scrunches 2x10 R (N) Seated arch lifts 2x10 R (N) Seated toe abduction 2x10 R (N) Seated Big toe extension 2x10 R (N) Seated 4 little toe extension 2x10 R (N) DF strap stretch 10 x 10 hold (X, not today) open to closed chain DF/PF ROM and PRE.-A gait/balance activities PRN.-A. Provided today: a personalized home program (Scanned) . HEP handout. 'Scores and Scales' Signatures Electronically signed by : Bernardo De Los Santos, PT; Mar 10 2023 7:35AM EST (Author) Normal [employer] PT Progress Noteon 3 PT Progress Note Therapy Diagnosis Assessed Right ankle pain (719.47) (M25.571) Plan Goals: Goals set and discussed today. 1. Independent HEP to allow for 50% reduction in max ADL C/C sx ( 10) 2-3wks 2. Survey score improvement from 37/80 to 50/80 (LEFS) 3-4wks 3. Strength increase to allow for improved ADL stair (from 4. ROM increase to allow for improved ADL STS, car transfers, gait on flats (from Planned interventions include: cryotherapy, education/instructio n, electrical stimulation, gait training, home program, hot pack, kinesiotaping, manual therapy, self care/home management, therapeutic exercises and IASTM/cupping . Frequency and duration: 2 time(s) a week, for 4 weeks, for 8 visits. Potential to achieve rehab goals is good will continue to work on progressing toward plan of care as tolerated to be able to improve R ankle strength to be able to tolerate prolonged ambulation. Assessment Advancing ther-ex as indicated to progress functional strength for ankle stability and balance. Patient voices compliance with current HEP. She denies increase in ankle pain or edema during/following treatment. Response to treatment: no change in pain, improved strength, improved flexibility and improved knowledge and understanding of condition. Adult Risk Screening There are no spiritual/cultural practices/values/nee ds that are important to know Initial Fall Risk Screening: NIA has not fallen in the last 6 months. NIA does not have a fear of falling. She does not need assistance with sitting, standing or walking. Does not need assistance walking in her home. She does not need assistance in an unfamiliar setting. The patient is not using an assistive device. Please identify location of pain: R ankle. Living Will. Living Will: No living will on file. Patient Declined. Healthcare POA: No healthcare proxy on file. Patient Declined. Declaration of Mental Health Treatment: No mental health treatment on file. Patient Declined. Insurance Insurance reviewed Visit number: 3 [facility] Evaluating therapist Jean De Los Santos PT. M25.561 Subjective Patient reports:. Getting better since starting therapy but still a lot of weakness in my legs. Precautions: none. Fall Risk: none S/P R ankle fusion; peroneal/ATF repair done 11/03/22. Treatment Time in clinic started at 0703 Time in clinic ended at 0744 Total time in clinic is 41 minutes. Total timed code time is 39 minutes. Therapeutic exercise (95653): timed minutes 39, units 3 . Recumbent bike x5' Slantboard 2x1' Step ups 6 step x15 R leading Fwd/Lateral SLS: floor, 3x30, touch for balance as needed [N] fwd lunge onto BOSU: 2x10 [N] BAPs board DF/PF/Inversion/Ever mini/CW/CCW 2x10 R (N) seated DF PRE 2x10 blue TBand seated PF with heavy BOSU band: 2x10 [P] Seated towel scrunches 2x10 R (N) Seated arch lifts 2x10 R (N) Seated toe abduction 2x10 R (N) Seated Big toe extension 2x10 R (N) Seated 4 little toe extension 2x10 R (N) DF strap stretch 10 x 10 hold (X, not today) open to closed chain DF/PF ROM and PRE.-A gait/balance activities PRN.-A. Provided today: a personalized home program (Scanned) . Access Code: [email or web address] URL: [email or web address] Date: 03/03/2023 Prepared by: Lupe Zayas Exercises - Towel Scrunches - 1 x daily - 7 x weekly - 3 sets - 10 reps - Seated Great Toe Extension - 1 x daily - 7 x weekly - 3 sets - 10 reps - Seated Arch Lifts - 1 x daily - 7 x weekly - 3 sets - 10 reps - Seated Lesser Toes Extension - 1 x daily - 7 x weekly - 3 sets - 10 reps. 'Scores and Scales' Signatures Electronically signed by : Jared Hernadez ACID SPLICER; Mar 08 2023 9:48AM EST (Author) Electronically signed by : Bernardo De Los Santos, PT; Mar 08 2023 11:53AM EST Normal [facility] PT Progress Noteon 3 PT Progress Note Therapy Diagnosis Assessed Right ankle pain (719.47) (M25.571) Plan Goals: Goals set and discussed today. 1. Independent HEP to allow for 50% reduction in max ADL C/C sx ( 12/16) 2-3wks 2. Survey score improvement from 37/80 to 50/80 (LEFS) 3-4wks 3. Strength increase to allow for improved ADL stair (from 4. ROM increase to allow for improved ADL STS, car transfers, gait on flats (from Planned interventions include: cryotherapy, education/instructio n, electrical stimulation, gait training, home program, hot pack, kinesiotaping, manual therapy, self care/home management, therapeutic exercises and IASTM/cupping . Frequency and duration: 2 time(s) a week, for 4 weeks, for 8 visits. Potential to achieve rehab goals is good will continue to work on progressing toward plan of care as tolerated to be able to improve R ankle strength to be able to tolerate prolonged ambulation. Assessment Patient identified by name and Patient appropriately challenged. Patient able to tolerate stretching and PRE's with no increased symptoms, but does demo difficulty with lateral step ups along lateral ankle this date, but no increased pain. HEP updated and reviewed. Adult Risk Screening There are no spiritual/cultural practices/values/nee ds that are important to know Initial Fall Risk Screening: NIA has not fallen in the last 6 months. NIA does not have a fear of falling. She does not need assistance with sitting, standing or walking. Does not need assistance walking in her home. She does not need assistance in an unfamiliar setting. The patient is not using an assistive device. Please identify location of pain: R ankle. Living Will. Living Will: No living will on file. Patient Declined. Healthcare POA: No healthcare proxy on file. Patient Declined. Declaration of Mental Health Treatment: No mental health treatment on file. Patient Declined. Insurance Insurance reviewed Visit number: 2 [facility] Evaluating therapist Jean De Los Santos PT. M25.561 Subjective Patient reports:. Patient states that she hasn't taken any pain medication this morning prior to treatment. States that she's having a little more pain this morning since not taking her medication. Precautions: none. Fall Risk: none S/P R ankle fusion; peroneal/ATF repair done 11/03/22. Treatment Time in clinic started at 702 am Time in clinic ended at 743 pm Total time in clinic is 41 minutes. Total timed code time is 39 minutes. Therapeutic exercise (65072): timed minutes 39, units 3 . Recumbent bike x5' (N) Slantboard 2x1' (N) Step ups 6 step x10 R leading Fwd/Lateral (N) BAPs board DF/PF/Inversion/Ever mini/CW/CCW 2x10 R (N) seated PF/DF PRE 2x10 ea Green TBand Seated towel scrunches 2x10 R (N) Seated arch lifts 2x10 R (N) Seated toe abduction 2x10 R (N) Seated Big toe extension 2x10 R (N) Seated 4 little toe extension 2x10 R (N) DF strap stretch 10 x 10 hold (X, not today) open to closed chain DF/PF ROM and PRE.-A gait/balance activities PRN.-A. Provided today: a personalized home program (Scanned) . Access Code: [email or web address] URL: [email or web address] Date: 03/03/2023 Prepared by: Lupe Zayas Exercises - Towel Scrunches - 1 x daily - 7 x weekly - 3 sets - 10 reps - Seated Great Toe Extension - 1 x daily - 7 x weekly - 3 sets - 10 reps - Seated Arch Lifts - 1 x daily - 7 x weekly - 3 sets - 10 reps - Seated Lesser Toes Extension - 1 x daily - 7 x weekly - 3 sets - 10 reps. 'Scores and Scales' Signatures Electronically signed by : Lupe Zayas ACID SPLICER; Mar 03 2023 7:52AM EST (Author) Electronically signed by : Bernardo De Los Santos PT; Mar 03 2023 10:21AM EST Normal [facility] PT Initial Evaluationon 02-07 PT Initial Evaluation Therapy Diagnosis Assessed Right ankle pain (719.47) (M25.571) Plan of Care Goals: Goals set and discussed today. 1. Independent HEP to allow for 50% reduction in max ADL C/C sx ( 12/16) 2-3wks 2. Survey score improvement from 37/80 to 50/80 (LEFS) 3-4wks 3. Strength increase to allow for improved ADL stair (from gr4 to gr4+ R ankle) 3-4wks 4. ROM increase to allow for improved ADL STS, car transfers, gait on flats (from 10 to 15 deg active DF) 3-4wks Planned interventions include: cryotherapy, education/instructio n, electrical stimulation, gait training, home program, hot pack, kinesiotaping, manual therapy, self care/home management, therapeutic exercises and IASTM/cupping . Frequency and duration: 2 time(s) a week, for 4 weeks, for 8 visits. Potential to achieve rehab goals is good Plan of care was developed with input and agreement by the patient. Assessment S/P R ankle fusion; peroneal/ATF repair done 11/03/22. Per patient the Dr stated he expects full PF/DF ROM but limited inv/ev (due to fusion). Physical findings include reduced DF ROM and PF/DF weakness. Will continue with open to closed chain DF/PF ROM and PRE. Also perform gait/balance activities PRN. There was mild soreness with PF PRE today. Clinical Presentation: Stable and/or uncomplicated characteristics. Level of Complexity: low Problem List: activity limitations, ADLs/IADLs/self care skills, decreased functional level, decreased knowledge of HEP, decreased knowledge of precautions, gait/locomotion, pain, range of motion/joint mobility, strength and transfers. Reason For Visit Initial Evaluation . S/P R ankle fusion; peroneal/ATF repair. Referred by: Aruna Adult Risk Screening There are no spiritual/cultural practices/values/nee ds that are important to know Initial Fall Risk Screening: NIA has not fallen in the last 6 months. NIA does not have a fear of falling. She does not need assistance with sitting, standing or walking. Does not need assistance walking in her home. She does not need assistance in an unfamiliar setting. The patient is not using an assistive device. Pain Scale: On a scale of 0 to 10, the patient rates the pain at 3. Please identify location of pain: R ankle. Living Will. Living Will: No living will on file. Patient Declined. Healthcare POA: No healthcare proxy on file. Patient Declined. Declaration of Mental Health Treatment: No mental health treatment on file. Patient Declined. Insurance Insurance reviewed Visit number: 1 [facility] Evaluating therapist Jean De Los Santos PT. M25.561 Subjective Current Episode of Functional Impairment and/or Pain Date of surgery: 11/03/22 Mechanism of Injury:. S/P R ankle fusion; peroneal/ATF repair. Medical Screening: Reviewed medical history form with patient and medical screening assessed. Current Medical Management:. DOS 11/03/22 ankle fusion; peroneal/ATF repair; wears a strap-up ankle brace out of doors. Precautions: none. Fall Risk: none S/P R ankle fusion; peroneal/ATF repair done 11/03/22. Functional Assessment Prior level of function: PAINFUL, DIFFICULT, OR ALTERED ADL (marked with an xx) sleep-- sitting-- sit to standing transfers--XX car transfers--XX standing-- walking--XX carrying-- stairs--XX dressing lowers--XX driving-- dressing uppers-- reaching---- handling objects-- other-- . Patient stated goal(s) for treatment include: relieving pain , increasing strength , increasing mobility , walking with a normal gait , reducing symptoms , reducing/preventing future occurrences and learning preventative care measures . 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 Current Status: improving. Patient Awareness: Patient is aware of her diagnosis and prognosis. Personal Factors That May Impact Care:. ID confirmed with B-day; speaks armenian No obtrusive barriers to learning identified/observed. Objective Ortho ROM / Joint Mobility (Range of Motion in degrees) Foot and Ankle: (Forrester = P! Denotes Pain with Movement) Dorsiflexion: R Active 10, L Active 15. B inv/ev NT; B PF WFL. Gait / Mobility Gait: reduced R push-off; L step length. Strength Foot and Ankle: (Forrester: P! Denotes Pain with Movement) Foot dorsiflexion was 4/5 on right, 5/5 on left. Foot plantar flexion was 4/5 on right, 5/5 on left. Ankle eversion was 5/5 on left. Ankle inversion was 5/5 on left. R inv/ev NT. Outcome Measures Lower Extremity Functional Scale score: 37/80 Treatment Time in clinic started at 5:05 pm Time in clinic ended at 5:52 pm Total time in clinic is 47 minutes. Total timed code time is 10 minutes. Treatment Performed Today:. seated PF/DF PRE x10 ea (manual today) DF strap stretch 10 x 10 hold open to closed chain DF/PF ROM and PRE.-A gait/balance activities PRN.-A. Evaluation Code: 99210 PT Eval: Low Complexity, 35 min(s). Timed: 21515 Therapeutic Exercises, 12 mi (more content not included)... Normal [employer] Therapy Communicationon 02-07 Therapy Communication Message NIA PRYOR was (D/C)- last seen: . Nia has been seen in clinical physical therapy on 02/27 to 04/14/23 for 9 visit (s) ; there has been no further visits attended; D/C from clinic PT. Signatures Electronically signed by : Bernardo De Los Santos, PT; May 19 2023 10:39AM EST (Author) Normal [employer] Emergency Department Summary on 11-10-2022 Emergency Department Summary [facility] Medical Records Department [facility] [place] [address] Emergency Department Summary 11/10/22 MR#: [id number] Acct: [id number] Name: NIA PRYOR Rep #: [id number] : 1975 47 From: David Morris PCP: Dr. Mónica Davis, DO Status:DEP ER Location: ED HPI History of Present Illness Chief Complaint: Lower Extremity Injury Informant: patient and spouse/S.O. Narrative Narrative: Presents ED for DVT rule out. Postop day 7 right anterior talofibular ligament repair, peroneal tendon debridement and repair, currently nonweightbearing. Reports follow-up yesterday in the office for wound check. In the evening started having calf pain. She has residual paresthesias from the nerve block. Denies chest pains or shortness of breath. Denies fevers. She called the office today was sent to the ED for evaluation. No history of DVTs. Prior similar symptoms: No PFSH PFSH Medical History Abrasion Arthritis Discoloration of skin Endometriosis determined by laparoscopy ( 02/11/20) Infertility Injury of head and neck Lipoma of back PCOS (polycystic ovarian syndrome) Wears contact lenses Wears glasses Home Medications omega-3 360 ar-jgb-zls-fish oil 1,200 mg capsule,delayed release (Fish Oil) 3 cap PO DAILY 04/25/19 [History Last Taken 10/31/22] metformin 500 mg tablet 1,000 mg PO DAILY polycystic ovarian syndro 02/10/20 [History Last Taken Unknown] multivitamin with minerals 1 ea PO DAILY 02/10/20 [History Last Taken Unknown] fexofenadine 180 mg tablet 180 mg PO DAILY allergies 05/08/20 [History Last Taken Unknown] acetaminophen 500 mg tablet (Tylenol Extra Strength) 500 mg PO Q4H PRN pain #10 tabs 11/05/22 [Rx Last Taken Unknown] apixaban 2.5 mg tablet (Eliquis) 2.5 mg PO Q12H #60 tabs 11/05/22 [Rx Last Taken Unknown] tramadol 50 mg tablet 50 mg PO Q4H PRN PRN Pain Score 4-10 #30 tabs 11/05/22 [Rx Last Taken Unknown] Allergy/AdvReac Type Severity Reaction Status Date / Time oxycodone Allergy Mild rash Verified 11/10/22 09:25 hydrocodone Allergy Itching Verified 11/10/22 09:25 Family History Father Diabetes Mother Cancer uterine Aunt Breast cancer Grandmother Asthma Surgical History H/O laparoscopy ( 02/11/20) H/O ovarian cystectomy ( 02/11/20) S/P excision of lipoma Social History number of children: 0 current occupational status: employed current occupation: [employer] Smoking Status: Never smoker alcohol intake: never substance use type: does not use diet: low carbohydrate caffeine: Yes (4) Type: coffee and tea seatbelt use: always do you feel safe at home: Yes additional social history: Danielito CHAKRABORTY ROS ROS ED Constitutional Constitutional ED: Denies chills, fever(s) or sweats Eyes Eyes: Denies change in vision ENT ENT ED: Denies dysphagia or sore throat Cardiovascular Cardiovascular: Denies chest pain, leg edema, palpitations or racing heartbeat Respiratory/Chest Respiratory/Chest: Denies cough, dyspnea or dyspnea on exertion Gastrointestinal Gastrointestinal: Denies abdominal pain, diarrhea, nausea or vomiting Genitourinary Genitourinary ED: Denies dysuria, hematuria or urinary frequency Musculoskeletal Musculoskeletal: Reports extremity pain; Denies back pain or neck pain Integumentary Denies rash or wounds Neurologic Neurologic: Denies headache(s), paresthesias or weakness EXAM Physical Exam Const Vital Signs: 11/10/22 09:22 Temperature 97.9 F Temperature Source Temporal Pulse Rate 77 Respiratory Rate 14 Blood Pressure 137/85 H Blood Pressure Mean 102 Pulse Ox 99 Oxygen Delivery Method Room Air Positive well nourished and well developed General Appearance ED: well developed and NAD HEENT Reports moist mucous membranes normocephalic and atraumatic Eyes PERRL, EOMs intact bilaterally and conjunctivae normal General Eye ED: Yes normal appearance of both eyes Neck no lymphadenopathy and supple General: Negative for tenderness Chest Wall Chest: Negative for tenderness Resp normal respiratory effort and normal air movement Effort and Inspection: symmetric chest movement; Negative for respiratory distress Cardio regular rate, regular rhythm and no murmurs Peripheral Pulses: pulses 2+ throughout GI normal to inspection, nondistended, normoactive bowel sounds and non-tender Palpation: Negative for guarding or rebound tenderness present Back/Spine no CVA tenderness and no thoracic nor lumbar tenderness Extremity Extremity Narrative: Right lower extremity: No medial thigh pain. Short leg posterior splint was (more content not included)... Normal [facility] Venous Duplex US, Unilateral on 11-10-2022 Venous Duplex US, Unilateral [facility] [address] [place] [address] Venous Duplex US, Unilateral 11/10/22 0938 MR#: [id number] Acct: [id number] Name: NIA PRYOR Rep #: [id number] : 1975 47 From: Kendall Grant MD Attending Dr: Status: DEP ER Ordering Dr: David Centeno DO Date: 11/10/22 Location: ED Sex: F C Admitted: Reason For Study: pain RIGHT GSV is normal. CFV is compressible, spontaneous, phasic, competent and demonstrates normal augmentation. FV is compressible, spontaneous, phasic, competent and demonstrates normal augmentation. POP V is compressible, spontaneous, phasic, competent and demonstrates normal augmentation. T/P Trunk is compressible. PTV is compressible. RT PerV is compressible. Procedure This is a venous duplex using B-mode, color flow and spectral Doppler. Exam performed portable in ED. The exam was abbreviated due to the COVID 19 protocol. The exam was diagnostic. A preliminary report was called and/or faxed to Dr. Centeno. VL/Venous Duplex US, Unilateral Interpretation Summary Deep veins of the right lower extremity are patent and compressible segmentally. There is no evidence of right lower extremity deep vein thrombosis. Valvular competence appears intact within the proximal deep venous system on the right . The right great saphenous vein appears patent and compressible segmentally. Ordering Physician: David Centeno Performed By: Mu Ventura RVT 11/10/222149 Date Kendall Grant MD CC: Dr. Mónica Davis DO; Dr. David Centeno DO Date Dictated: 11/10/22937 Date Transcribed: 11/10/222149 Field Services Manager: Signed Normal [facility] Vitamin D,25 Hydroxyon 11-07 Vitamin D 25-OH 37.6 ng/mL Normal [facility] Comment on above: Result Comment: Yvonne min D 25(OH) Status Range Deficiency <20 ng/mL (50nmol/L) Insufficiency 20 - 30 ng/mL (50 - 75 nmol/L) Sufficiency 30 - 100 ng/mL (75 - 250 nmol/L) Toxicity >100 ng/mL (>250 nmol/L) Performed By: #### L 506.1000 #### [facility] [address] [place], [address] Discharge Instructionon 10-[address] [facility] Medical Records Department [address] [place] [address] Instructions for Home/Discharge Instructions 11/05/22 1303 MR#: [id number] Acct: [id number] Name: NIA PRYOR Rep #: [id number] : 1975 47 From: Toro Valdovinos DPM PCP: Dr. Mónica Davis, DO Status:ADM [facility]UCE Discharge Instructions Activity Discharge Activity: May Not Drive and Use Walker Weight Bearing Status: No weight bearing (No weightbearing right foot.) Keep extremity elevated above heart level: Right Leg (Keep right foot elevated for at least 50 minutes of every hour using pillows.) Dressing / Incision Call your doctor if your incision/area has: Continuous Slow Oozing, Sudden Increased Bleeding and Foul Smelling Discharge Call your doctor if you observe: Fever of 101 or Higher, Shortness of breath, Chest pain, Increased palpitations (irregular heartbeat) and Calf discomfort Remove Dressing in: do not remove dressing Cleanse incision/area with: Keep Dressing Clean Dry Follow Up Care Please Follow Up With: Toro Valdovinos DPM When: Next Monday sooner if needed. Call [facility] if needed - [phone] Test Results: Test results from this visit will be discussed in further detail at your follow-up appointment, if applicable. Discharge Plan Admission Admit Date/Time: 11/03/22 14:50 Attending Provider: Toro Valdovinos Primary Care Provider: Mónica Davis Consulting Providers: Logan Toure Discharge Orders/Prescriptions Prescriptions: New tramadol 50 mg Tablet 50 mg PO Q4H PRN PRN (Reason: Pain Score 4-10) Qty: 30 0RF Eliquis 2.5 mg tablet 2.5 mg PO Q12H Qty: 60 0RF acetaminophen [Tylenol Extra Strength] 500 mg tablet 500 mg PO Q4H PRN (Reason: pain) Qty: 10 0RF Continued omega 5-wcl-zwc-fish oil [Fish Oil] 360-1,200 mg capsule,delayed release(DR/EC) 3 cap PO DAILY Label Comments: stopped for surgery per instructions metformin 500 MG tablet 1,000 mg PO DAILY multivitamin with minerals 1 EACH tablet 1 ea PO DAILY fexofenadine 180 MG tablet 180 mg PO DAILY Discontinued meloxicam 15 mg tablet 15 mg PO DAILY Referrals / Follow Up: Mónica Davis DO [Primary Care Provider] - Disposition Disposition (needs filled in before D/C Order can be placed): Home, Self Care 11/05/22 1308 Toro Valdovinos DPM CC: Dr. Mónica Davis DO; Dr. Logan Toure DO Signed Normal [facility] Absolute lymphocyte countOrd ered By: Dr. Valdovinos on 11-04-2022 Lymphocytes Auto (Unsp spec) [#/Vol] 1.74 10*3/uL 0.83-4.51 [facility] Basophil percentageOrdered B y: Dr. Valdovinos on 11-04-2022 Basophils/100 WBC (Bld) 0.1 % 0-1 [facility] Bilirubin [Mass/Vol] 0.60 mg/dL 0.20-1.00 [facility] Comment on above: For patients on eltr ombopag therapy, use of Dimension [place] TBIL is not recommended. Chloride [Moles/Vol] 106 mmol/L 98-107 [facility] Eosinophils/100 WBC (Bld) 0.0 % 0-5 [facility] Glucose [Mass/Vol] 120 mg/dL 74-106 [facility] Comment on above: Fasting Glucose resu lt from 100 to 125 mg/dL suggests IMPAIRED HOMEOSTASIS per A.D.A. criteria. Neutrophils (Bld) [#/Vol] 11.5 10*3/uL 2.0-7.7 [facility] Neutrophils/100 WBC (Bld) 80.2 % 47-70 [facility] Potassium [Moles/Vol] 3.6 mmol/L 3.5-5.1 [facility] Protein [Mass/Vol] 6.9 g/dL 6.4-8.2 [facility] Sodium [Moles/Vol] 141 mmol/L 136-145 [facility] WBC (Bld) [#/Vol] 14.3 10*3/uL 4.4-11.0 [facility] Blood erythrocytes count (nu mber/volume)Ordered By: Dr. Valdovinos on 11-04-2022 RBC (Bld) [#/Vol] 4.29 10*6/uL 4.2-5.4 [facility] Blood hemoglobin measurement (mass/volume)Ordered By: Dr. Valdovinos on 11-04-2022 Hemoglobin (Bld) [Mass/Vol] 12.4 g/dL 12.0-15.0 [facility] Blood lymphocytes/100 leukoc ytesOrdered By: Dr. Valdovinos on 11-04-2022 Lymphocytes/100 WBC (Bld) 12.2 % 19-41 [facility] Blood monocytes/100 leukocyt esOrdered By: Dr. Valdovinos on 11-04-2022 Monocytes/100 WBC (Bld) 6.9 % 0-10 [facility] Blood platelet mean volumeOr dered By: Dr. Valdovinos on 11-04-2022 Platelet mean volume (Bld) [Entitic vol] 9.9 fL 6.2-12.0 [facility] CBC W/Diff, Automatedon 10-10 Absolute Lymph 1.74 X10 3/uL Normal 0.83-4.51 [facility] Comment on above: Performed By: #### L 500.4050, L100.0100 #### [facility] [address] [place], [address] Absolute Neut 11.5 X10 3/uL High 2.0-7.7 [facility] Comment on above: Performed By: #### L 500.4050, L100.0100 #### [facility] [address] [place], [address] Basophils/100 WBC (Bld) 0.1 % Normal 0-1 [facility] Comment on above: Performed By: #### L 500.4050, L100.0100 #### [facility] [address] [place], [address] Eosinophils/100 WBC (Bld) 0.0 % Normal 0-5 [facility] Comment on above: Performed By: #### L 500.4050, L100.0100 #### [facility] [address] [place], [address] Erythrocyte distribution width (RBC) [Ratio] 12.4 % Normal 11.6-14.6 [facility] Comment on above: Performed By: #### L 500.4050, L100.0100 #### [facility] [address] [place], [address] Hematocrit (Bld) [Volume fraction] 38.7 % Normal 37-47 [facility] Comment on above: Performed By: #### L 500.4050, L100.0100 #### [facility] [address] [place], [address] Hemoglobin (Bld) [Mass/Vol] 12.4 g/dL Normal 12.0-15.0 [facility] Comment on above: Performed By: #### L 500.4050, L100.0100 #### [facility] [address] [place], [address] IG% 0.600 Normal 0.0-0.9 [facility] Comment on above: Result Comment: IG% - Immature Granulocytes (promyelocytes, myelocytes and metamyelocytes) > 1% indicates that a LEFT SHIFT is Present. Performed By: #### L 500.4050, L100.0100 #### [facility] [address] [place], [address] Lymphocytes/100 WBC (Bld) 12.2 % Low 19-41 [facility] Comment on above: Performed By: #### L 500.4050, L100.0100 #### [facility] [address] [place], [address] MCH (RBC) [Entitic mass] 28.9 pg Normal 27.0-32.0 [facility] Comment on above: Performed By: #### L 500.4050, L100.0100 #### [facility] [address] [place], [address] MCHC (RBC) [Mass/Vol] 32.0 g/dL Normal 32-36 [facility] Comment on above: Performed By: #### L 500.4050, L100.0100 #### [facility] [address] [place], [address] MCV (RBC) [Entitic vol] 90.2 fL Normal 81-99 [facility] Comment on above: Performed By: #### L 500.4050, L100.0100 #### [facility] [address] [place], [address] Monocytes/100 WBC (Bld) 6.9 % Normal 0-10 [facility] Comment on above: Performed By: #### L 500.4050, L100.0100 #### [facility] [address] [place], [address] Neutrophils/100 WBC (Bld) 80.2 % High 47-70 [facility] Comment on above: Performed By: #### L 500.4050, L100.0100 #### [facility] [address] [place], [address] Nucleated RBC (Bld) [#/Vol] 0 10*3/uL Normal 0-5 [facility] Comment on above: Performed By: #### L 500.4050, L100.0100 #### [facility] [address] [place], [address] Platelet mean volume (Bld) [Entitic vol] 9.9 fL Normal 6.2-12.0 [facility] Comment on above: Performed By: #### L 500.4050, L100.0100 #### [facility] [address] [place], [address] Platelets (Bld) [#/Vol] 332 10*3/uL Normal 150-450 [facility] Comment on above: Performed By: #### L 500.4050, L100.0100 #### [facility] [address] [place], [address] RBC (Bld) [#/Vol] 4.29 10*6/uL Normal 4.2-5.4 [facility] Comment on above: Performed By: #### L 500.4050, L100.0100 #### [facility] [address] [place], [address] RDW SD 40.7 fl Normal 35.1-43.9 [facility] Comment on above: Performed By: #### L 500.4050, L100.0100 #### [facility] [address] [place], [address] WBC (Bld) [#/Vol] 14.3 10*3/uL High 4.4-11.0 [facility] Comment on above: Performed By: #### L 500.4050, L100.0100 #### [facility] [address] [place], [address] Comprehensive Metabolic Prof [facility] 11-04-2022 Albumin [Mass/Vol] 3.2 g/dL Normal 3.2-5.0 [facility] Comment on above: Performed By: #### L 500.4050, L100.0100 #### [facility] [address] [place], [address] Albumin/Globulin [Mass ratio] 0.9 {ratio} Normal 0.9-2.4 [facility] Comment on above: Performed By: #### L 500.4050, L100.0100 #### [facility] [address] [place], [address] ALK P 61 U/L Normal 45-117 [facility] Comment on above: Performed By: #### L 500.4050, L100.0100 #### [facility] [address] [place], [address] ALT [Catalytic activity/Vol] 27 U/L Normal 13-56 [facility] Comment on above: Performed By: #### L 500.4050, L100.0100 #### [facility] [address] [place], [address] AST [Catalytic activity/Vol] 17 U/L Normal 15-37 [facility] Comment on above: Performed By: #### L 500.4050, L100.0100 #### [facility] [address] [place], [address] Bilirubin [Mass/Vol] 0.60 mg/dL Normal 0.20-1.00 [facility] Comment on above: Result Comment: For patients on eltrombopag therapy, use of Dimension [place] TBIL is not recommended. Performed By: #### L 500.4050, L100.0100 #### [facility] [address] [place], [address] BUN/CRE 12.8 RATIO Normal 10-20 [facility] Comment on above: Performed By: #### L 500.4050, L100.0100 #### [facility] [address] [place], [address] CA,Total 8.7 mg/dL Normal 8.5-10.1 [facility] Comment on above: Performed By: #### L 500.4050, L100.0100 #### [facility] [address] [place], [address] Chloride [Moles/Vol] 106 mmol/L Normal 98-107 [facility] Comment on above: Performed By: #### L 500.4050, L100.0100 #### [facility] [address] [place], [address] CO2 [Moles/Vol] 25.0 mmol/L Normal 21.0-32.0 [facility] Comment on above: Performed By: #### L 500.4050, L100.0100 #### [facility] [address] [place], [address] Creatinine [Mass/Vol] 0.78 mg/dL Normal 0.55-1.02 [facility] Comment on above: Result Comment: The validity of the calculated GFR GFRAA in patients over 70 years has not been determined. Clinical correlation is essential. Performed By: #### L 500.4050, L100.0100 #### [facility] [address] [place], [address] ECRCL 83.47 ml/min Normal [facility] Comment on above: Performed By: #### L 500.4050, L100.0100 #### [facility] [address] [place], [address] EST GFR - AA 101 mL/min Normal >60 [facility] Comment on above: Result Comment: Afri can [place] GFR Calc Performed By: #### L 500.4050, L100.0100 #### [facility] [address] [place], [address] GAP 10 Normal 5-15 [facility] Comment on above: Performed By: #### L 500.4050, L100.0100 #### [facility] [address] [place], [address] GFR/1.73 sq M.predicted among non-blacks MDRD (S/P/Bld) [Vol rate/Area] 84 mL/min/{1.73_m2} Normal >60 [facility] Comment on above: Result Comment: Non- GFR Calc Performed By: #### L 500.4050, L100.0100 #### [facility] [address] [place], [address] Globulin (S) [Mass/Vol] 3.7 g/dL Normal 2.2-4.2 [facility] Comment on above: Performed By: #### L 500.4050, L100.0100 #### [facility] [address] [place], [address] Glucose [Mass/Vol] 120 mg/dL High 74-106 [facility] Comment on above: Result Comment: Fast ing Glucose result from 100 to 125 mg/dL suggests IMPAIRED HOMEOSTASIS per A.D.A. criteria. Performed By: #### L 500.4050, L100.0100 #### [facility] [address] [place], [address] Potassium [Moles/Vol] 3.6 mmol/L Normal 3.5-5.1 [facility] Comment on above: Performed By: #### L 500.4050, L100.0100 #### [facility] [address] [place], [address] Sodium [Moles/Vol] 141 mmol/L Normal 136-145 [facility] Comment on above: Performed By: #### L 500.4050, L100.0100 #### [facility] [address] [place], [address] T PROT 6.9 g/dL Normal 6.4-8.2 [facility] Comment on above: Performed By: #### L 500.4050, L100.0100 #### [facility] [address] [place], [address] Urea nitrogen [Mass/Vol] 10 mg/dL Normal 7-18 [facility] Comment on above: Performed By: #### L 500.4050, L100.0100 #### [facility] [address] [place], [address] Determination of erythrocyte mean corpuscular volume (MCV)Ordered By: Dr. Valdovinos on 11-04-2022 MCV (RBC) [Entitic vol] 90.2 fL 81-99 [facility] Hematocrit Auto (Bld) [Volum e fraction]Ordered By: Dr. Valdovinos on 11-04-2022 Hematocrit (Bld) [Volume fraction] 38.7 % 37-47 [facility] - Chemistry and C hemistry - challengeOrdered By: Dr. Valdovinos on 11-04-2022 ALP [Catalytic activity/Vol] 61 U/L 45-117 [facility] ALT [Catalytic activity/Vol] 27 U/L 13-56 [facility] CO2 [Moles/Vol] 25.0 mmol/L 21.0-32.0 [facility] Globulin (S) [Mass/Vol] 3.7 g/dL 2.2-4.2 [facility] Urea nitrogen/Creatinine [Mass ratio] 12.8 mg/mg 10-20 [facility] - Hematology and Cell countsOrdered By: Dr. Valdovinos on 11-04-2022 Erythrocyte distribution width (RBC) [Entitic vol] 40.7 fL 35.1-43.9 [facility] Erythrocyte distribution width (RBC) [Ratio] 12.4 % 11.6-14.6 [facility] Immature granulocytes/100 WBC (Bld) 0.600 % 0.0-0.9 [facility] Comment on above: IG% - Immature Granu locytes (promyelocytes, myelocytes and metamyelocytes) > 1% indicates that a LEFT SHIFT is Present. MCH (RBC) [Entitic mass] 28.9 pg 27.0-32.0 [facility] Nucleated RBC/100 WBC (Bld) [Ratio] 0 % 0-5 [facility] MCHC Auto (RBC) [Mass/Vol]Or dered By: Dr. Valdovinos on 11-04-2022 MCHC (RBC) [Mass/Vol] 32.0 g/dL 32-36 [facility] No Panel InformationOrdered By: Dr. Valdovinos on 11-04-2022 Estimated Creatinine Clearance Calc 83.47 ml/min [facility] Estimated GFR (MDRD) Amer 101 mL/min >60 [facility] Comment on above: GFR Calc Estimated GFR (MDRD) Non-Af Amer 84 mL/min >60 [facility] Comment on above: Non- GFR Calc Vitamin D 25-Hydroxy 37.6 ng/mL [facility] Comment on above: Vitamin D 25(OH) Sta tus Range Deficiency <20 ng/mL (50nmol/L) Insufficiency 20 - 30 ng/mL (50 - 75 nmol/L) Sufficiency 30 - 100 ng/mL (75 - 250 nmol/L) Toxicity >100 ng/mL (>250 nmol/L) Platelets bldOrdered By: Dr. Valdovinos on 11-04-2022 Platelets (Bld) [#/Vol] 332 10*3/uL 150-450 [facility] Serum or plasma albumin viola urement (mass/volume)Ordered By: Dr. Valdovinos on 11-04-2022 Albumin [Mass/Vol] 3.2 g/dL 3.2-5.0 [facility] Serum or plasma albumin/glob ulin mass ratioOrdered By: Dr. Valdovinos on 11-04-2022 Albumin/Globulin [Mass ratio] 0.9 {ratio} 0.9-2.4 [facility] Serum or plasma calcium viola urement (mass/volume)Ordered By: Dr. Valdovinos on 11-04-2022 Calcium [Mass/Vol] 8.7 mg/dL 8.5-10.1 [facility] Serum or plasma creatinine m easurement (mass/volume)Ordered By: Dr. Valdovinos on 11-04-2022 Creatinine [Mass/Vol] 0.78 mg/dL 0.55-1.02 [facility] Comment on above: The validity of the calculated GFR & GFRAA in patients over 70 years has not been determined. Clinical correlation is essential. Serum or plasma urea nitroge n measurement (mass/volume)Ordered By: Dr. Valdovinos on 11-04-2022 Urea nitrogen [Mass/Vol] 10 mg/dL 7-18 [facility] Thin prep Papanicolaou smear with manual screeningOrdered By: Dr. Valdovinos on 11-04-2022 Thin prep Papanicolaou smear with manual screening 17 U/L 15-37 [facility] Thin prep Papanicolaou smear with manual screening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 Dictated: 07/06/2018 1:00 pm Zach Cook MDigned (Electronic Signature): 07/06/2018 1:00 pmSigned by: Marques Cook MD Technologist: [facility] Vital Signs Date Time Vital Sign Value Performing Clinician Facility 05-19-2024 08:56-0400 Diastolic blood pressure 76 mm[Hg] Juan Lennon DO Work Phone: [facility] 05-19-2024 08:56-0400 Heart rate 66 /min Juan Lennon DO Work Phone: [facility] 05-19-2024 08:56-0400 Respiratory rate 16 /min Juan Lennon DO Work Phone: [facility] 05-19-2024 08:56-0400 SaO2% (BldA) [Mass fraction] 97 % Juan Lennon DO Work Phone: [facility] 05-19-2024 08:56-0400 Systolic blood pressure 143 mm[Hg] Juan Lennon DO Work Phone: [facility] 05-19-2024 07:45-0400 Body height 167.6 cm Juan Lennon DO Work Phone: [facility] 05-19-2024 07:45-0400 Body mass index (BMI) [Ratio] 32.28 kg/m2 Juan Lennon DO Work Phone: [facility] 05-19-2024 07:45-0400 Body temperature 98.2 [degF] Juan Lennon DO Work Phone: [facility] 05-19-2024 07:45-0400 Body weight 90.72 kg Juan Jaimesangy DO Work Phone: [facility] 12-18-2023 05:16-0400 Diastolic blood pressure 81 mm[Hg] Cece Miller MD Work Phone: [facility] 12-18-2023 05:16-0400 Heart rate 68 /min Cece Miller MD Work Phone: [facility] 12-18-2023 05:16-0400 Respiratory rate 16 /min Cece Miller MD Work Phone: [facility] 12-18-2023 05:16-0400 SaO2% (BldA) [Mass fraction] 97 % Cece Miller MD Work Phone: [facility] 12-18-2023 05:16-0400 Systolic blood pressure 142 mm[Hg] Cece Miller MD Work Phone: [facility] 12-18-2023 03:25-0400 Body height 167.6 cm Cece Miller MD Work Phone: [facility] 12-18-2023 03:25-0400 Body mass index (BMI) [Ratio] 32.28 kg/m2 Cece Miller MD Work Phone: [facility] 12-18-2023 03:25-0400 Body temperature 97 [degF] Cece Miller MD Work Phone: [facility] 12-18-2023 03:25-0400 Body weight 90.72 kg Cece Miller MD Work Phone: [facility] 11-05-2022 14:00-0500 Body temperature 98.6 [degF] [facility] 11-05-2022 14:00-0500 Diastolic blood pressure 70 mm[Hg] [facility] 11-05-2022 14:00-0500 Heart rate 85 /min [facility] 11-05-2022 14:00-0500 Respiratory rate 18 /min [facility] 11-05-2022 14:00-0500 SaO2% (BldA) [Mass fraction] 98 % [facility] 11-05-2022 14:00-0500 Systolic blood pressure 130 mm[Hg] [facility] 11-03-2022 16:33-0500 Body height 167.64 cm [facility] 11-03-2022 16:33-0500 Body mass index (BMI) [Ratio] 31.9 kg/m2 [facility] 11-03-2022 16:33-0500 Body weight 89.9 kg [facility] 11-03-2022 15:00-0500 Inhaled oxygen flow rate 4 L/min [facility] 11-19-2021 21:30-0500 Heart rate 91 /min Mónica Cokernia Other Phone: [facility] 11-19-2021 21:30-0500 Respiratory rate 16 /min Mónica John Paulys Other Phone: [facility] 11-19-2021 21:30-0500 SaO2% (BldA) [Mass fraction] 97 % Mónica Cokernai Other Phone: [facility] 11-19-2021 21:00-0500 Diastolic blood pressure 82 mm[Hg] Mónica Cokernai Other Phone: [facility] 11-19-2021 21:00-0500 Systolic blood pressure 148 mm[Hg] Mónica John Paulys Other Phone: [facility] 11-19-2021 19:51-0500 Body temperature 97.16 [degF] Mónica Cokernai Other Phone: [facility] 11-19-2021 19:51-0500 Body weight 88 kg Mónicanury Davis Other Phone: [facility] Encounters Encounter Date Encounter Type Care Provider Facility Start: 05-19-2024 End: 05-19-2024 Emergency department patient visit MÓNICA DAVIS [facility] Work Phone: Comment on above: Menorrhagia with irr egular cycle (Primary Dx) Start: 12-18-2023 End: 12-18-2023 ambulatory CECE MILLER [facility] Start: 12-18-2023 End: 12-18-2023 Subsequent hospital visit by physician Ariel Moreirav1 [employer] [facility] Comment on above: Arrived Start: 12-18-2023 End: 12-18-2023 Emergency department patient visit Cece Miller MD Work Phone: [facility] Comment on above: Chest pain, unspecif ied type (Primary Dx) Start: 10-30-2023 End: 10-30-2023 ambulatory [facility] Work Phone: Start: 10-30-2023 End: 10-30-2023 Patient encounter procedure [facility] - [facility] Work Phone: Start: 10-17-2023 End: 10-17-2023 ambulatory [facility] Work Phone: Start: 10-17-2023 End: 10-17-2023 Patient encounter procedure [facility]-Cat Scan, [facility] Work Phone: Start: 06-28-2023 End: 06-28-2023 ambulatory [facility] Work Phone: Start: 06-28-2023 End: 06-28-2023 Patient encounter procedure [facility]-Cat Scan, [facility] Work Phone: Start: 04-14-[address] Mónica Davis Facrudy lity:[phone] Start: 03-31-[address] Mónica Davis Facrudy lity:[phone] Start: 03-31-2023 Patient encounter procedure Mónica Davis Work Phone: [facility] Work Phone: Start: 03-24-[address] Toro dickson [facility] Facility:[id number] Start: 03-24-2023 Patient encounter procedure [facility] Start: 03-20-[address] Mónica Cross lity:[phone] Start: 03-13-[address] Mónica Diazi lity:[phone] Start: 03-13-2023 Patient encounter procedure [facility]ónica Davis [facility] Work [facility]: Start: 03-10-[address] Mónica Diazi lity:[phone] Start: 03-10-2023 Patient encounter procedure [facility]ica Davis [facility] Work [facility]: Start: 03-10-2023 [id number], Provider : Bernardo De Los Santos, Status: Pen, Time: 7:00 AM Mónica uNry Susan [facility] Work Phone: Start: 03-08-[address] Mónica Cross lity:[phone] Start: 03-08-2023 Patient encounter procedure [facility]ónica Davis [facility] Work [facility]: Start: 03-03-[address] Mónica Davis Faci lity:[phone] Start: 02-27-2023 Patient encounter procedure [facility]ónica Davis [facility] Work [facility]: Start: 02-27-[address] Mónica Cross lity:[phone] Start: 11-10-2022 End: 11-10-2022 Emergency department patient visit Mónica Davis Facility:[facility] Start: 11-07-2022 Encounter for other preprocedural examination Mónica Davis [facility] Start: 11-03-2022 End: 11-05-2022 ambulatory Toro Valdovinos Facility:[facility] Start: 11-03-2022 End: 11-05-2022 Evaluation and management of inpatient [facility]-Medical Surgical 3 Start: 11-03-2022 End: 11-05-2022 observation encounter [facility] Work Phone: Start: 10-28-2022 End: 10-28-[address] [facility] Work Phone: Start: 10-28-2022 End: 10-28-2022 Patient encounter procedure [facility]-Laboratory, Mikal Russell [facility] Start: 11-19-2021 End: 11-19-2021 Emergency department patient visit Danielito Herrera [facility] Emergency 12 Start: 07-06-2018 End: 07-07-2018 Patient encounter Haley Herrera Facility:[facility] Procedures Date Procedure Procedure Detail Performing Clinician Start: 05-19-2024 Urinalysis microscopic panel - Urine Qualitative by Automated Juan Lennon DO Work Phone: Start: 05-19-2024 Urnls dip stick/tablet reagent auto microscopy Juan Lennon DO Work Phone: Start: 05-19-2024 Comprehensive metabolic panel Juan Lennon DO Work Phone: Start: 05-19-2024 EXTRA TUBES Juan Lennon DO Work Phone: Start: 05-19-2024 LIGHT BLUE TOP Juan Lennon DO Work Phone: Start: 05-19-2024 SST TOP Juan Lennon DO Work Phone: Start: 12-18-2023 XR CHEST 1 VIEW MÓNICA MALYS Start: 12-18-2023 Basic metabolic 2000 panel - Serum or Plasma MÓNICA MALYS Start: 12-18-2023 CBC W Auto Differential panel - Blood MÓNICA MALYS Start: 12-18-2023 Hepatic function 2000 panel - Serum or Plasma MÓNICA MALYS Start: 12-18-2023 Lipase [Enzymatic activity/volume] in Serum or Plasma MÓNICA DAVIS Start: 12-18-2023 TROPONIN I, HIGH SENSITIVITY MÓNICA DAVIS Start: 12-18-2023 ECG 12-LEAD MÓNICA DAVIS Start: 12-18-2023 Radiologic exam chest single view Cece Miller MD Work Phone: Start: 12-18-2023 Comprehensive metabolic panel Cece Miller MD Work Phone: Start: 12-18-2023 Ecg routine ecg w/least 12 lds trcg only w/o i&r Cece Miller MD Work Phone: Start: 10-30-2023 MRI of joint of lower extremity Start: 10-17-2023 MRI of lower extremity Start: 06-28-2023 MRI of lower extremity Start: 11-03-2022 Radiography of ankle Start: 11-03-2022 X-ray of both feet Start: 11-03-2022 Fluoroscopic guidance Start: 11-03-2022 Radiography of ankle Start: 11-03-2022 Subtalar arthrodesis Start: 02-07-2020 H/O: surgery H/O ovarian cystectomy Plan of Treatment Date Care Activity Detail Author Start: 11-19-2031 DTaP/Tdap/Td Vaccine s (2 - Td or Tdap) DTaP/Tdap/Td Vaccines (2 - Td or Tdap) [facility] Start: 2025 Zoster Vaccines (1 of 2) Zoste r Vaccines (1 of 2) [facility] Start: 06-09-2024 Influenza vaccination Influenz a Vaccine (#1) [facility] Start: 06-09-2023 COVID-19 Vaccine ( season) COVID-19 Vaccine ( season) [facility] Start: 06-09-2023 Influenza vaccination Influenz a Vaccine (#1) [facility] Start: 04-19-2023 MAGGIE, Provider : Bernardo De Los Santos, Status: Pen, Time: 7:00 AM MAGGIE, Provider: Bernardo De Los Santos, Status: Pen, Time: 7:00 AM [facility] Work Phone: Start: 04-14-2023 [email or web address], Provider : Bernardo De Los Santos, Status: Pen, Time: 7:00 AM PTFUADULT4, Provider: Bernardo De Los Santos, Status: Pen, Time: 7:00 AM [facility] Work Phone: Start: 04-05-2023 PTFUADULT3, Provider : Bernardo De Los Santos, Status: Pen, Time: 5:15 PM PTFUADULT3, Provider: Bernardo De Los Santos, Status: Pen, Time: 5:15 PM [facility] Work Phone: Start: 03-31-2023 PTRECHADUL, Provider : Bernardo De Los Santos, Status: Pen, Time: 7:30 AM PTRECHADUL, Provider: Bernardo De Los Santos, Status: Pen, Time: 7:30 AM [facility] Work Phone: Start: 03-29-2023 PTFUADULT4, Provider : Lupe Zayas, Status: Pen, Time: 7:00 AM PTFUADULT4, Provider: Lupe Zayas, Status: Pen, Time: 7:00 AM [facility] Work Phone: Start: 03-24-2023 PTFUADULT4, Provider : Bernardo De Los Santos, Status: Pen, Time: 7:00 AM PTFUADULT4, Provider: Bernardo De Los Santos, Status: Pen, Time: 7:00 AM [facility] Work Phone: Start: 03-22-2023 PTFUADULT4, Provider : Bernardo De Los Santos, Status: Pen, Time: 7:00 AM PTFUADULT4, Provider: Bernarod De Los Santos, Status: Pen, Time: 7:00 AM [facility] Work Phone: Start: 03-20-2023 PTFUADULT4, Provider : Lupe Zayas, Status: Pen, Time: 7:00 AM PTFUADULT4, Provider: Lupe Zayas, Status: Pen, Time: 7:00 AM [facility] Work Phone: Start: 03-13-2023 PTFUADULT4, Provider : Janee Coyle, Status: Pen, Time: 7:00 AM PTFUADULT4, Provider: Janee Coyle, Status: Pen, Time: 7:00 AM [facility] Work Phone: Start: 11-05-2022 Patient discharge [facility] Start: 11-05-2022 Vitamin D, 25-hydrox y measurement [facility] Start: 11-03-2022 Following clinical p athway protocol [facility] Start: 11-03-2022 Catheterization of vein [facility] Start: 11-03-2022 Referral to service [facility] Start: 11-03-2022 Vital signs measurements [facility] Start: 11-03-2022 Incentive spirometry [facility] Start: 11-03-2022 Elevation of affecte d extremity [facility] Start: 11-03-2022 [facility] Start: 11-03-2022 Admission procedure [facility] Start: 11-03-2022 Assessment of risk o f venous thromboembolism [facility] Start: 11-03-2022 Verification routine [facility] Start: 2015 Screening for malign ant neoplasm of breast Mammogram [facility] Start: 1996 Screening for malign ant neoplasm of cervix [facility] Start: 1994 Hepatitis B Vaccines (1 of 3 - 19+ 3-dose series) Hepatitis B Vaccines (1 of 3 - 19+ 3-dose series) [facility] Start: 1993 Hepatitis C screening Hepatiti s C Screening [facility] Start: 1976 MMR Vaccines (1 of 1 - Standard series) MMR Vaccines (1 of 1 - Standard series) [facility] Start: 1975 Hepatitis B Vaccines (1 of 3 - 3-dose series) Hepatitis B Vaccines (1 of 3 - 3-dose series) [facility] Start: 1975 HIV screening HIV Screening [facility] Start: 1975 Lipid panel Lipid Panel [facility] Start: 1975 Screening for malign ant neoplasm of colon [facility] Start: 1975 Yearly Adult Physical Yearly A dult Physical [facility] End: 05-19-2024 Bacteria identified in Urine by Culture [facility] Work Phone: Comment on above: Once (Lab) for 1 Occ urrences starting 05/19/2024 until 05/19/2024 End: 12-18-2023 ECG 12 Lead [facility] Work Phone: Comment on above: Once for 1 Occurrenc es starting 12/18/2023 until 12/18/2023 End: 05-19-2024 Extra Urine Alvarez Tube [facility] Work Phone: Comment on above: Once for 1 Occurrenc es starting 05/19/2024 until 05/19/2024 Patient referral [facility] Work Phone: End: 05-19-2024 Urinalysis complete W Reflex Culture panel - Urine [facility] Work Phone: Comment on above: Once (Lab) for 1 Occ urrences starting 05/19/2024 until 05/19/2024 Immunizations Immunization Date Immunization Notes Care Provider Nadja juares 09-05-2022 influenza virus vaccine, unspecified formulation Cece Miller MD Work Phone: [facility] Work Phone: 11-19-2021 tetanus toxoid, redu faheem diphtheria toxoid, and acellular pertussis vaccine, adsorbed Mónica Malys Other Phone: [facility] Payers Date Payer Category Payer Private Health Insurance [employer] [id number] 2024-Present [address] [place] [id number] 2024 Private Health Insurance [id number] 2022 Self-pay [id number] 2021 Unknown [id number] 2018 Unknown 1975 Unknown [id number]. 1069 1975 Unknown [id number] [id number]. 1069 1975 Unknown [id number] 2.16.840.1.958761.3.579.2. 1069 1975 Unknown [id number] 2.16.840.1.286182.3.579.2. 1069 1975 Unknown [id number] 2.16.840.1.840734.3.579.2. 1069 1975 Unknown [id number] 2.16.840.1.537040.3.579.2. 1069 1975 Unknown [id number] 2.16.840.1.157322.3.579.2. 1069 1975 Unknown [id number] 2.16.840.1.394654.3.579.2. 1069 1975 Unknown [id number] 2.16.840.1.942101.3.579.2. 1069 1975 Unknown [id number] 2.16.840.1.223337.3.579.2. 1243 1975 Unknown [id number] 2.16.840.1.815882.3.579.2. 1243 1975 Unknown [id number] 2.16.840.1.022292.3.579.2. 1243 Unknown ANTHEM [id number] [employer] [facility] [place] [id number] Unknown [facility] [id number] Unknown [id number] [id number]. 462 Unknown [id number] 2.16.840.1.159465.3.579.2. 462 Unknown [id number] [id number]. 462 Social History Date Type Detail Facility [facility] Start: 10-31-2022 End: 11-10-2022 Tobacco smoking consumption unknown [facility] Start: 05-08-2020 Non-smoker [facility] Start: 1975 Sex Assigned At Female [facility] Start: 12-18-2023 Tobacco smoking status NHIS Never smoked tobacco [facility] Work Phone: Start: 12-18-2023 Tobacco use and exposure Smokeless tobacco non-user [facility] Work Phone: Start: 12-18-2023 End: 05-19-2024 Alcohol intake Lifetime non-drinker (finding) [facility] Work Phone: Start: 12-18-2023 History of Social function [facility] Work Phone: Start: 12-18-[address] [facility] Work Phone: Start: 1975 Sex Assigned At Not on file [facility] Work Phone: Start: 12-08-2023 End: 05-19-2024 Exposure to SARS-CoV-2 (event) Not sure [facility] Work Phone: NEGATED: Highlighted row [facility] Medical Equipment Procedure Code Equipment Code Equipment Origin al Text Equipment Identifier Dates Laparoscopy, diagnostic GERI 3GRM HEMOSTAT ABS FDA Start: 02-11-2020 Laparoscopy, diagnostic GERI 3GRM HEMOSTAT ABS FDA Start: 02-11-2020 Laparoscopy, diagnostic GERI 3GRM HEMOSTAT ABS FDA Start: 02-11-2020 Laparoscopy, diagnostic GERI 3GRM HEMOSTAT ABS FDA Start: 02-11-2020 Laparoscopy, diagnostic GERI 3GRM HEMOSTAT ABS FDA Start: 02-11-2020 Fusion, subtalar joint 6.5 HEADLESS COMP SCREW LNG THREAD FDA Start: 11-03-2022 Fusion, subtalar joint 6.5 HEADLESS COMP SCREW SHORT THREAD FDA Start: 11-03-2022 Fusion, subtalar joint PIN,3/32 X 9 DBL BAYONET MARIKA FDA Start: 11-03-2022 Fusion, subtalar joint PIN,3/32 X 9 DBL BAYONET MARIKA FDA Start: 11-03-2022 Fusion, subtalar joint PIN,3/32 X 9 DBL BAYONET MARIKA FDA Start: 11-03-2022 Fusion, subtalar joint PIN,5/32 X 9 DBL BAYONET MARIKA FDA Start: 11-03-2022 Fusion, subtalar joint ([id number]) Tendon/ligament bone anchor, bioabsorbable ([id number] FDA Start: 11-03-2022 Fusion, subtalar joint 6.5 HEADLESS COMP SCREW LNG THREAD FDA Start: 11-03-2022 Fusion, subtalar joint 6.5 HEADLESS COMP SCREW SHORT THREAD FDA Start: 11-03-2022 Fusion, subtalar joint PIN,3/32 X 9 DBL BAYONETim HAIRSTON FDA Start: 11-03-2022 Fusion, subtalar joint PIN,3/32 X 9 DBL BAYONET MARIKA FDA Start: 11-03-2022 Fusion, subtalar joint PIN,3/32 X 9 DBL BAYONET MARIKA FDA Start: 11-03-2022 Fusion, subtalar joint PIN,5/32 X 9 DBL BAYONET HAIRSTON FDA Start: 11-03-2022 Fusion, subtalar joint 6.5 HEADLESS COMP SCREW LNG THREAD FDA Start: 11-03-2022 Fusion, subtalar joint 6.5 HEADLESS COMP SCREW SHORT THREAD FDA Start: 11-03-2022 Fusion, subtalar joint PIN,3/32 X 9 DBL JERRY HAIRSTON FDA Start: 11-03-2022 Fusion, subtalar joint PIN,3/32 X 9 DBL BAYONETim HAIRSTON FDA Start: 11-03-2022 Fusion, subtalar joint PIN,3/32 X 9 DBL BAYONETim HAIRSTON FDA Start: 11-03-2022 Fusion, subtalar joint PIN,5/32 X 9 DBL BAYONET MARIKA FDA Start: 11-03-2022 Fusion, subtalar joint 6.5 HEADLESS COMP SCREW LNG THREAD FDA Start: 11-03-2022 Fusion, subtalar joint 6.5 HEADLESS COMP SCREW SHORT THREAD FDA Start: 11-03-2022 Fusion, subtalar joint PIN,3/32 X 9 DBL BREANNAONETim HAIRSTON FDA Start: 11-03-2022 Fusion, subtalar joint PIN,3/32 X 9 DBL JERRY HAIRSTON FDA Start: 11-03-2022 Fusion, subtalar joint PIN,3/32 X 9 DBL BREANNAONETim HAIRSTON FDA Start: 11-03-2022 Fusion, subtalar joint PIN,5/32 X 9 DBL BAYONETim HAIRSTON FDA Start: 11-03-2022 Fusion, subtalar joint 6.5 HEADLESS COMP SCREW LNG THREAD FDA Start: 11-03-2022 Fusion, subtalar joint 6.5 HEADLESS COMP SCREW SHORT THREAD FDA Start: 11-03-2022 Fusion, subtalar joint PIN,3/32 X 9 DBL JERRY HAIRSTON FDA Start: 11-03-2022 Fusion, subtalar joint PIN,3/32 X 9 DBL BAYONETim HAIRSTON FDA Start: 11-03-2022 Fusion, subtalar joint PIN,3/32 X 9 DBL JERRY HAIRSTON FDA Start: 11-03-2022 Fusion, subtalar joint PIN,5/32 X 9 DBL BAYONETim HAIRSTON FDA Start: 11-03-2022 Goals Date Patient Goal Desired Activity /State Functional Status Date Assessment Result Facility 11-05-2022 Functional status Bathroom Privilege [facility] Work Phone: Mental Status Date Assessment Result Facility 11-05-2022 Cognitive function Voice/Name [facility] Work Phone: Clinical Notes 11-03-2022 to 05-19-2024 Juan Humphrey Olayinka, DO - 05/19/2024 7:38 AM EDTClety Humphrey Olayinka, DO - 05/19/2024 7:38 AM EDTDischarge InstructionsAttachmentsCece Miller MD - 12/18/2023 3:20 AM EDT Note Date & Type Note Facility 05-19-2024 Emergency department Note HPI Chief Complaint Patient presents with Vaginal Bleeding Patient complains of vaginal bleeding for 13 days, states she is going through a pad every 2 hours. Denies dizziness or shortness of breath Limitations to History: None HPI: 48-year-old female with past medical history of PCOS presents with concern for heavy vaginal bleeding. States has been consistent over the past 13 days. States that this morning she passed a large amount of blood. Has had some intermittent cramping. Periods have been irregular over the past 7 months. Denies any fever, chills, urinary symptoms, lightheadedness, dizziness, shortness of breath, fall or trauma. Additional History Obtained from: at the bedside. Physical Exam: VS: As documented in the triage note and EMR flowsheet from this visit were reviewed. Appearance: Alert. cooperative, in no acute distress. Skin: Intact, dry skin, no lesions, rash, petechiae or purpura. Eyes: PERRLA, EOMs intact, Conjunctiva pink with no redness or exudates. HENT: Normocephalic, atraumatic. Nares patent. No intraoral lesions. Neck: Supple, without meningismus. Trachea at midline. No lymphadenopathy. Pulmonary: Clear bilaterally with good chest wall excursion. No rales, rhonchi or wheezing. No accessory muscle use or stridor. Cardiac: Regular rate and rhythm, no rubs, murmurs, or gallops. Abdomen: Abdomen is soft, nontender, and nondistended. No palpable organomegaly. No rebound or guarding. No CVA tenderness. Nonsurgical abdomen. Psychiatric: Appropriate mood and affect. Patient History No past medical history on file. No past surgical history on file. No family history on file. Social History Tobacco Use Smoking status: Never Smokeless tobacco: Never Vaping Use Vaping status: Never Used Substance Use Topics Alcohol use: Never Drug use: Never Physical Exam ED Triage Vitals [05/19/24 0745] Temperature Heart Rate Respirations BP 36.8 C (98.2 F) 77 16 167/88 Pulse Ox Temp Source Heart Rate Source Patient Position 95 % Temporal Monitor -- BP Location FiO2 (%) -- -- Physical Exam ED Course & MDM Diagnoses as of 05/19/24 0854 Menorrhagia with irregular cycle No data recorded Medical Decision Making Labs Reviewed URINALYSIS WITH REFLEX CULTURE AND MICROSCOPIC - Abnormal Color, Urine Colorless (*) Appearance, Urine Clear Specific [place], Urine 1.007 pH, Urine 6.5 Protein, Urine 30 (1+) (*) Glucose, Urine Normal Blood, Urine OVER (3+) (*) Ketones, Urine NEGATIVE Bilirubin, Urine NEGATIVE Urobilinogen, Urine Normal Nitrite, Urine NEGATIVE Leukocyte Esterase, Urine 75 Doris/ L (*) MICROSCOPIC ONLY, URINE - Abnormal WBC, Urine 1-5 WBC Clumps, Urine RARE RBC, Urine >20 (*) Squamous Epithelial Cells, Urine Bacteria, Urine 1+ (*) COMPREHENSIVE METABOLIC PANEL - Normal Glucose 95 Sodium 138 Potassium 3.8 Chloride 105 Bicarbonate 25 Anion Gap 12 Urea Nitrogen 11 Creatinine 0.60 eGFR >90 Calcium 8.7 Albumin 4.1 Alkaline Phosphatase 59 Total Protein 7.1 AST 16 Bilirubin, Total 0.6 ALT 17 URINE CULTURE CBC WITH AUTO DIFFERENTIAL WBC 7.9 nRBC 0.0 RBC 4.57 Hemoglobin 13.5 Hematocrit 40.9 MCV 90 MCH 29.5 MCHC 33.0 RDW 12.9 Platelets 254 Neutrophils % 66.8 Immature Granulocytes %, Automated 0.5 Lymphocytes % 23.3 Monocytes % 6.0 Eosinophils % 2.8 Basophils % 0.6 Neutrophils Absolute 5.24 Immature Granulocytes Absolute, Au* 0.04 Lymphocytes Absolute 1.83 Monocytes Absolute 0.47 Eosinophils Absolute 0.22 Basophils Absolute 0.05 URINALYSIS WITH REFLEX CULTURE AND MICROSCOPIC Narrative: The following orders were created for panel order Urinalysis with Reflex Culture and Microscopic. Procedure Abnormality Status --------- ------ Urinalysis with Reflex C...[[id number]] Abnormal Final result Extra Urine Alvarez Tube[[id number]] In process Please view results for these tests on the individual orders. EXTRA URINE ALVAREZ TUBE Medical Decision Making: Patient appears well nontoxic. Vital signs within normal limits. Asymptomatic. Hemoglobin normal. Patient will keep appointment with primary care and possible gynecology follow-up. Stable at time of discharge. Differential Diagnoses Considered: Menorrhagia, metrorrhagia, dysfunctional uterine bleeding Escalation of Care: Appropriate for discharge and follow-up with primary care and gynecology. Procedure Procedures Juan Lennon DO 05/19/2455 documented in this encounter [facility] Work Phone: 05-19-2024 Physician Emergency department Note HPI Chief Complaint Patient presents with Vaginal Bleeding Patient complains of vaginal bleeding for 13 days, states she is going through a pad every 2 hours. Denies dizziness or shortness of breath Limitations to History: None HPI: 48-year-old female with past medical history of PCOS presents with concern for heavy vaginal bleeding. States has been consistent over the past 13 days. States that this morning she passed a large amount of blood. Has had some intermittent cramping. Periods have been irregular over the past 7 months. Denies any fever, chills, urinary symptoms, lightheadedness, dizziness, shortness of breath, fall or trauma. Additional History Obtained from: at the bedside. Physical Exam: VS: As documented in the triage note and EMR flowsheet from this visit were reviewed. Appearance: Alert. cooperative, in no acute distress. Skin: Intact, dry skin, no lesions, rash, petechiae or purpura. Eyes: PERRLA, EOMs intact, Conjunctiva pink with no redness or exudates. HENT: Normocephalic, atraumatic. Nares patent. No intraoral lesions. Neck: Supple, without meningismus. Trachea at midline. No lymphadenopathy. Pulmonary: Clear bilaterally with good chest wall excursion. No rales, rhonchi or wheezing. No accessory muscle use or stridor. Cardiac: Regular rate and rhythm, no rubs, murmurs, or gallops. Abdomen: Abdomen is soft, nontender, and nondistended. No palpable organomegaly. No rebound or guarding. No CVA tenderness. Nonsurgical abdomen. Psychiatric: Appropriate mood and affect. Patient History No past medical history on file. No past surgical history on file. No family history on file. Social History Tobacco Use Smoking status: Never Smokeless tobacco: Never Vaping Use Vaping status: Never Used Substance Use Topics Alcohol use: Never Drug use: Never Physical Exam ED Triage Vitals [05/19/24 0745] Temperature Heart Rate Respirations BP 36.8 C (98.2 F) 77 16 167/88 Pulse Ox Temp Source Heart Rate Source Patient Position 95 % Temporal Monitor -- BP Location FiO2 (%) -- -- Physical Exam ED Course & MDM Diagnoses as of 05/19/24 0854 Menorrhagia with irregular cycle No data recorded Medical Decision Making Labs Reviewed URINALYSIS WITH REFLEX CULTURE AND MICROSCOPIC - Abnormal Color, Urine Colorless (*) Appearance, Urine Clear Specific [place], Urine 1.007 pH, Urine 6.5 Protein, Urine 30 (1+) (*) Glucose, Urine Normal Blood, Urine OVER (3+) (*) Ketones, Urine NEGATIVE Bilirubin, Urine NEGATIVE Urobilinogen, Urine Normal Nitrite, Urine NEGATIVE Leukocyte Esterase, Urine 75 Doris/ L (*) MICROSCOPIC ONLY, URINE - Abnormal WBC, Urine 1-5 WBC Clumps, Urine RARE RBC, Urine >20 (*) Squamous Epithelial Cells, Urine Bacteria, Urine 1+ (*) COMPREHENSIVE METABOLIC PANEL - Normal Glucose 95 Sodium 138 Potassium 3.8 Chloride 105 Bicarbonate 25 Anion Gap 12 Urea Nitrogen 11 Creatinine 0.60 eGFR >90 Calcium 8.7 Albumin 4.1 Alkaline Phosphatase 59 Total Protein 7.1 AST 16 Bilirubin, Total 0.6 ALT 17 URINE CULTURE CBC WITH AUTO DIFFERENTIAL WBC 7.9 nRBC 0.0 RBC 4.57 Hemoglobin 13.5 Hematocrit 40.9 MCV 90 MCH 29.5 MCHC 33.0 RDW 12.9 Platelets 254 Neutrophils % 66.8 Immature Granulocytes %, Automated 0.5 Lymphocytes % 23.3 Monocytes % 6.0 Eosinophils % 2.8 Basophils % 0.6 Neutrophils Absolute 5.24 Immature Granulocytes Absolute, Au* 0.04 Lymphocytes Absolute 1.83 Monocytes Absolute 0.47 Eosinophils Absolute 0.22 Basophils Absolute 0.05 URINALYSIS WITH REFLEX CULTURE AND MICROSCOPIC Narrative: The following orders were created for panel order Urinalysis with Reflex Culture and Microscopic. Procedure Abnormality Status --------- ------ Urinalysis with Reflex C...[[id number]] Abnormal Final result Extra Urine Alvarez Tube[[id number]] In process Please view results for these tests on the individual orders. EXTRA URINE ALVAREZ TUBE Medical Decision Making: Patient appears well nontoxic. Vital signs within normal limits. Asymptomatic. Hemoglobin normal. Patient will keep appointment with primary care and possible gynecology follow-up. Stable at time of discharge. Differential Diagnoses Considered: Menorrhagia, metrorrhagia, dysfunctional uterine bleeding Escalation of Care: Appropriate for discharge and follow-up with primary care and gynecology. Procedure Procedures Juan Lennon DO 05/19/24 0855 [facility] Work Phone: 12-18-2023 Hospital Discharge instructions Cece Miller MD - 12/18/2023 5:01 AM EDT May benefit from Tylenol and Motrin. The following attachments cannot be sent through Care Everywhere.Chest Pain Discharge Instructions (Azerbaijani)documented in this encounter [facility] Work Phone: 12-18-2023 Emergency department Note Patient is a 48-year-old female chief complaint of chest pain. Started at 8 PM last night which is just over 7 hours ago. Right-sided into the right scapula and into the right upper back. Worse with inspiration and position changes. Denies any cardiac risk factors. Has taken Tylenol without relief. Review of Systems Physical Exam Vitals and nursing note reviewed. Constitutional: General: She is not in acute distress. Appearance: She is well-developed. HENT: Head: Normocephalic and atraumatic. Eyes: Conjunctiva/sclera: Conjunctivae normal. Cardiovascular: Rate and Rhythm: Normal rate and regular rhythm. Heart sounds: No murmur heard. Pulmonary: Effort: Pulmonary effort is normal. No respiratory distress. Breath sounds: Normal breath sounds. Abdominal: Palpations: Abdomen is soft. Tenderness: There is no abdominal tenderness. Musculoskeletal: General: No swelling. Cervical back: Neck supple. Skin: General: Skin is warm and dry. Capillary Refill: Capillary refill takes less than 2 seconds. Neurological: Mental Status: She is alert. Psychiatric: Mood and Affect: Mood normal. Labs Reviewed BASIC METABOLIC PANEL - Abnormal Result Value Glucose 109 (*) Sodium 137 Potassium 3.7 Chloride 103 Bicarbonate 23 Anion Gap 15 Urea Nitrogen 10 Creatinine 0.58 eGFR >90 Calcium 9.3 TROPONIN I, HIGH SENSITIVITY - Normal Troponin I, High Sensitivity <3 Narrative: Less than 99th percentile of normal range cutoff- Female and children under 18 years old <14 ng/L; Male <21 ng/L: Negative Repeat testing should be performed if clinically indicated. Female and children under 18 years old 14-50 ng/L; Male 21-50 ng/L: Consistent with possible cardiac damage and possible increased clinical risk. Serial measurements may help to assess extent of myocardial damage. >50 ng/L: Consistent with cardiac damage, increased clinical risk and myocardial infarction. Serial measurements may help assess extent of myocardial damage. NOTE: Children less than 1 year old may have higher baseline troponin levels and results should be interpreted in conjunction with the overall clinical context. NOTE: Troponin I testing is performed using a different testing methodology at [facility] than at other [facility] hospitals. Direct result comparisons should only be made within the same method. LIPASE - Normal Lipase 26 Narrative: Venipuncture immediately after or during the administration of Metamizole may lead to falsely low results. Testing should be performed immediately prior to Metamizole dosing. HEPATIC FUNCTION PANEL - Normal Albumin 4.0 Bilirubin, Total 0.5 Bilirubin, Direct 0.1 Alkaline Phosphatase 57 ALT 31 AST 22 Total Protein 6.8 CBC WITH AUTO DIFFERENTIAL WBC 9.2 nRBC 0.0 RBC 4.54 Hemoglobin 13.4 Hematocrit 40.6 MCV 89 MCH 29.5 MCHC 33.0 RDW 12.4 Platelets 281 Neutrophils % 59.4 Immature Granulocytes %, Automated 0.3 Lymphocytes % 29.6 Monocytes % 7.3 Eosinophils % 2.6 Basophils % 0.8 Neutrophils Absolute 5.48 Immature Granulocytes Absolute, Automated 0.03 Lymphocytes Absolute 2.73 Monocytes Absolute 0.67 Eosinophils Absolute 0.24 Basophils Absolute 0.07 XR chest 1 view Final Result No radiographic evidence of acute cardiopulmonary pathology. MACRO: None. Signed by: Tremaine Mehta 12/18/2023 4:15 AM Dictation workstation: [id number] Procedures Medical Decision Making Patient presents with a chief complaint of 5 right-sided chest pain has been going on for about 7 hours. She did take some Tylenol and Motrin without any significant success. She states chest pain radiates into her upper back underneath her scapula. Is worse with movement. EKG negative for ST elevation. Troponin is negative for ACS. Repeat troponin unnecessary as she has had the pain for 7 hours. Laboratory studies assessing gallbladder were also negative. Chest x-ray negative for pneumonia. During my evaluation was pushing on the area where she said she had some discomfort with the heel of my hand and she felt a pop in that area that went into her back. I think this is most likely a rib out of place. Recommend anti-inflammatory medication and Tylenol. Patient can be discharged home. Patient's hypertension was most likely related to anxiety and she stated she was very nervous and it improved with Ativan. Amount and/or Complexity of Data Reviewed ECG/medicine tests: independent interpretation performed. Details: Sinus rhythm rate of 72, narrow complex, normal axis, no ST elevation or depression, no ectopy. Diagnoses as of 12/18/23 0502 Chest pain, unspecified type Cece Miller MD 12/18/23 050 documented in this encounter [facility] Work Phone: 12-18-2023 Physician Emergency department Note Patient is a 48-year-old female chief complaint of chest pain. Started at 8 PM last night which is just over 7 hours ago. Right-sided into the right scapula and into the right upper back. Worse with inspiration and position changes. Denies any cardiac risk factors. Has taken Tylenol without relief. Review of Systems Physical Exam Vitals and nursing note reviewed. Constitutional: General: She is not in acute distress. Appearance: She is well-developed. HENT: Head: Normocephalic and atraumatic. Eyes: Conjunctiva/sclera: Conjunctivae normal. Cardiovascular: Rate and Rhythm: Normal rate and regular rhythm. Heart sounds: No murmur heard. Pulmonary: Effort: Pulmonary effort is normal. No respiratory distress. Breath sounds: Normal breath sounds. Abdominal: Palpations: Abdomen is soft. Tenderness: There is no abdominal tenderness. Musculoskeletal: General: No swelling. Cervical back: Neck supple. Skin: General: Skin is warm and dry. Capillary Refill: Capillary refill takes less than 2 seconds. Neurological: Mental Status: She is alert. Psychiatric: Mood and Affect: Mood normal. Labs Reviewed BASIC METABOLIC PANEL - Abnormal Result Value Glucose 109 (*) Sodium 137 Potassium 3.7 Chloride 103 Bicarbonate 23 Anion Gap 15 Urea Nitrogen 10 Creatinine 0.58 eGFR >90 Calcium 9.3 TROPONIN I, HIGH SENSITIVITY - Normal Troponin I, High Sensitivity <3 Narrative: Less than 99th percentile of normal range cutoff- Female and children under 18 years old <14 ng/L; Male <21 ng/L: Negative Repeat testing should be performed if clinically indicated. Female and children under 18 years old 14-50 ng/L; Male 21-50 ng/L: Consistent with possible cardiac damage and possible increased clinical risk. Serial measurements may help to assess extent of myocardial damage. >50 ng/L: Consistent with cardiac damage, increased clinical risk and myocardial infarction. Serial measurements may help assess extent of myocardial damage. NOTE: Children less than 1 year old may have higher baseline troponin levels and results should be interpreted in conjunction with the overall clinical context. NOTE: Troponin I testing is performed using a different testing methodology at [facility] than at other [facility]. Direct result comparisons should only be made within the same method. LIPASE - Normal Lipase 26 Narrative: Venipuncture immediately after or during the administration of Metamizole may lead to falsely low results. Testing should be performed immediately prior to Metamizole dosing. HEPATIC FUNCTION PANEL - Normal Albumin 4.0 Bilirubin, Total 0.5 Bilirubin, Direct 0.1 Alkaline Phosphatase 57 ALT 31 AST 22 Total Protein 6.8 CBC WITH AUTO DIFFERENTIAL WBC 9.2 nRBC 0.0 RBC 4.54 Hemoglobin 13.4 Hematocrit 40.6 MCV 89 MCH 29.5 MCHC 33.0 RDW 12.4 Platelets 281 Neutrophils % 59.4 Immature Granulocytes %, Automated 0.3 Lymphocytes % 29.6 Monocytes % 7.3 Eosinophils % 2.6 Basophils % 0.8 Neutrophils Absolute 5.48 Immature Granulocytes Absolute, Automated 0.03 Lymphocytes Absolute 2.73 Monocytes Absolute 0.67 Eosinophils Absolute 0.24 Basophils Absolute 0.07 XR chest 1 view Final Result No radiographic evidence of acute cardiopulmonary pathology. MACRO: None. Signed by: Tremaine Mehta 12/18/2023 4:15 AM Dictation workstation: [id number] Procedures Medical Decision Making Patient presents with a chief complaint of 5 right-sided chest pain has been going on for about 7 hours. She did take some Tylenol and Motrin without any significant success. She states chest pain radiates into her upper back underneath her scapula. Is worse with movement. EKG negative for ST elevation. Troponin is negative for ACS. Repeat troponin unnecessary as she has had the pain for 7 hours. Laboratory studies assessing gallbladder were also negative. Chest x-ray negative for pneumonia. During my evaluation was pushing on the area where she said she had some discomfort with the heel of my hand and she felt a pop in that area that went into her back. I think this is most likely a rib out of place. Recommend anti-inflammatory medication and Tylenol. Patient can be discharged home. Patient's hypertension was most likely related to anxiety and she stated she was very nervous and it improved with Ativan. Amount and/or Complexity of Data Reviewed ECG/medicine tests: independent interpretation performed. Details: Sinus rhythm rate of 72, narrow complex, normal axis, no ST elevation or depression, no ectopy. Diagnoses as of 12/18/23 0502 Chest pain, unspecified type Cece Miller MD 12/18/23 0502 [facility] Work Phone: 11-05-2022 Discharge summary Note Date/Time November 05, 2022 1:04pm [facility] Medical Records Department [address] [place] [address] Instructions for Home/Discharge Instructions 11/05/22 1303 MR#: [id number] Acct: [id number] Name: NIA PRYOR Rep #:[id number] : 1975 47 From: Toro Valdovinos DPM PCP: Dr. Mónica Davis, DO Status:ADM BRUCE Discharge Instructions Activity Discharge Activity: May Not Drive and Use Walker Weight Bearing Status: No weight bearing (No weightbearing right foot.) Keep extremity elevated above heart level: Right Leg (Keep right foot elevated for at least 50 minutes of every hour using pillows.) Dressing / Incision Call your doctor if your incision/area has: Continuous Slow Oozing, Sudden Increased Bleeding and Foul Smelling Discharge Call your doctor if you observe: Fever of 101 or Higher, Shortness of breath, Chest pain, Increased palpitations (irregular heartbeat) and Calf discomfort Remove Dressing in: do not remove dressing Cleanse incision/area with: Keep Dressing Clean & Dry Follow Up Care Please Follow Up With: Toro Valdovinos DPM When: Next Monday sooner if needed. Call [facility] if needed- [phone] Test Results: Test results from this visit will be discussed in further detail at your follow-up appointment, if applicable. Discharge Plan Admission Admit Date/Time: 11/03/22 14:50 Attending Provider: Toro Valdovinos Primary Care Provider: Mónica Davis Consulting Providers: Logan Toure Discharge Orders/Prescriptions Prescriptions: New tramadol 50 mg Tablet 50 mg PO Q4H PRN PRN (Reason: Pain Score 4-10) Qty: 30 0RF Eliquis 2.5 mg tablet 2.5 mg PO Q12H Qty: 60 0RF acetaminophen [Tylenol Extra Strength] 500 mg tablet 500 mg PO Q4H PRN (Reason: pain) Qty: 10 0RF Continued omega 0-wqq-brz-fish oil [Fish Oil] 360-1,200 mg capsule,delayed release(DR/EC) 3 cap PO DAILY Label Comments: stopped for surgery per instructions metformin 500 MG tablet 1,000 mg PO DAILY multivitamin with minerals 1 EACH tablet 1 ea PO DAILY fexofenadine 180 MG tablet 180 mg PO DAILY Discontinued meloxicam 15 mg tablet 15 mg PO DAILY Referrals / Follow Up: Mónica Davis DO [Primary Care Provider] - Disposition Disposition (needs filled in before D/C Order can be placed): Home, Self Care 11/05/22 1308<Electronically signed by Toro Valdovinos DPM>Toro Valdovinos DPM CC: Dr. Mónica Davis DO; Dr. Logan Toure DO ~ Signed [facility] Work Phone: 1(557) 956-301001-28-[address] Millerabimbola [facility] November 05, 2022 1:08pm Note Date/Time November 05, 2022 1 :08pm [facility] Medical Records Department [address] [place] [address] Discharge Summary 11/05/22 1308 MR#: [id number] Acct: [id number] Name: NIA PRYOR Rep #:[id number] : 1975 47 From: Toro Valdovinos DPM PCP: Dr. Mónica Davis DO Status:ADM BRUCE Location: [place] [address] Providers Date of Admission: 11/03/22 Primary Care Physician: Dr. Mónica Davis DO Reason For Visit: RT TENDON DEBRIDE & REPAIR, ARTHRODESIS Diagnosis Discharge Diagnosis (1) Arthritis of right ankle: Status: Acute Code(s): M19.071 - Primary osteoarthritis, right ankle and foot (2) Strain of muscle(s) and tendon(s) of peroneal muscle group at lower leg level, right leg, subsequent encounter: Status: Acute Code(s): S86.311D - Strain of muscle(s) and tendon(s) of peroneal muscle group at lower leg level, right leg, subsequent encounter (3) Sprain of other ligament of right ankle, subsequent encounter: Status: Acute Code(s): S93.491D - Sprain of other ligament of right ankle, subsequent encounter (4) Peroneal tendinitis, right leg: Status: Acute Code(s): M76.71 - Peroneal tendinitis, right leg (5) Acute right ankle pain: Status: Acute Code(s): M25.571 - Pain in right ankle and joints of right foot Plan Evaluation performed. Findings c/w normal post op course. No weightbearing right foot. Keep foot elevated. Pain management: Tramadol, Acetaminophen - she is ready for discharge. DVT Prophylaxis: Start Lovenox 40mg subc daily. Switch to Eliquis 2.5mg PO q 12 hours. Antibiotic prophylaxis: Cefazolin 1g IV q 8 hours - will discontinue at this time. Plan to discharge home today. Medications at Discharge Home Medications omega-3 360 qr-isa-lgy-fish oil 1,200 mg capsule,delayed release (Fish Oil) 3 cap PO DAILY 04/25/19 metformin 500 mg tablet 1,000 mg PO DAILY polycystic ovarian syndro 02/10/20 multivitamin with minerals 1 ea PO DAILY 02/10/20 fexofenadine 180 mg tablet 180 mg PO DAILY allergies 05/08/20 acetaminophen 500 mg tablet (Tylenol Extra Strength) 500 mg PO Q4H PRN pain #10 tabs 11/05/22 apixaban 2.5 mg tablet (Eliquis) 2.5 mg PO Q12H #60 tabs 11/05/22 tramadol 50 mg tablet 50 mg PO Q4H PRN PRN Pain Score 4-10 #30 tabs 11/05/22 Weight / BMI Weight Weight: 89.9 kg Body Mass Index (BMI) 31.9 ABG / Lab / Microbiology Data Result Diagrams: 11/04/22 07:11 11/04/22 07:11 D/C Instructions Weight Bearing Status: No weight bearing (No weightbearing right foot.) Keep extremity elevated above heart level: Right Leg (Keep right foot elevated for at least 50 minutes of every hour using pillows.) Call your doctor if your incision/area has: Continuous Slow Oozing, Sudden Increased Bleeding and Foul Smelling Discharge Call your doctor if you observe: Fever of 101 or Higher, Shortness of breath, Chest pain, Increased palpitations (irregular heartbeat) and Calf discomfort Cleanse incision/area with: Keep Dressing Clean & Dry Please Follow Up With: Toro Valdovinos DPM When: Next Monday sooner if needed. Call [facility] if needed- [phone] Meaningful Use Info Meaningful Use Diagnoses (Choose all that apply): None applicable Discharge Plan Admission Admit Date/Time: 11/03/22 14:50 Attending Provider: Toro Valdovinos Primary Care Provider: Mónica Davis Consulting Providers: Logan Toure Discharge Orders/Prescriptions Prescriptions: New tramadol 50 mg Tablet 50 mg PO Q4H PRN PRN (Reason: Pain Score 4-10) Qty: 30 0RF Eliquis 2.5 mg tablet 2.5 mg PO Q12H Qty: 60 0RF acetaminophen [Tylenol Extra Strength] 500 mg tablet 500 mg PO Q4H PRN (Reason: pain) Qty: 10 0RF Continued omega 7-dat-yhk-fish oil [Fish Oil] 360-1,200 mg capsule,delayed release(DR/EC) 3 cap PO DAILY Label Comments: stopped for surgery per instructions metformin 500 MG tablet 1,000 mg PO DAILY multivitamin with minerals 1 EACH tablet 1 ea PO DAILY fexofenadine 180 MG tablet 180 mg PO DAILY Discontinued meloxicam 15 mg tablet 15 mg PO DAILY Referrals / Follow Up: Mónica Davis DO [Primary Care Provider] - Disposition Disposition (needs filled in before D/C Order can be placed): Home, Self Care 11/05/22 1308 <Electronically signed by Toro Valdovinos DPM> Cosigner Signature (if applicable): CC: DIANA Valdovinos; Dr. Mónica Davis DO~ Signed [facility] Work Phone: 1(653) 634-804001-28-2023 [facility] Medical Records Department [address] [place] [address] Discharge Summary 11/05/22 1308 MR#: [id number] Acct: [id number] Name: NIA PRYOR Rep #: [id number] : 1975 47 From: Toro Valdovinos DPM PCP: Dr. Mónica Davis DO Status:ADM BRUCE Location: [place] [address] Providers Date of Admission: 11/03/22 Primary Care Physician: Dr. Mónica Davis DO Reason For Visit: RT TENDON DEBRIDE REPAIR, ARTHRODESIS Diagnosis Discharge Diagnosis (1) Arthritis of right ankle: Status: Acute Code(s): M19.071 - Primary osteoarthritis, right ankle and foot (2) Strain of muscle(s) and tendon(s) of peroneal muscle group at lower leg level, right leg, subsequent encounter: Status: Acute Code(s): S86.311D - Strain of muscle(s) and tendon(s) of peroneal muscle group at lower leg level, right leg, subsequent encounter (3) Sprain of other ligament of right ankle, subsequent encounter: Status: Acute Code(s): S93.491D - Sprain of other ligament of right ankle, subsequent encounter (4) Peroneal tendinitis, right leg: Status: Acute Code(s): M76.71 - Peroneal tendinitis, right leg (5) Acute right ankle pain: Status: Acute Code(s): M25.571 - Pain in right ankle and joints of right foot Plan Evaluation performed. Findings c/w normal post op course. No weightbearing right foot. Keep foot elevated. Pain management: Tramadol, Acetaminophen - she is ready for discharge. DVT Prophylaxis: Start Lovenox 40mg subc daily. Switch to Eliquis 2.5mg PO q 12 hours. Antibiotic prophylaxis: Cefazolin 1g IV q 8 hours - will discontinue at this time. Plan to discharge home today. Medications at Discharge Home Medications omega-3 360 qh-brn-rrb-fish oil 1,200 mg capsule,delayed release (Fish Oil) 3 cap PO DAILY 04/25/19 metformin 500 mg tablet 1,000 mg PO DAILY polycystic ovarian syndro 02/10/20 multivitamin with minerals 1 ea PO DAILY 02/10/20 fexofenadine 180 mg tablet 180 mg PO DAILY allergies 05/08/20 acetaminophen 500 mg tablet (Tylenol Extra Strength) 500 mg PO Q4H PRN pain #10 tabs 11/05/22 apixaban 2.5 mg tablet (Eliquis) 2.5 mg PO Q12H #60 tabs 11/05/22 tramadol 50 mg tablet 50 mg PO Q4H PRN PRN Pain Score 4-10 #30 tabs 11/05/22 Weight / BMI Weight Weight: 89.9 kg Body Mass Index (BMI) 31.9 ABG / Lab / Microbiology Data Result Diagrams: 11/04/22 07:11 11/04/22 07:11 D/C Instructions Weight Bearing Status: No weight bearing (No weightbearing right foot.) Keep extremity elevated above heart level: Right Leg (Keep right foot elevated for at least 50 minutes of every hour using pillows.) Call your doctor if your incision/area has: Continuous Slow Oozing, Sudden Increased Bleeding and Foul Smelling Discharge Call your doctor if you observe: Fever of 101 or Higher, Shortness of breath, Chest pain, Increased palpitations (irregular heartbeat) and Calf discomfort Cleanse incision/area with: Keep Dressing Clean Dry Please Follow Up With: Toro Valdovinos DPM When: Next Monday sooner if needed. Call [facility] if needed - [phone] Meaningful Use Info Meaningful Use Diagnoses (Choose all that apply): None applicable Discharge Plan Admission Admit Date/Time: 11/03/22 14:50 Attending Provider: Toro Valdovinos Primary Care Provider: Mónica Davis Consulting Providers: Logan Toure Discharge Orders/Prescriptions Prescriptions: New tramadol 50 mg Tablet 50 mg PO Q4H PRN PRN (Reason: Pain Score 4-10) Qty: 30 0RF Eliquis 2.5 mg tablet 2.5 mg PO Q12H Qty: 60 0RF acetaminophen [Tylenol Extra Strength] 500 mg tablet 500 mg PO Q4H PRN (Reason: pain) Qty: 10 0RF Continued omega 9-iya-gyb-fish oil [Fish Oil] 360-1,200 mg capsule,delayed release(DR/EC) 3 cap PO DAILY Label Comments: stopped for surgery per instructions metformin 500 MG tablet 1,000 mg PO DAILY multivitamin with minerals 1 EACH tablet 1 ea PO DAILY fexofenadine 180 MG tablet 180 mg PO DAILY Discontinued meloxicam 15 mg tablet 15 mg PO DAILY Referrals / Follow Up: Mónica Davis DO [Primary Care Provider] - Disposition Disposition (needs filled in before D/C Order can be placed): Home, Self Care 11/05/22 1308 Cosigner Signature (if applicable): CC: DIANA Valdovinos; Dr. Mónica Davis DO [facility] Valdovinos [facility] November 05, 2022 1:02pm Note Date/Time November 05, 2022 1 :02pm [facility] Medical Records Department [address] [place] [address] Progress Note 11/05/22 1300 MR#: [id number] Acct: [id number] Name: NIA PRYOR Rep #:[id number] : 1975 47 From: Toro Valdovinos DPM PCP: Dr. Mónica Davis DO Status:ADM BRUCE Location: [place] [id number] Subjective Subjective Patient was seen today for follow up on right foot. She relates block wore off and she had a lot of pain overnight, but relates she was able to get some sleep.She is resting in chair with foot elevated. No other complaints. No f/c/n/v. Objective Data Objective Data Vital Signs: Vital Signs Temp Pulse Resp BP Pulse Ox O2 Del Method O2 Flow Rate 98.7 F 80 16 133/67 H 98 Room Air 4 11/05/22 09:07 11/05/22 09:07 11/05/22 09:07 11/05/22 09:07 11/05/22 09:07 11/05/22 09:19 11/03/22 15:00 Oxygen Flow Rate (L/min) 4 Oxygen Delivery Method Room Air Weight: 89.9 kg Body Mass Index (BMI) 31.9 Intake & Output: Intake and Output for Last 24 Hours 11/03/22 11/04/22 11/05/22 23:59 23:59 23:59 Intake Total 1160 / 1160 464.75 / 464.75 1050 / 1050 Balance 1160 / 1160 464.75 / 464.75 1050 / 1050 Lab / Micro Data Result Diagrams: 11/04/22 07:11 11/04/22 07:11 Physical Exam Narrative Right lower extremity with dressing/splint clean, dry and intact. No complications. CFT < 2 seconds to all toes on right foot. She is able to wiggle all toes on right foot. No calf pain bilateral. Assessment & Plan Assessment/Plan (1) Arthritis of right ankle: (2) Strain of muscle(s) and tendon(s) of peroneal muscle group at lower leg level, right leg, subsequent encounter: (3) Sprain of other ligament of right ankle, subsequent encounter: (4) Peroneal tendinitis, right leg: (5) Acute right ankle pain: PLAN: Plan Evaluation performed. Findings c/w normal post op course. No weightbearing right foot. Keep foot elevated. Pain management: Tramadol, Acetaminophen - she is ready for discharge. DVT Prophylaxis: Start Lovenox 40mg subc daily. Switch to Eliquis 2.5mg PO q 12 hours. Antibiotic prophylaxis: Cefazolin 1g IV q 8 hours - will discontinue at this time. Plan to discharge home today. 11/05/22 1302 <Electronically signed by Toro Valdovinos DPM> Toro Valdovinos DPM Cosigner Signature (if applicable): CC: ~ Signed [facility] Work Phone: 1(627) 894-413101-27-[address] Valdovinos [facility] November 04, 2022 6:27pm Note Date/Time November 04, 2022 6 :27pm [facility] Medical Records Department [address] [place] [address] Progress Note 11/04/22 1825 MR#: [id number] Acct: [id number] Name: NIA PRYOR Rep #:[id number] : 1975 47 From: Toro Valdovinos DPM PCP: Dr. Mónica Davis, DO Status:ADM BRUCE Location: [place] [id number] Subjective Subjective Patient was seen today for follow up on right foot/ankle surgery. She relates overall she is doing well, relates block is not completely worn off. No f/c/n/v. Objective Data Objective Data Vital Signs: Vital Signs Temp Pulse Resp BP Pulse Ox O2 Del Method O2 Flow Rate 97.6 F L 75 18 123/64 H 100 Room Air 4 11/04/22 16:22 11/04/22 16:22 11/04/22 16:22 11/04/22 16:22 11/04/22 16:22 11/04/22 16:22 11/03/22 15:00 Oxygen Flow Rate (L/min) 4 Oxygen Delivery Method Room Air Weight: 89.9 kg Body Mass Index (BMI) 31.9 Intake & Output: Intake and Output for Last 24 Hours 11/02/22 11/03/22 11/04/22 23:59 23:59 23:59 Intake Total 1160 / 1160 414.75 / 414.75 Balance 1160 / 1160 414.75 / 414.75 Lab / Micro Data Result Diagrams: 11/04/22 07:11 11/04/22 07:11 Labs: Laboratory Results - last 24 hr 11/04/22 07:11: WBC 14.3 H, RBC 4.29, Hgb 12.4, Hct 38.7, MCV 90.2, MCH 28.9, MCHC 32.0, RDW Std Deviation 40.7, RDW Coeff of Radha 12.4, Plt Count 332, MPV 9.9, Immature Gran % (Auto) 0.600, Neut % (Auto) 80.2 H, Lymph % (Auto) 12.2 L, [place] % (Auto) 6.9, Eos % (Auto) 0.0, Baso % (Auto) 0.1, Absolute Neuts (auto) 11.5 H, Absolute Lymphs (auto) 1.74, Nucleated RBC % 0 11/04/22 07:11: Sodium 141, Potassium 3.6, Chloride 106, Carbon Dioxide 25.0, Anion Gap 10, BUN 10, Creatinine 0.78, Estim Creat Clear Calc 83.47, Est GFR (MDRD) Af Amer 101, Est GFR (MDRD) Non-Af 84, BUN/Creatinine Ratio 12.8, [id number] H, Calcium 8.7, Total Bilirubin 0.60, AST 17, ALT 27, Alkaline Phosphatase 61, Total Protein 6.9, Albumin 3.2, Globulin 3.7, Albumin/Globulin Ratio 0.9 Radiography Diagnostic Testing: Radiology Impression Ankle X-Ray 11/03/22 12:55 IMPRESSION: Intraoperative postop images of right ankle, see separate operative report. Electronically Signed: Logan Muller MD at 5:56 EST , Physical Exam Narrative Right lower extremity with dressing/splint clean, dry and intact. No complications. CFT < 2 seconds to all toes on right foot. She is able to wiggle all toes on right foot. Assessment & Plan Assessment/Plan (1) Arthritis of right ankle: (2) Strain of muscle(s) and tendon(s) of peroneal muscle group at lower leg level, right leg, subsequent encounter: (3) Sprain of other ligament of right ankle, subsequent encounter: (4) Peroneal tendinitis, right leg: (5) Acute right ankle pain: PLAN: Plan No weightbearing right foot. Keep foot elevated. Pain management: Tramadol, Acetaminophen, Gabapentin DVT Prophylaxis: Start Lovenox 40mg subc daily. Antibiotic prophylaxis: Cefazolin 1g IV q 8 hours. 11/04/221826 <Electronically signed by Toro Valdovinos DPM> Toro Valdovinos DPM Cosigner Signature (if applicable): CC: ~ Signed [facility] Work Phone: 1(320) 248-691301-26-2023 History and physical note Author Dr. Valdovinos [facility] November 03, 2022 3:03pm Note Date/Time November 03, 2022 3 :03pm [facility] Medical Records Department [address] [place] [address] History & Physical Exam 11/03/22 1500 MR#: [id number] Acct: [id number] Name: NIA PRYOR Rep #:[id number] : 1975 47 From: Toro Valdovinos DPM PCP: Dr. Mónica Davis, DO Status:[facility] Location: [place] [address] HPI - General General Date of Admission: 11/03/22 HPI Narrative NIA PRYOR, is a 47 F who presents s/p right foot/ankle surgery. Patient did well with the surgery. She is admitted for post op pain control, antibiotic prophylaxis, and management. [facility] Medical History (Updated 11/03/22 @ 15:[address] Toro Valdovinos DPM) Abrasion Arthritis Discoloration of skin Endometriosis determined by laparoscopy (~02/11/20) Infertility Injury of head and neck Lipoma of back PCOS (polycystic ovarian syndrome) Wears contact lenses Wears glasses Home Medications meloxicam 15 mg tablet 15 mg PO DAILY 04/25/19 [History Last Taken 10/25/22] omega-3 360 vk-rzn-qgv-fish oil 1,200 mg capsule,delayed release (Fish Oil) 3 cap PO DAILY 04/25/19 [History Last Taken 10/31/22] metformin 500 mg tablet 1,000 mg PO DAILY polycystic ovarian syndro 02/10/20 [History Last Taken Unknown] multivitamin with minerals 1 ea PO DAILY 02/10/20 [History Last Taken Unknown] fexofenadine 180 mg tablet 180 mg PO DAILY allergies 05/08/20 [History Last Taken Unknown] Allergy/AdvReac Type Severity Reaction Status Date / Time oxycodone Allergy Mild rash Verified 11/03/22 10:48 hydrocodone Allergy Itching Verified 11/03/22 10:48 Family History Father Diabetes Mother Cancer uterine Aunt Breast cancer Grandmother Asthma Surgical History H/O laparoscopy (~02/11/20) H/O ovarian cystectomy (~02/11/20) S/P excision of lipoma Social History (Updated 06/07/20 @ 12:[address] Kamlesh Lang MD) number of children: 0 current occupational status: employed current occupation: [employer] Smoking Status: Never smoker alcohol intake: never substance use type: does not use diet: low carbohydrate caffeine: Yes (4) Type: coffee and tea seatbelt use: always do you feel safe at home: Yes additional social history: Danielito CHAKRABORTY Vital Signs Vital Signs Vital Signs: 11/03/22 10:44 11/03/22 10:44 Temperature 98.9 F Temperature Source Temporal Pulse Rate 73 Respiratory Rate 16 Respiratory Pattern Normal Blood Pressure 130/79 H Blood Pressure Mean 96 Blood Pressure Source Monitor Blood Pressure Position Semi-Fowlers Blood Pressure Location Left Arm Pulse Ox 98 Oxygen Delivery Method Room Air Weight Weight: 89.9 kg Body Mass Index (BMI) 31.9 Physical Exam Narrative Right lower extremity with dressing\splint clean, dry and intact. No complications. Results Lab / Micro Data Labs: Laboratory Results - last 24 hr 11/03/22 10:43: Urine Test Negative Assessment & Plan Assessment/Plan (1) Arthritis of right ankle: (2) Strain of muscle(s) and tendon(s) of peroneal muscle group at lower leg level, right leg, subsequent encounter: (3) Sprain of other ligament of right ankle, subsequent encounter: (4) Peroneal tendinitis, right leg: (5) Acute right ankle pain: PLAN: Plan No weightbearing right foot. Keep foot elevated. Pain management: Tramadol, Acetaminophen, Gabapentin DVT Prophylaxis: Start Lovenox 40mg subc tomorrow Antibiotic prophylaxis: Cefazolin 1g IV q 8 hours. 11/03/22 1503 <Electronically signed by Toro Valdovinos DPM> Cosigner Signature (if applicable): CC: DIANA Valdovinos; Dr. Mónica Davis DO~ Signed [facility] Work Phone: [phone] [facility] Medical Records Department [address] [place] [address] History Physical Exam 11/03/22 1500 MR#: [id number] Acct: [id number] Name: NIA PRYOR Rep #: [id number] : 1975 47 From: Toro Valdovinos DPM PCP: Dr. Mónica Davis DO Status:REG [facility] Location: [place] [address] HPI - General General Date of Admission: 11/03/22 HPI Narrative NIA PRYOR, is a 47 F who presents s/p right foot/ankle surgery. Patient did well with the surgery. She is admitted for post op pain control, antibiotic prophylaxis, and management. [facility] Medical History (Updated 11/03/22 @ 15:[address] Toro Valdovinos DPM) Abrasion Arthritis Discoloration of skin Endometriosis determined by laparoscopy ( 02/11/20) Infertility Injury of head and neck Lipoma of back PCOS (polycystic ovarian syndrome) Wears contact lenses Wears glasses Home Medications meloxicam 15 mg tablet 15 mg PO DAILY 04/25/19 [History Last Taken 10/25/22] omega-3 360 ki-wqz-plo-fish oil 1,200 mg capsule,delayed release (Fish Oil) 3 cap PO DAILY 04/25/19 [History Last Taken 10/31/22] metformin 500 mg tablet 1,000 mg PO DAILY polycystic ovarian syndro 02/10/20 [History Last Taken Unknown] multivitamin with minerals 1 ea PO DAILY 02/10/20 [History Last Taken Unknown] fexofenadine 180 mg tablet 180 mg PO DAILY allergies 05/08/20 [History Last Taken Unknown] Allergy/AdvReac Type Severity Reaction Status Date / Time oxycodone Allergy Mild rash Verified 11/03/22 10:48 hydrocodone Allergy Itching Verified 11/03/22 10:48 Family History Father Diabetes Mother Cancer uterine Aunt Breast cancer Grandmother Asthma Surgical History H/O laparoscopy ( 02/11/20) H/O ovarian cystectomy ( 02/11/20) S/P excision of lipoma Social History (Updated 06/07/20 @ 12:[address] Kamlesh Lang MD) number of children: 0 current occupational status: employed current occupation: [employer] Smoking Status: Never smoker alcohol intake: never substance use type: does not use diet: low carbohydrate caffeine: Yes (4) Type: coffee and tea seatbelt use: always do you feel safe at home: Yes additional social history: Danielito CHAKRABORTY Vital Signs Vital Signs Vital Signs: 11/03/22 10:44 11/03/22 10:44 Temperature 98.9 F Temperature Source Temporal Pulse Rate 73 Respiratory Rate 16 Respiratory Pattern Normal Blood Pressure 130/79 H Blood Pressure Mean 96 Blood Pressure Source Monitor Blood Pressure Position Semi-Fowlers Blood Pressure Location Left Arm Pulse Ox 98 Oxygen Delivery Method Room Air Weight Weight: 89.9 kg Body Mass Index (BMI) 31.9 Physical Exam Narrative Right lower extremity with dressing splint clean, dry and intact. No complications. Results Lab / Micro Data Labs: Laboratory Results - last 24 hr 11/03/22 10:43: Urine Test Negative Assessment Plan Assessment/Plan (1) Arthritis of right ankle: (2) Strain of muscle(s) and tendon(s) of peroneal muscle group at lower leg level, right leg, subsequent encounter: (3) Sprain of other ligament of right ankle, subsequent encounter: (4) Peroneal tendinitis, right leg: (5) Acute right ankle pain: PLAN: Plan No weightbearing right foot. Keep foot elevated. Pain management: Tramadol, Acetaminophen, Gabapentin DVT Prophylaxis: Start Lovenox 40mg subc tomorrow Antibiotic prophylaxis: Cefazolin 1g IV q 8 hours. 11/03/22 1503 Cosigner Signature (if applicable): CC: DPBetito Valdovinos; Dr. Mónica Davis, DO [facility]ignedWMet[facility] CenterEvaluation [facility]* Diagnosis Onset Date Resolution Status Acute right ankle pain acute Arthritis of right ankle acu te Peroneal tendinitis, right leg acute Sprain of other ligament of right ankle, subsequent encounter acute [id number] acute [facility] Work Phone: Evaluation noteNo assessment information available [facility] Work Phone: Evaluation note* Diagnosis Chest pain, unspecified type- Primary documented in this encounter [facility] Work Phone: Evaluation note* Diagnosis Menorrhagia with irregular cycle- Primary documented in this encounter [facility] Work Phone: History of Present illness Narrative* Advancing ther- ex as indicated to progress functional strength for ankle stability and balance. Patient voices compliance with current HEP. She denies increase in ankle pain or edema during/followingtreatment. * Response to treatment: no change in pain, improved strength, improved flexibility and improved knowledge and understanding of condition. [facility] Work Phone: History of Present illness Narrative* Patient identity confirmed today with name/. used #1 ball for baps circles due to patient discomfort; added to HEP and given handout; concentrated on closed chain activities with shorter session today. * Response to treatment: no change in pain, improved strength, improved flexibility and improved knowledge and understanding of condition. [facility] Work Phone: History of Present illness Narrative* Patient identified by name and * Patient appropriately challenged. Zack's improvements in foot intrinsics strength, however is stilllimited in R ankle ROM. Does demo slight difficulty with balance this date requiring intermittent fingertip touching. Zack's no increased symptoms throughout session. Education provided for symptom ma nagement at home with patient zack'g understanding. [facility] Work Phone: History of Present illness NarrativePatient identity confirmed today with name/. clinic ex done without brace today; added to and modified HEP for HEP emphasis; difficulty with lunges and SLS today. [facility] Work Phone: History of Present illness NarrativePatient identity confirmed today with name/. see goals; added to HEP today; still difficulty with lunge (L lead) and also difficulty with heel/toe walk. [facility] Work Phone: Hospital Discharge instructions* Attachments The following attachments cannot be sent through Care Everywhere. * Heavy Periods ED ([place]zerbaijani) [facility] Summary Purpose Family History Relationship Condition Age at Onset Recorded Date/T ellen father Diabetes mellitus Unknown mother Malignant neoplasm Unknown aunt Malignant neoplasm of breast Unknown grandmother Asthma Unknown Advance Directives Advance Directive Response Recorded Date/ Time Living Will No November 03 4:33pm Power of Elementary School Teacher No November 03, 2022 4:33pm Advance Directive Response Recorded Date/ Time Living Will No November 10 10:40am Power of Elementary School Teacher No November 10, 2022 10:40am Advance Directive Response Recorded Date/ Time Living Will No November 10 9:40am Power of Elementary School Teacher No November 10, 2022 9:40am Chief Complaint and Reason for Visit Chief Complaint RT TENDON DEBRIDE & REPAIR, ARTHRODESIS Reason for Visit Acute right ankle pa in Arthritis of right ankle Peroneal tendinitis, right leg Sprain of other ligament of right ankle, subsequent encounter [id number] Chief Complaint RIGHT ANKLE SPRAIN Chief Complaint RIGHT ANKLE SPRAIN RIGHT ANKLE PAIN S/P FUSION Chief Complaint RIGHT ANKLE PAIN S/P FUSION PAIN IN RIGHT ANKLE HINDFOOT Additional Source Comments INFORMATION SOURCE (unrecogn ized section and content) DATE CREATED AUTHOR 08/06/2018 [facility] DATE CREATED AUTHOR AUTHOR'S ORGANIZ ATION 10/30/2019 [facility] DATE CREATED AUTHOR AUTHOR'S ORGANIZ ATION 11/21/2022 [facility] DATE CREATED AUTHOR AUTHOR'S ORGANIZ ATION 04/18/2023 [facility] DATE CREATED AUTHOR AUTHOR'S ORGANIZ ATION 05/20/2023 [facility] DATE CREATED AUTHOR AUTHOR'S ORGANIZ ATION 12/24/2023 [facility] DATE CREATED AUTHOR AUTHOR'S ORGANIZ ATION 05/20/[address] [facility] <item> Privacy Markings (unrecogniz ed section and content) Section Author: Larissa Ko PROHIBITION ON REDISCLOSURE OF CONFIDENTIAL INFORMATION This notice accompanies a disclosure of information concerning a client made to you with the consent of such client. Care Teams (unrecognized sec tion and content) Team Status: Active Member Role Status Dates Dr. Móncia Dvais DO Family Provider Active Dr. Mónica Davis DO Primary Care Provider Active Team Status: Inactive Member Role Status Dates Dr. Mónica Davis DO Primary Care Provider Active Dr. Toro Valdovinos DPM Admit Provider , Attending Provider, Referring Provider Active Dr. Logan Toure , Other Provider Active Team Status: Active Member Role Status Dates Dr. Mónica Davis DO Primary Care Provider, Attending Bruno wynn Active Team Status: Inactive Member Role Status Dates Dr. Mónica Davis DO Primary Care Provider, Attending Bruno wynn Active Team Status: Inactive Member Role Status Dates Dr. Mónica Davis DO Primary Care Provider Active Dr. Toro Valdovinos DPM Attending Provider, Mar nixon Provider Active [employer] Relationship Specialty Start Date End Date Mónica Davis DO [address] [place] [address] PCP - General Family Medicine 12/18/23 [employer] Relationship Specialty Start Date End Date Mónica Davis DO [address] [place] [address] PCP - General Family Medicine 12/18/23 [employer] Relationship Specialty Start Date End Date Mónica Davis DO [address] [place] [address] PCP - General Family Medicine 12/18/23 Goals (unrecognized section and content) Goals may be documented in a n alternate sectionGoals may be documented in an alternate sectionGoals may be documented in an alternate section Reason for Visit (unrecogniz ed section and content) Reason Comments Chest Pain Pt complaint of righ t shoulder pain that radiates to chest and back starting at 1999 yesterday. Pt states she is having SOB and nausea. Pain is worse with movement. Reason Comments Vaginal Bleeding Patient complains of vaginal bleeding for 13 days, states she is going through a pad every 2 hours. Denies dizziness or shortness of breath Scheduled Active and Recently Administ ered Medications (unrecognized section and content) Medication Order 12/16/2023 12/17/2023 12/18/2023 ketorolac (Toradol) injection 15 mg (COMPLETED) 15 mg, intravenous, Once, On Mon12/18/23 at 0445, For 1 dose 0445 (Given - Provid er: Dayron Little RN) LORazepam (Ativan) injection 1 mg (COMPLETED) 1 mg, intravenous, Administer over 5 Minutes, Once, On Mon12/18/23 at 0340, For 1 dose, Maximum rate of 2 mg/min. 0340 (Given - Provid er: Dayron Little RN) FOR RECORDS PERTAINING TO PATIENTS WHO ARE [...] BE BASED ON THE PRIMARY CLINICAL RECORDS. [facility]. provides no warranty or guarantee of the accuracy or completeness of information in this document.
--- OUTSIDE RECORDS SUMMARY | 2025-04-24 18:05 | XMS RPT_ITS | CCD ---
Author Organization [facility] Team Providers Care Mailroom Personnel Name Role Phone Herrera, Haley Unavailable Unavailable [...] HYDROcodone; Translations: [HYDROCODONE] Drug Allergy 11-03-2022 Unknown [facility] (11 sources) oxyCODONE; Translations: [OXYCODONE] Drug Allergy 11-03-2022 Unknown [facility] (1 source) HYDROcodone Drug Allergy 11-10-2022 [facility] (1 source) oxyCODONE Drug Allergy 11-10-2022 [facility] Medications Current Medications Medication Drug Class(es) [...] EACH PO DAILY February 09, 2020 11:00pm [place] 3-Aar-Ulc-Fish Oil (Fish Oil) 360-1,200 mg capsule,delayed release(DR/EC) (5 sources) Start: 04-25-2019 take 360-1200 mg by mouth once daily [place] 0-Mri-Btv-Fish Oil (Fish Oil) 360-1,200 mg capsule,delayed release(DR/EC) Active 3 CAP PO DAILY April 25, 2019 12:00am Start: 04-25-2019 take 360-1200 mg by mouth once daily [place] 2-Uhr-Cik-Fish Oil (Fish Oil) 360-1,200 mg capsule,delayed release(DR/EC) [...] Status: Final result Abnormal: No Resulting Lab: [facility] [id number] [place] [address] CULTURE Normal genitourinary avtar Normal [facility] Comment on above: Performed By: #### 2 4321-2 #### LUZ MARIA SOLOMON ([id number]) [facility] ([facility]) [address] [place] [address] 84726 CBC W Auto Differential pane l (Bld)on 05-19-2024 Basophils/100 WBC (Bld) 0.6 % Normal 0.0-2.0 [facility] Comment on above: Performed By: #### 5 7021-8 #### LUZ MARIA SOLOMON ([id number]) [facility] ([facility]) [address] [place] [address] 93983 Eosinophils/100 WBC (Bld) 2.8 % Normal 0.0-6.0 [facility] Comment on above: Performed By: #### 5 7021-8 #### LUZ MARIA SOLOMON ([id number]) [facility] ([facility]) [address] [place] [address] 24897 Erythrocyte distribution width (RBC) [Ratio] 12.9 % Normal 11.5-14.5 [facility] Comment on above: Performed By: #### 5 7021-8 #### LUZ MARIA SOLOMON ([id number]) [facility] ([facility]) [address] [place] [address] 62733 Hematocrit (Bld) [Volume fraction] 40.9 % Normal 36.0-46.0 [facility] Comment on above: Performed By: #### 5 7021-8 #### LUZ MARIA SOLOMNO ([id number]) [facility] ([facility]) [address] [place] [address] 11949 Hemoglobin (Bld) [Mass/Vol] 13.5 g/dL Normal 12.0-16.0 [facility] Comment on above: Performed By: #### 5 7021-8 #### LUZ MARIA SOLOMON ([id number]) [facility] ([facility]) [address] [place] [address] 04125 Immature granulocytes/100 WBC (Bld) 0.5 % Normal 0.0-0.9 [facility] Comment on above: Result Comment: Gilma ture Granulocyte Count (IG) includes promyelocytes, myelocytes and metamyelocytes but does not include bands. Percent differential counts (%) should be interpreted in the context of the absolute cell counts (cells/UL). Performed By: #### 5 7021-8 #### LUZ MARIA SOLOMON ([id number]) [facility] ([facility]) [address] [place] [address] 77334 Immature Granulocyte Count (IG) includes promyelocytes, myelocytes and metamyelocytes but does not include bands. Percent differential counts (%) should be interpreted in the context of the absolute cell counts (cells/UL). Lymphocytes/100 WBC (Bld) 23.3 % Normal 13.0-44.0 [facility] Comment on above: Performed By: #### 5 7021-8 #### LUZ MARIA SOLOMON ([id number]) [facility] ([facility]) [address] [place] [address] 60006 MCH (RBC) [Entitic mass] 29.5 pg Normal 26.0-34.0 [facility] Comment on above: Performed By: #### 5 7021-8 #### LUZ MARIA SOLOMON ([id number]) [facility] ([facility]) [address] [place] [address] 41046 MCHC (RBC) [Mass/Vol] 33.0 g/dL Normal 32.0-36.0 [facility] Comment on above: Performed By: #### 5 7021-8 #### LUZ MARIA SOLOMON ([id number]) [facility] ([facility]) [address] [place] [address] 41012 MCV (RBC) [Entitic vol] 90 fL Normal 80-100 U [facility] Comment on above: Performed By: #### 5 7021-8 #### LUZ MARIA SOLOMON ([id number]) [facility] ([facility]) [address] [place] [address] 41873 Monocytes/100 WBC (Bld) 6.0 % Normal 2.0-10.0 U [facility] Comment on above: Performed By: #### 5 7021-8 #### LUZ MARIA SOLOMON ([id number]) [facility] ([facility]) [address] [place] [address] 57044 Neutrophils/100 WBC (Bld) 66.8 % Normal 40.0-80.0 [facility] Comment on above: Performed By: #### 5 7021-8 #### LUZ MARIA SOLOMON ([id number]) [facility] ([facility]) [address] [place] [address] 86775 Basophils (Bld) [#/Vol] 0.05 10*3/uL [facility] Eosinophils (Bld) [#/Vol] 0.22 10*3/uL [facility] Immature granulocytes (Bld) [#/Vol] 0.04 10*3/uL [facility] Lymphocytes (Bld) [#/Vol] 1.83 10*3/uL [facility] Monocytes (Bld) [#/Vol] 0.47 10*3/uL [facility] Neutrophils (Bld) [#/Vol] 5.24 10*3/uL [facility] Comment on above: Percent differential counts (%) should be interpreted in the context of the absolute cell counts (cells/uL). Nucleated RBC/100 WBC (Bld) [Ratio] 0.0 % [facility] Platelets (Bld) [#/Vol] 254 10*3/uL [facility] RBC (Bld) [#/Vol] 4.57 10*6/uL [facility] WBC (Bld) [#/Vol] 7.9 10*3/uL [facility] Basophils (Bld) [#/Vol] 0.05 x10*3/uL Normal 0.00-0.10 [facility] Comment on above: Performed By: #### 5 7021-8 #### LUZ MARIA SOLOMON ([id number]) [facility] ([facility]) [address] [place] [address] 07917 Eosinophils (Bld) [#/Vol] 0.22 x10*3/uL Normal 0.00-0.70 [facility] Comment on above: Performed By: #### 5 7021-8 #### LUZ MARIA SOLOMON ([id number]) [facility] ([facility]) [address] [place] [address] Immature granulocytes (Bld) [#/Vol] 0.04 x10*3/uL Normal 0.00-0.70 [facility] Comment on above: Performed By: #### 5 7021-8 #### LUZ MARIA SOLOMON ([id number]) [facility] ([facility]) [address] [place] [address] Lymphocytes (Bld) [#/Vol] 1.83 x10*3/uL Normal 1.20-4.80 [facility] Comment on above: Performed By: #### 5 7021-8 #### LUZ MARIA SOLOMON ([id number]) [facility] ([facility]) [address] [place] [address] 15047 Monocytes (Bld) [#/Vol] 0.47 x10*3/uL Normal 0.10-1.00 [facility] Comment on above: Performed By: #### 5 7021-8 #### LUZ MARIA SOLOMON ([id number]) [facility] ([facility]) [address] [place] [address] 92975 Neutrophils (Bld) [#/Vol] 5.24 x10*3/uL Normal 1.20-7.70 [facility] Comment on above: Result Comment: Perc ent differential counts (%) should be interpreted in the context of the absolute cell counts (cells/uL). Performed By: #### 5 7021-8 #### LUZ MARIA SOLOMON ([id number]) [facility] ([facility]) [address] [place] [address] 10588 Nucleated RBC/100 WBC (Bld) [Ratio] 0.0 /100 WBCs Normal 0.0-0.0 [facility] Comment on above: Performed By: #### 5 7021-8 #### LUZ MARIA SOLOMON ([id number]) [facility] ([facility]) [address] [place] [address] 30142 Platelets (Bld) [#/Vol] 254 x10*3/uL Normal 150-450 [facility] Comment on above: Performed By: #### 5 7021-8 #### LUZ MARIA SOLOMON ([id number]) [facility] ([facility]) [address] [place] [address] 58848 RBC (Bld) [#/Vol] 4.57 x10*6/uL Normal 4.00-5.20 [facility] Comment on above: Performed By: #### 5 7021-8 #### LUZ MARIA SOLOMON ([id number]) [facility] ([facility]) [address] [place] [address] 74442 WBC (Bld) [#/Vol] 7.9 x10*3/uL Normal 4.4-11.3 [facility] Comment on above: Performed By: #### 5 7021-8 #### LUZ MARIA SOLOMON ([id number]) [facility] ([facility]) [address] [place], [place] [address] Comprehensive metabolic 2000 panelon 05-19-2024 Albumin BCP dye [Mass/Vol] 4.1 g/dL Normal 3.4-5.0 [facility] Comment on above: Performed By: #### 2 4323-8 #### LUZ MARIA SOLOMON ([id number]) [facility] ([facility]) [address] [place] [address] 77092 ALP [Catalytic activity/Vol] 59 U/L Normal 33-110 [facility] Comment on above: Performed By: #### 2 4323-8 #### LUZ MARIA SOLOMON ([id number]) [facility] ([facility]) [address] [place] [address] ALT With P-5'-P [Catalytic activity/Vol] 17 U/L Normal 7-45 [facility] Comment on above: Result Comment: Madiha ents treated with Sulfasalazine may generate falsely decreased results for ALT. Performed By: #### 2 4323-8 #### LUZ MARIA SOLOMON ([id number]) [facility] ([facility]) [address] [place] [address] Patients treated wit h Sulfasalazine may generate falsely decreased results for ALT. Anion gap [Moles/Vol] 12 mmol/L Normal 10-20 [facility] Comment on above: Performed By: #### 2 4323-8 #### LUZ MARIA SOLOMON ([id number]) [facility] ([facility]) [address] [place] [address] AST With P-5'-P [Catalytic activity/Vol] 16 U/L Normal 9-39 [facility] Comment on above: Performed By: #### 2 4323-8 #### LUZ MARIA SOLOMON ([id number]) [facility] ([facility]) [address] [place] [address] Bilirubin [Mass/Vol] 0.6 mg/dL Normal 0.0-1.2 [facility] Comment on above: Performed By: #### 2 4323-8 #### LUZ MARIA SOLOMON ([id number]) [facility] ([facility]) [address] [place] [address] Calcium [Mass/Vol] 8.7 mg/dL Normal 8.6-10.3 [facility] Comment on above: Performed By: #### 2 4323-8 #### LUZ MARIA SOLOMON ([id number]) [facility] ([facility]) [address] [place] [address] Chloride [Moles/Vol] 105 mmol/L Normal 98-107 [facility] Comment on above: Performed By: #### 2 4323-8 #### LUZ MARIA SOLOMON ([id number]) [facility] ([facility]) [address] [place] [address] CO2 [Moles/Vol] 25 mmol/L Normal 21-32 [facility] Comment on above: Performed By: #### 2 4323-8 #### LUZ MARIA SOLOMON ([id number]) [facility] ([facility]) [address] [place] [address] 20438 Creatinine [Mass/Vol] 0.60 mg/dL Normal 0.50-1.05 [facility] Comment on above: Performed By: #### 2 4323-8 #### LUZ MARIA SOLOMON ([id number]) [facility] ([facility]) [address] [place] [address] 59686 Glucose [Mass/Vol] 95 mg/dL Normal 74-99 [facility] Comment on above: Performed By: #### 2 4323-8 #### LUZ MARIA SOLOMON ([id number]) [facility] ([facility]) [address] [place] [address] 69401 Potassium [Moles/Vol] 3.8 mmol/L Normal 3.5-5.3 [facility] Comment on above: Performed By: #### 2 4323-8 #### LUZ MARIA SOLOMON ([id number]) [facility] ([facility]) [address] [place] [address] 40689 Protein [Mass/Vol] 7.1 g/dL Normal 6.4-8.2 [facility] Comment on above: Performed By: #### 2 4323-8 #### LUZ MARIA SOLOMON ([id number]) [facility] ([facility]) [address] [place] [address] 46812 Sodium [Moles/Vol] 138 mmol/L Normal 136-145 [facility] Comment on above: Performed By: #### 2 4323-8 #### LUZ MARIA SOLOMON ([id number]) [facility] ([facility]) [address] [place] [address] 67366 Urea nitrogen [Mass/Vol] 11 mg/dL Normal 6-23 [facility] Comment on above: Performed By: #### 2 4323-8 #### LUZ MARIA SOLOMON ([id number]) [facility] ([facility]) [address] [place], [place] [address] eGFR - PINF [facility] Comment on above: Calculations of shi mated GFR are performed using the 2020 CKD-EPI Study Refit equation without the race variable for the IDMS-Traceable creatinine methods. https://jasn.asnjournals.org/content/earlyASN 742670 Interpretation and review of laboratory results Normal [facility] GFR/1.73 sq M.predicted MDRD (S/P/Bld) [Vol rate/Area] mL/min/{1.73_m2} Normal >60 [facility] Comment on above: Result Comment: Calc ulations of estimated GFR are performed using the 2020 CKD-EPI Study Refit equation without the race variable for the IDMS-Traceable creatinine methods. https://jasn.asnjournals.org/content/ASN 603083 Performed By: #### 2 4323-8 #### LOERA JUANITO ([id number]) [facility] ([facility]) [address] [place] [address] No Panel Informationon 05-19 Extra Tube Hold for add-ons. [facility] Comment on above: Auto resulted. [facility] Interpretation and review of laboratory results Abnormal [facility] Urinalysis complete W Reflex Culture panel (U)on 05-19-2024 Appearance (U) Clear Clear [facility] Bilirubin (U) [Mass/Vol] Negative NEGATIVE [facility] Color (U) Colorless Abnormal Light-Yellow, Yellow, Dark-Yellow [facility] Glucose Auto test strip (U) [Mass/Vol] Normal Normal mg/dL [facility] Ketones (U) [Mass/Vol] Negative NEGAT ANOOP mg/dL [facility] Leukocyte esterase Auto test strip Ql (U) 75 Doris/ L Abnormal NEGATIVE [facility] Nitrite Auto test strip Ql (U) Negative NEGATIVE [facility] pH (U) 6.5 [pH] 5.0, 5.5, 6.0, 6.5, 7.0, 7.5, 8.0 [facility] Protein (U) [Mass/Vol] 30 (1+) Abnormal NEGAT ANOOP, 10 (TRACE), 20 (TRACE) mg/dL [facility] RBC (U) [#/Vol] OVER (3+) Abnormal NEGATIVE [facility] Specific gravity (U) [Rel density] 1.007 1.005 - 1.035 [facility] Urobilinogen (U) [Mass/Vol] Normal Normal mg/dL [facility] Appearance (U) Clear Normal Clear [facility] Comment on above: Performed By: #### 5 8077-9 #### LUZ MARIA SOLOMON ([id number]) [facility] ([facility]) [address] [place] [address] Bilirubin (U) [Mass/Vol] Negative Normal NEGATIVE [facility] Comment on above: Performed By: #### 5 8077-9 #### LUZ MARIA SOLOMON ([id number]) [facility] ([facility]) [address] [place] [address] Color (U) Colorless Normal Light-Yellow, Yellow, Dark-Yellow [facility] Comment on above: Performed By: #### 5 8077-9 #### LUZ MARIA SOLOMON ([id number]) [facility] ([facility]) [address] [place] [address] Glucose Auto test strip (U) [Mass/Vol] Normal Normal Normal [facility] Comment on above: Performed By: #### 5 8077-9 #### LUZ MARIA SOLOMON ([id number]) [facility] ([facility]) [address] [place] [address] Ketones (U) [Mass/Vol] Negative Normal [facility]GATIVE [facility] on above: Performed By: #### 5 8077-9 #### LUZ MARIA SOLOMON ([id number]) [facility] ([facility]) [address] [place] [address] Leukocyte esterase Auto test strip Ql (U) 75 Doris/???L Abnormal NEGATIVE [facility] Comment on above: Performed By: #### 5 8077-9 #### LUZ MARIA SOLOMON ([id number]) [facility] ([facility]) [address] [place] [address] 40972 Nitrite Auto test strip Ql (U) Negative Normal NEGATIVE [facility] Comment on above: Performed By: #### 5 8077-9 #### LUZ MARIA SOLOMON ([id number]) [facility] ([facility]) [address] [place] [address] 91760 pH (U) 6.5 [pH] Normal 5.0, 5.5, 6.0, 6.5, 7.0, 7.5, 8.0 [facility] Comment on above: Performed By: #### 5 8077-9 #### LUZ MARIA SOLOMON ([id number]) [facility] ([facility]) [address] [place] [address] Protein (U) [Mass/Vol] 30 (1+) Abnormal NEGAT ANOOP, 10 (TRACE), 20 (TRACE) [facility] Comment on above: Performed By: #### 5 8077-9 #### LUZ MARIA SOLOMON ([id number]) [facility] ([facility]) [address] [place] [address] 44138 RBC (U) [#/Vol] OVER (3+) Abnormal NEGATIVE [facility] Comment on above: Performed By: #### 5 8077-9 #### LUZ MARIA SOLOMON ([id number]) [facility] ([facility]) [address] [place] [address] 24156 Specific gravity (U) [Rel density] 1.007 Normal 1.005-1.035 [facility] Comment on above: Performed By: #### 5 8077-9 #### LUZ MARIA SOLOMON ([id number]) [facility] ([facility]) [address] [place] [address] 36152 Urobilinogen (U) [Mass/Vol] Normal Normal Normal [facility] Comment on above: Performed By: #### 5 8077-9 #### LUZ MARIA SOLOMON ([id number]) [facility] ([facility]) [address] [place] [address] 70610 Urinalysis microscopic panel Auto Ql (U)on 05-19-2024 Bacteria Auto (Urine sed) [#/Area] 1+ Abnormal NONE SEEN /HPF [facility] Epithelial cells.squamous Auto (Urine sed) [#/Area] 1-9 (SPARSE) Reference range not established. /HPF [facility] Leukocyte clumps Auto (Urine sed) [#/Area] RARE Reference range not established. /HPF [facility] RBC Auto (Urine sed) [#/Area] >20 Abnormal NONE, 1-2, 3-5 /HPF [facility] WBC Auto (Urine sed) [#/Area] 1-5 1-5, NONE /HPF [facility] Bacteria Auto (Urine sed) [#/Area] 1+ /HPF Abnormal NONE SEEN [facility] Comment on above: Performed By: #### 5 3315-8 #### LUZ MARIA SOLOMON ([id number]) [facility] ([facility]) [address] [place] [address] 64360 Epithelial cells.squamous Auto (Urine sed) [#/Area] 1-9 (SPARSE) Normal Reference range not established. [facility] Comment on above: Performed By: #### 5 3315-8 #### LUZ MARIA SOLOMON ([id number]) [facility] ([facility]) [address] [place], [place] [address] Leukocyte clumps Auto (Urine sed) [#/Area] RARE Normal Reference range not established. [facility] Comment on above: Performed By: #### 5 3315-8 #### LUZ MARIA SOLOMON ([id number]) [facility] ([facility]) [address] [place] [address] 76451 RBC Auto (Urine sed) [#/Area] >20 Abnormal NONE, 1-2, 3-5 [facility] Comment on above: Performed By: #### 5 3315-8 #### LUZ MARIA SOLOMON ([id number]) [facility] ([facility]) [address] [place] [address] 28095 WBC Auto (Urine sed) [#/Area] 1-5 Normal 1-5, NONE [facility] Comment on above: Performed By: #### 5 3315-8 #### LUZ MARIA SOLOMON ([id number]) [facility] ([facility]) [address] [place] [address] Basic metabolic 2000 panelon 12-18-2023 Anion gap [Moles/Vol] 15 mmol/L 10 - 2 0 mmol/L [facility] Calcium [Mass/Vol] 9.3 mg/dL 8.6 - 10. 3 mg/dL [facility] Chloride [Moles/Vol] 103 mmol/L 98 - 10 7 mmol/L [facility] CO2 [Moles/Vol] 23 mmol/L 21 - 32 mmol/L [facility] Creatinine [Mass/Vol] 0.58 mg/dL 0.50 - 1.05 mg/dL [facility] eGFR - PINF [facility] Comment on above: Calculations of shi mated GFR are performed using the 2020 CKD-EPI Study Refit equation without the race variable for the IDMS-Traceable creatinine methods. https://jasn.asnjournals.org/content//ASN.2020 452526 Glucose [Mass/Vol] 109 mg/dL High 74 - 99 mg/dL [facility] Interpretation and review of laboratory results Abnormal [facility] Potassium [Moles/Vol] 3.7 mmol/L 3.5 - 5.3 mmol/L [facility] Sodium [Moles/Vol] 137 mmol/L 136 - 145 mmol/L [facility] Urea nitrogen [Mass/Vol] 10 mg/dL 6 - 23 mg/dL [facility] Anion gap [Moles/Vol] 15 mmol/L Normal 10-20 [facility] Comment on above: Performed By: #### 2 4321-2 #### LUZ MARIA SOLOMON ([id number]) [facility] ([facility]) [address] [place] [address] Calcium [Mass/Vol] 9.3 mg/dL Normal 8.6-10.3 [facility] Comment on above: Performed By: #### 2 4321-2 #### LUZ MARIA SOLOMON ([id number]) [facility] ([facility]) [address] [place] [address] Chloride [Moles/Vol] 103 mmol/L Normal 98-107 [facility] Comment on above: Performed By: #### 2 4321-2 #### LUZ MARIA SOLOMON ([id number]) [facility] ([facility]) [facility] [place] [address] CO2 [Moles/Vol] 23 mmol/L Normal 21-32 [facility] Comment on above: Performed By: #### 2 4321-2 #### LUZ MARIA SOLOMON ([id number]) [facility] ([facility]) [address] [place] [address] 88051 Creatinine [Mass/Vol] 0.58 mg/dL Normal 0.50-1.05 [facility] Comment on above: Performed By: #### 2 432-2 #### LUZ MARIA SOLOMON ([id number]) [facility] ([facility]) [address] [place] [address] 57591 GFR/1.73 sq M.predicted MDRD (S/P/Bld) [Vol rate/Area] mL/min/{1.73_m2} Normal >60 [facility] Comment on above: Result Comment: Calc ulations of estimated GFR are performed using the 2020 CKD-EPI Study Refit equation without the race variable for the IDMS-Traceable creatinine methods. https://jasn.asnjournals.org/content/early/ASN.2020 992348 Performed By: #### 2 432-2 #### LUZ MARIA SOLOMON ([id number]) [facility] ([facility]) [address] [place] [address] 30010 Glucose [Mass/Vol] 109 mg/dL High 74-99 [facility] Comment on above: Performed By: #### 2 432-2 #### LUZ MARIA SOLOMON ([id number]) [facility] ([facility]) [address] [place] [address] 63006 Potassium [Moles/Vol] 3.7 mmol/L Normal 3.5-5.3 [facility] Comment on above: Performed By: #### 2 4321-2 #### LUZ MARIA SOLOMON ([id number]) [facility] ([facility]) [address] [place] [address] Sodium [Moles/Vol] 137 mmol/L Normal 136-145 [facility] Comment on above: Performed By: #### 2 4321-2 #### LUZ MARIA SOLOMON ([id number]) [facility] ([facility]) [address] [place] [address] Urea nitrogen [Mass/Vol] 10 mg/dL Normal 6-23 [facility] Comment on above: Performed By: #### 2 4321-2 #### LUZ MARIA SOLOMON ([id number]) [facility] ([facility]) [address] [place] [address] 77324 CBC W Auto Differential pane l (Bld)on 12-18-2023 Basophils (Bld) [#/Vol] 0.07 10*3/uL [facility] Basophils/100 WBC (Bld) 0.8 % 0.0 - 2.0 % [facility] [facility] Eosinophils (Bld) [#/Vol] 0.24 10*3/uL [facility] Eosinophils/100 WBC (Bld) 2.6 % 0.0 - 6.0 % [facility] Erythrocyte distribution width (RBC) [Ratio] 12.4 % 11.5 - 14.5 % [facility] Hematocrit (Bld) [Volume fraction] 40.6 % 36.0 - 46.0 % [facility] Hemoglobin (Bld) [Mass/Vol] 13.4 g/dL 12.0 - 16.0 g/dL [facility] Immature granulocytes (Bld) [#/Vol] 0.03 10*3/uL [facility] Immature granulocytes/100 WBC (Bld) 0.3 % 0.0 - 0.9 % [facility] Comment on above: Immature Granulocyte Count (IG) includes promyelocytes, myelocytes and metamyelocytes but does not include bands. Percent differential counts (%) should be interpreted in the context of the absolute cell counts (cells/UL). Lymphocytes (Bld) [#/Vol] 2.73 10*3/uL [facility] Lymphocytes/100 WBC (Bld) 29.6 % 13.0 - 44.0 % [facility] MCH (RBC) [Entitic mass] 29.5 pg 26.0 - 34.0 pg [facility] MCHC (RBC) [Mass/Vol] 33.0 g/dL 32.0 - 36.0 g/dL [facility] MCV (RBC) [Entitic vol] 89 fL 80 - 100 fL [facility] Monocytes (Bld) [#/Vol] 0.67 10*3/uL [facility] Monocytes/100 WBC (Bld) 7.3 % 2.0 - 10.0 % [facility] Neutrophils (Bld) [#/Vol] 5.48 10*3/uL [facility] Comment on above: Percent differential counts (%) should be interpreted in the context of the absolute cell counts (cells/uL). Neutrophils/100 WBC (Bld) 59.4 % 40.0 - 80.0 % [facility] Nucleated RBC/100 WBC (Bld) [Ratio] 0.0 % [facility] Platelets (Bld) [#/Vol] 281 10*3/uL [facility] RBC (Bld) [#/Vol] 4.54 10*6/uL [facility] WBC (Bld) [#/Vol] 9.2 10*3/uL [facility] Basophils (Bld) [#/Vol] 0.07 x10*3/uL Normal 0.00-0.10 [facility] Comment on above: Performed By: #### 5 7021-8 #### LUZ MARIA SOLOMON ([id number]) [facility] ([facility]) [address] [place] [address] 39745 Basophils/100 WBC (Bld) 0.8 % Normal 0.0-2.0 [facility] [place] Comment on above: Performed By: #### 5 7021-8 #### LUZ MARIA SOLOMON ([id number]) [facility] ([facility]) [facility] [place] [address] Eosinophils (Bld) [#/Vol] 0.24 x10*3/uL Normal 0.00-0.70 [facility] Comment on above: Performed By: #### 5 7021-8 #### LUZ MARIA SOLOMON ([id number]) [facility] ([facility]) [address] [place] [address] 12723 Eosinophils/100 WBC (Bld) 2.6 % Normal 0.0-6.0 [facility] Comment on above: Performed By: #### 5 7021-8 #### LUZ MARIA SOLOMON ([id number]) [facility] ([facility]) [address] [place] [address] 33824 Erythrocyte distribution width (RBC) [Ratio] 12.4 % Normal 11.5-14.5 [facility] Comment on above: Performed By: #### 5 7021-8 #### LUZ MARIA SOLOMON ([id number]) [facility] ([facility]) [address] [place] [address] 82670 Hematocrit (Bld) [Volume fraction] 40.6 % Normal 36.0-46.0 [facility] Comment on above: Performed By: #### 5 7021-8 #### LUZ MARIA SOLOMON ([id number]) [facility] ([facility]) [address] [place] [address] 57252 Hemoglobin (Bld) [Mass/Vol] 13.4 g/dL Normal 12.0-16.0 [facility] Comment on above: Performed By: #### 5 7021-8 #### LUZ MARIA SOLOMON ([id number]) [facility] ([facility]) [address] [place] [address] 69860 Immature granulocytes (Bld) [#/Vol] 0.03 x10*3/uL Normal 0.00-0.70 [facility] Comment on above: Performed By: #### 5 7021-8 #### LUZ MARIA SOLOMON ([id number]) [facility] ([facility]) [address] [place] [address] 78723 Immature granulocytes/100 WBC (Bld) 0.3 % Normal 0.0-0.9 [facility] Comment on above: Result Comment: Gilma ture Granulocyte Count (IG) includes promyelocytes, myelocytes and metamyelocytes but does not include bands. Percent differential counts (%) should be interpreted in the context of the absolute cell counts (cells/UL). Performed By: #### 5 7021-8 #### LUZ MARIA SOLOMON ([id number]) [facility] ([facility]) [address] [place] [address] 30202 Lymphocytes (Bld) [#/Vol] 2.73 x10*3/uL Normal 1.20-4.80 [facility] Comment on above: Performed By: #### 5 7021-8 #### LUZ MARIA SOLOMON ([id number]) [facility] ([facility]) [address] [place] [address] 95796 Lymphocytes/100 WBC (Bld) 29.6 % Normal 13.0-44.0 [facility] Comment on above: Performed By: #### 5 7021-8 #### LUZ MARIA SOLOMON ([id number]) [facility] ([facility]) [address] [place] [address] 80797 MCH (RBC) [Entitic mass] 29.5 pg Normal 26.0-34.0 [facility] Comment on above: Performed By: #### 5 7021-8 #### LUZ MARIA SOLOMON ([id number]) [facility] ([facility]) [address] [place] [address] 04054 MCHC (RBC) [Mass/Vol] 33.0 g/dL Normal 32.0-36.0 [facility] Comment on above: Performed By: #### 5 7021-8 #### LUZ MARIA SOLOMON ([id number]) [facility] ([facility]) [address] [place] [address] 06069 MCV (RBC) [Entitic vol] 89 fL Normal 80-100 [facility] [place] Comment on above: Performed By: #### 5 7021-8 #### LUZ MARIA SOLOMON ([id number]) [facility] ([facility]) [address] [place] [address] 13648 Monocytes (Bld) [#/Vol] 0.67 x10*3/uL Normal 0.10-1.00 [facility] Comment on above: Performed By: #### 5 7021-8 #### LUZ MARIA SOLOMON ([id number]) [facility] ([facility]) [address] [place] [address] 02092 Monocytes/100 WBC (Bld) 7.3 % Normal 2.0-10.0 [facility] [place] Comment on above: Performed By: #### 5 7021-8 #### LUZ MARIA SOLOMON ([id number]) [facility] ([facility]) [address] [place] [address] 19619 Neutrophils (Bld) [#/Vol] 5.48 x10*3/uL Normal 1.20-7.70 [facility] Comment on above: Result Comment: Perc ent differential counts (%) should be interpreted in the context of the absolute cell counts (cells/uL). Performed By: #### 5 7021-8 #### LUZ MARIA SOLOMON ([id number]) [facility] ([facility]) [address] [place] [address] 78916 Neutrophils/100 WBC (Bld) 59.4 % Normal 40.0-80.0 [facility] Comment on above: Performed By: #### 5 7021-8 #### LUZ MARIA SOLOMON ([id number]) [facility] ([facility]) [address] [place] [address] 54449 Nucleated RBC/100 WBC (Bld) [Ratio] 0.0 /100 WBCs Normal 0.0-0.0 [facility] Comment on above: Performed By: #### 5 7021-8 #### LUZ MARIA SOLOMON ([id number]) [facility] ([facility]) [address] [place] [address] 46418 Platelets (Bld) [#/Vol] 281 x10*3/uL Normal 150-450 [facility] Comment on above: Performed By: #### 5 7021-8 #### LUZ MARIA SOLOMON ([id number]) [facility] ([facility]) [address] [place] [address] 49917 RBC (Bld) [#/Vol] 4.54 x10*6/uL Normal 4.00-5.20 [facility] Comment on above: Performed By: #### 5 7021-8 #### LUZ MARIA SOLOMON ([id number]) [facility] ([facility]) [address] [place] [address] WBC (Bld) [#/Vol] 9.2 x10*3/uL Normal 4.4-11.3 [facility] Comment on above: Performed By: #### 5 7021-8 #### LUZ MARIA SOLOMON ([id number]) [facility] ([facility]) [address] [place] [address] ECG 12-LEADon 12-18-2023 ECG 12-LEAD Ventricular Rate 72 Atrial Rate 72 P-R Interval 170 QRS Duration 90 Q-T Interval 376 QTC Calculation(Bazett) 411 P [place] 74 R [place] 21 T [place] 52 QRS Count 12 Q Onset 222 P Onset 137 P Offset 191 T Offset 410 QTC Fredericia 399 Diagnosis Normal sinus rhythm Low voltage QRS Cannot rule out Anterior infarct , age undetermined Abnormal ECG No previous ECGs available See ED provider note for full interpretation and clinical correlation Confirmed by Juan Lennon ([id number]) on 12/23/2023 4:47:14 PM Normal [facility] Hepatic function 2000 panelo n 12-18-2023 Albumin BCP dye [Mass/Vol] 4.0 g/dL 3.4 - 5.0 g/dL [facility] ALP [Catalytic activity/Vol] 57 U/L 33 - 110 U/L [facility] ALT With P-5'-P [Catalytic activity/Vol] 31 U/L 7 - 45 U/L [facility] Comment on above: Patients treated wit h Sulfasalazine may generate falsely decreased results for ALT. AST With P-5'-P [Catalytic activity/Vol] 22 U/L 9 - 39 U/L [facility] Bilirubin [Mass/Vol] 0.5 mg/dL 0.0 - 1 .2 mg/dL [facility] Bilirubin.direct [Mass/Vol] 0.1 mg/dL 0.0 - 0.3 mg/dL [facility] Protein [Mass/Vol] 6.8 g/dL 6.4 - 8.2 g/dL [facility] Albumin BCP dye [Mass/Vol] 4.0 g/dL Normal 3.4-5.0 [facility] Comment on above: Performed By: #### 2 5-3 #### LUZ MARIA SOLOMON ([id number]) [facility] ([facility]) [address] [place] [address] 66444 ALP [Catalytic activity/Vol] 57 U/L Normal 33-110 [facility] Comment on above: Performed By: #### 2 4324-3 #### LUZ MARIA SOLOMON ([id number]) [facility] ([facility]) [address] [place] [address] 27880 ALT With P-5'-P [Catalytic activity/Vol] 31 U/L Normal 7-45 [facility] Comment on above: Result Comment: Madiha ents treated with Sulfasalazine may generate falsely decreased results for ALT. Performed By: #### 2 4324-3 #### LUZ MARIA SOLOMON ([id number]) [facility] ([facility]) [address] [place] [address] 63899 AST With P-5'-P [Catalytic activity/Vol] 22 U/L Normal 9-39 [facility] Comment on above: Performed By: #### 2 4324-3 #### LUZ MARIA SOLOMON ([id number]) [facility] ([facility]) [address] [place] [address] 70507 Bilirubin [Mass/Vol] 0.5 mg/dL Normal 0.0-1.2 [facility] Comment on above: Performed By: #### 2 4324-3 #### LUZ MARIA SOLOMON ([id number]) [facility] ([facility]) [address] [place] [address] 22917 Bilirubin.direct [Mass/Vol] 0.1 mg/dL Normal 0.0-0.3 [facility] Comment on above: Performed By: #### 2 4324-3 #### LUZ MARIA SOLOMON ([id number]) [facility] ([facility]) [address] [place] [address] 94013 Protein [Mass/Vol] 6.8 g/dL Normal 6.4-8.2 [facility] Comment on above: Performed By: #### 2 4325-3 #### LUZ MARIA SOLOMON ([id number]) [facility] ([facility]) [address] [place] [address] 37904 Lipaseon 12-18-2023 Lipase [Catalytic activity/Vol] 26 U/L 9 - U/L [facility] Lipase [Catalytic activity/V ol]on 12-18-2023 Venipuncture immediately after or during the administration of Metamizole may lead to falsely low results. Testing should be performed immediately prior to Metamizole dosing. [facility] No Panel Informationon 12-17 Interpretation and review of laboratory results Normal [facility] Triacylglycerol lipaseon Lipase [Catalytic activity/Vol] 26 U/L Normal [facility] Comment on above: Order Comment: Venip uncture immediately after or during the administration of Metamizole may lead to falsely low results. Testing should be performed immediately prior to Metamizole dosing. Performed By: #### 3 040-3 #### LUZ MARIA SOLOMON ([id number]) [facility] ([facility]) [address] [place] [address] 17420 Tropinin I.cardiac panel Hig h sensitivity methodon 12-18-2023 Interpretation and review of laboratory results Normal [facility] Less than 99th percentile of normal [...] performed using a different testing methodology at [facility] than at other [facility] [place] [facility]. Direct result comparisons should only be made within the same method. [facility] Troponin I, High Sensitivity on 12-18-2023 Tropinin I.cardiac panel High sensitivity method ng/L 0 - 13 ng/L [facility] Troponin I.cardiac panelon 0 12-18-2023 Tropinin I.cardiac panel High sensitivity method <3 Normal 0-13 [facility] Comment on above: Order Comment: Less than [...] performed using a different testing methodology at [facility] than at other [facility] [place] [facility]. Direct result comparisons should only be made within the same method. Performed By: #### 8 9577-1 #### LOERA JUANITO ([id number]) [facility] ([facility]) [address] [place] [address] XR CHEST 1 VIEWon 12-18-2023 XR CHEST 1 VIEW Interpreted By: Tremaine Mehta, STUDY: XR CHEST 1 VIEW; 12/18/2023 3:58 am INDICATION: Signs/Symptoms:Chest pain. COMPARISON: Chest radiograph 07/19/2022 ACCESSION NUMBER(S): [id number] ORDERING CLINICIAN: CECE MILLER FINDINGS: CARDIOMEDIASTINAL SILHOUETTE: Cardiomediastinal silhouette is normal in size and configuration. LUNGS: No pulmonary consolidation, pleural effusion or pneumothorax. ABDOMEN: No remarkable upper abdominal findings. BONES: No acute osseous abnormality. IMPRESSION: No radiographic evidence of acute cardiopulmonary pathology. MACRO: None. Signed by: Tremaine Mehta 12/18/2023 4:15 AM Dictation workstation: [id number] Normal [facility] XR Chest Single viewon 12-17 No radiographic evidence of acute cardiopulmonary pathology. MACRO: None. Signed by: Tremaine Mehta 12/18/2023 4:15 AM Dictation workstation: [id number] Interpreted By: Tremaine Mehta, STUDY: XR CHEST 1 VIEW; 12/18/2023 3:58 am INDICATION: Signs/Symptoms:Chest pain. COMPARISON: Chest radiograph 07/19/2022 ACCESSION NUMBER(S): [id number] ORDERING CLINICIAN: CECE MILLER FINDINGS: CARDIOMEDIASTINAL SILHOUETTE: Cardiomediastinal silhouette is normal in size and configuration. LUNGS: No pulmonary consolidation, pleural effusion or pneumothorax. ABDOMEN: No remarkable upper abdominal findings. BONES: No acute osseous abnormality. [facility] MMODAL Tremaine Mehta MD - 12/18/2023 Interpreted By: Tremaine Mehta, STUDY: XR CHEST 1 VIEW; 12/18/2023 3:58 am INDICATION: Signs/Symptoms:Chest pain. COMPARISON: Chest radiograph 07/19/2022 ACCESSION NUMBER(S): [id number] ORDERING CLINICIAN: CECE MILLER FINDINGS: CARDIOMEDIASTINAL SILHOUETTE: Cardiomediastinal silhouette is normal in size and configuration. LUNGS: No pulmonary consolidation, pleural effusion or pneumothorax. ABDOMEN: No remarkable upper abdominal findings. BONES: No acute osseous abnormality. IMPRESSION: No radiographic evidence of acute cardiopulmonary pathology. MACRO: None. Signed by: Tremaine Mehta 12/18/2023 4:15 AM Dictation workstation: [id number] [facility] Work Phone: Radiology Study observation (narrative) [facility] Work Phone: XR Chest Single viewOrdered By: Tremaine Mehta on 12-18-2023 [facility] Work Phone: PT Progress Noteon 3 [...] Declined. Insurance Insurance reviewed Visit number: 9 [facility] Evaluating therapist Jean De Los Santos PT. M25.561 Subjective Patient reports:. 10/18 discomfort right now. Precautions: none. Fall Risk: none S/P R ankle fusion; peroneal/ATF repair done 11/03/22. Treatment Time in clinic started at 7:03 am Time in clinic ended at 7:35 am Total time in clinic is 32 minutes. Total timed code time is 30 minutes. Therapeutic exercise (59825): timed minutes 30, units 2 . reassessment today BHR/BTR 2x10 ea [id number] lateral [id number]-gg-[id number] heel/toe walk- 2x10 ea fwd lunge ea [...] Apr 14 2023 8:14AM EST (Author) Normal [facility] PT Progress Noteon 3 PT Progress Note [...] Insurance Insurance reviewed Visit number: 8 [facility] Evaluating therapist Jean De Los Santos PT. M25.561 Subjective Patient reports:. 10/18 pain now. Precautions: none. Fall Risk: none S/P R ankle fusion; peroneal/ATF repair done 11/03/22. Treatment Time in clinic started at 7:33 am Time in clinic ended at 8:00 am Total time in clinic is 27 minutes. Therapeutic exercise (37183): timed minutes 12, units 1 . reassessment today BHR/BTR 2x10 ea [id number]-6m42 N lateral oxaf-kf-5l28 N heel/toe walk- 2x10 ea N fwd [...] Mar 31 2023 8:00AM EST (Author) Normal [facility] PT Progress Noteon 3 PT Progress Note [...] Declined. Insurance Insurance reviewed Visit number: 7 [facility] Evaluating therapist Jean De Los Santos PT. [...] code time is 40 minutes. Therapeutic exercise (71420): timed minutes 40, units 3 . seated [...] Insurance Insurance reviewed Visit number: 6 [facility] Evaluating therapist Jean De Los Santos PT. M21.773 Subjective Patient reports:. Patient states that she [...] code time is 38 minutes. Therapeutic exercise (08403): timed minutes 38, units 3 . Recumbent [...] Signatures Electronically signed by : Lupe Zayas MAGNETO ELECTRICIAN; Mar 20 2023 8:12AM EST (Author) Electronically signed by : Bernardo De Los Santos PT; Mar 21 2023 10:21AM EST Normal [facility] Progress Noteon 3 PT Progress Note Therapy Diagnosis Assessed Right ankle pain (719.47) (M25.573) Plan Goals: Goals set and discussed today. [...] Declined. Insurance Insurance reviewed Visit number: 5 [facility] Evaluating therapist Jean De Los Santos PT. M27.815 Subjective Patient reports:. Patient states that she [...] code time is 38 minutes. Therapeutic exercise (99592): timed minutes 38, units 3 . Recumbent [...] Signatures Electronically signed by : Lupe Zayas MAGNETO ELECTRICIAN; Mar 13 2023 8:44AM EST (Author) Electronically signed by : Bernardo De Los Santos PT; Mar 13 2023 8:59AM EST [facility] Progress Noteon 3 PT Progress Note [...] Insurance Insurance reviewed Visit number: 4 [facility] Evaluating therapist Jean De Los Santos PT. M25.561 Subjective Patient reports:. Feeling better-2/10 pain now. Precautions: none. Fall Risk: none S/P R ankle fusion; peroneal/ATF repair done 11/03/22. Treatment Time in clinic started at 7:02 am Time in clinic ended at 7:32 am Total time in clinic is 30 minutes. Total timed code time is 27 minutes. Therapeutic exercise (89973): timed minutes 27, units 2 . Recumbent [...] Mar 10 2023 7:35AM EST (Author) Normal [facility] Progress Noteon 3 PT Progress Note [...] Declined. Insurance Insurance reviewed Visit number: 3 [facility] Evaluating therapist Jean De Los Santos PT. [...] code time is 39 minutes. Therapeutic exercise (94671): timed minutes 39, units 3 . Recumbent [...] personalized home program (Scanned) . Access Code: [email or web address] URL: [email or web address] on the [employer]/ Date: 03/03/2023 Prepared by: Lupe Zayas Exercises [...] Signatures Electronically signed by : Jared Hernadez MAGNETO ELECTRICIAN; Mar 08 2023 9:48AM EST (Author) Electronically [...] Declined. Insurance Insurance reviewed Visit number: 2 [facility] Evaluating therapist Jean De Los Santos PT. [...] code time is 39 minutes. Therapeutic exercise (97663): timed minutes 39, units 3 . Recumbent [...] personalized home program (Scanned) . Access Code: [email or web address] URL: [email or web address] the [email or web address]/ Date: 03/03/2023 Prepared by: Lupe Zayas Exercises [...] Signatures Electronically signed by : Lupe Zayas MAGNETO ELECTRICIAN; Mar 03 2023 7:52AM EST (Author) Electronically signed by : Bernardo De Los Santos PT; Mar 03 2023 10:21AM EST Normal [facility] PT Initial Evaluationon 02-07 PT Initial Evaluation [...] Insurance Insurance reviewed Visit number: 1 [facility] Evaluating therapist Jean De Los Santos PT. [...] learning preventative care measures . 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 Current Status: improving. Patient Awareness: Patient is aware of her diagnosis and prognosis. Personal Factors That May Impact Care:. ID confirmed with B-day; speaks bahraini No obtrusive barriers to learning identified/observed. Objective [...] and PRE.-A gait/balance activities PRN.-A. Evaluation Code: 64277 PT Eval: Low Complexity, 35 min(s). Timed: 91177 Therapeutic Exercises, 12 mi (more content not included)... [facility] Therapy Communicationon 02-07 Therapy Communication Message NIA PRYOR was (D/C)- last seen: . Nia has been seen in clinical physical therapy on 02/27 to 04/14/23 for 9 visit (s) ; there has been no further visits attended; D/C from clinic PT. Signatures Electronically signed by : Bernardo De Los Santos, PT; May 19 2023 10:39AM EST (Author) [facility] Emergency Department Summary on 11-10-2022 Emergency Department Summary [facility] Medical Records Department [facility] [place] [address] Emergency Department Summary 11/10/22 MR#: [id number] Acct: [id number] Name: NIA PRYOR Rep #: [id number] : 1975 47 From: David Morris PCP: [...] lenses Wears glasses Home Medications omega-3 360 at-ihg-dmc-fish oil 1,200 mg capsule,delayed release (Fish Oil) [...] 0 current occupational status: employed current occupation: [employer] Smoking Status: Never smoker alcohol intake: [...] splint was (more content not included)... Normal [facility] Venous Duplex US, Unilateral on 11-10-2022 Venous Duplex US, Unilateral [facility] [address] [place] [address] Venous Duplex US, Unilateral 11/10/22 0938 MR#: [id number] Acct: [id number] Name: NIA PRYOR Rep #: [id number] : 1975 47 From: Kendall Grant MD [...] DO Date Dictated: 11/10/22937 Date Transcribed: 11/10/222149 [employer] Worker: Signed Normal [facility] Vitamin D,25 Hydroxyon 11-07 Vitamin D 25-OH 37.6 ng/mL Normal [facility] Comment on above: Result Comment: Yvonne min D 25(OH) Status Range Deficiency <20 ng/mL (50nmol/L) Insufficiency 20 - 30 ng/mL (50 - 75 nmol/L) Sufficiency 30 - 100 ng/mL (75 - 250 nmol/L) Toxicity >100 ng/mL (>250 nmol/L) Performed By: #### L 506.1000 #### [facility] [address] [place], [address] Discharge Instructionon 10-10 Discharge Instruction [facility] Medical Records Department [address] [place] [address] Instructions for Home/Discharge Instructions 11/05/22 1303 MR#: [id number] Acct: [id number] Name: NIA PRYOR Rep #: [id number] : 1975 47 From: Toro Valdovinos DPM [...] When: Next Monday sooner if needed. Call [facility] if needed - [phone] Test Results: Test results from this visit [...] (Reason: pain) Qty: 10 0RF Continued omega 0-cwy-pio-fish oil [Fish Oil] 360-1,200 mg capsule,delayed release(DR/EC) [...] DO; Dr. Logan Toure DO Signed Normal [facility] Absolute lymphocyte countOrd ered By: Dr. Valdovinos on 11-04-2022 Lymphocytes Auto (Unsp spec) [#/Vol] 1.74 10*3/uL 0.83-4.51 [facility] Basophil percentageOrdered B y: Dr. Valdovinos on 11-04-2022 Basophils/100 WBC (Bld) 0.1 % 0-1 [facility] Bilirubin [Mass/Vol] 0.60 mg/dL 0.20-1.00 [facility] Comment on above: For patients on eltr ombopag therapy, use of Dimension [place] TBIL is not recommended. Chloride [Moles/Vol] 106 mmol/L 98-107 [facility] Eosinophils/100 WBC (Bld) 0.0 % 0-5 [facility] Glucose [Mass/Vol] 120 mg/dL 74-106 [facility] Comment on above: Fasting Glucose resu lt from 100 to 125 mg/dL suggests IMPAIRED HOMEOSTASIS per A.D.A. criteria. Neutrophils (Bld) [#/Vol] 11.5 10*3/uL 2.0-7.7 [facility] Neutrophils/100 WBC (Bld) 80.2 % 47-70 [facility] Potassium [Moles/Vol] 3.6 mmol/L 3.5-5.1 [facility] Protein [Mass/Vol] 6.9 g/dL 6.4-8.2 [facility] Sodium [Moles/Vol] 141 mmol/L 136-145 [facility] WBC (Bld) [#/Vol] 14.3 10*3/uL 4.4-11.0 [facility] Blood erythrocytes count (nu mber/volume)Ordered By: Dr. Valdovinos on 11-04-2022 RBC (Bld) [#/Vol] 4.29 10*6/uL 4.2-5.4 [facility] Blood hemoglobin measurement (mass/volume)Ordered By: Dr. Valdovinos on 11-04-2022 Hemoglobin (Bld) [Mass/Vol] 12.4 g/dL 12.0-15.0 [facility] Blood lymphocytes/100 leukoc ytesOrdered By: Dr. Valdovinos on 11-04-2022 Lymphocytes/100 WBC (Bld) 12.2 % 19-41 [facility] Blood monocytes/100 leukocyt esOrdered By: Dr. Valdovinos on 11-04-2022 Monocytes/100 WBC (Bld) 6.9 % 0-10 [facility] Blood platelet mean volumeOr dered By: Dr. Valdovinos on 11-04-2022 Platelet mean volume (Bld) [Entitic vol] 9.9 fL 6.2-12.0 [facility] CBC W/Diff, Automatedon 10-10 Absolute Lymph 1.74 X10 3/uL Normal 0.83-4.51 [facility] Comment on above: Performed By: #### L 500.4050, L100.0100 #### [facility] [address] [place], [address] Absolute Neut 11.5 X10 3/uL High 2.0-7.7 [facility] Comment on above: Performed By: #### L 500.4050, L100.0100 #### [facility] [address] [place], [address] Basophils/100 WBC (Bld) 0.1 % Normal 0-1 [facility] Comment on above: Performed By: #### L 500.4050, L100.0100 #### [facility] [address] [place], [address] Eosinophils/100 WBC (Bld) 0.0 % Normal 0-5 [facility] Comment on above: Performed By: #### L 500.4050, L100.0100 #### [facility] [address] [place], [address] Erythrocyte distribution width (RBC) [Ratio] 12.4 % Normal 11.6-14.6 [facility] Comment on above: Performed By: #### L 500.4050, L100.0100 #### [facility] [address] [place], [address] Hematocrit (Bld) [Volume fraction] 38.7 % Normal 37-47 [facility] Comment on above: Performed By: #### L 500.4050, L100.0100 #### [facility] [address] [place], [address] Hemoglobin (Bld) [Mass/Vol] 12.4 g/dL Normal 12.0-15.0 [facility] Comment on above: Performed By: #### L 500.4050, L100.0100 #### [facility] [address] [place], [address] IG% 0.600 Normal 0.0-0.9 [facility] Comment on above: Result Comment: IG% - Immature Granulocytes (promyelocytes, myelocytes and metamyelocytes) > 1% indicates that a LEFT SHIFT is Present. Performed By: #### L 500.4050, L100.0100 #### [facility] [address] [place], [address] Lymphocytes/100 WBC (Bld) 12.2 % Low 19-41 [facility] Comment on above: Performed By: #### L 500.4050, L100.0100 #### [facility] [address] [place], [address] MCH (RBC) [Entitic mass] 28.9 pg Normal 27.0-32.0 [facility] Comment on above: Performed By: #### L 500.4050, L100.0100 #### [facility] [address] [place], [address] MCHC (RBC) [Mass/Vol] 32.0 g/dL Normal 32-36 [facility] Comment on above: Performed By: #### L 500.4050, L100.0100 #### [facility] [address] [place], [address] MCV (RBC) [Entitic vol] 90.2 fL Normal 81-99 [facility] Comment on above: Performed By: #### L 500.4050, L100.0100 #### [facility] [address] [place], [address] Monocytes/100 WBC (Bld) 6.9 % Normal 0-10 [facility] Comment on above: Performed By: #### L 500.4050, L100.0100 #### [facility] [address] [place], [address] Neutrophils/100 WBC (Bld) 80.2 % High 47-70 [facility] Comment on above: Performed By: #### L 500.4050, L100.0100 #### [facility] [address] [place], [address] Nucleated RBC (Bld) [#/Vol] 0 10*3/uL Normal 0-5 [facility] Comment on above: Performed By: #### L 500.4050, L100.0100 #### [facility] [address] [place], [address] Platelet mean volume (Bld) [Entitic vol] 9.9 fL Normal 6.2-12.0 [facility] Comment on above: Performed By: #### L 500.4050, L100.0100 #### [facility] [address] [place], [address] Platelets (Bld) [#/Vol] 332 10*3/uL Normal 150-450 [facility] Comment on above: Performed By: #### L 500.4050, L100.0100 #### [facility] [address] [place], [address] RBC (Bld) [#/Vol] 4.29 10*6/uL Normal 4.2-5.4 [facility] Comment on above: Performed By: #### L 500.4050, L100.0100 #### [facility] [address] [place], [address] RDW SD 40.7 fl Normal 35.1-43.9 [facility] Comment on above: Performed By: #### L 500.4050, L100.0100 #### [facility] [address] [place], [address] WBC (Bld) [#/Vol] 14.3 10*3/uL High 4.4-11.0 [facility] Comment on above: Performed By: #### L 500.4050, L100.0100 #### [facility] [address] [place], [address] Comprehensive Metabolic Prof [facility] 11-04-2022 Albumin [Mass/Vol] 3.2 g/dL Normal 3.2-5.0 [facility] Comment on above: Performed By: #### L 500.4050, L100.0100 #### [facility] [address] [place], [address] Albumin/Globulin [Mass ratio] 0.9 {ratio} Normal 0.9-2.4 [facility] Comment on above: Performed By: #### L 500.4050, L100.0100 #### [facility] [address] [place], [address] ALK P 61 U/L Normal 45-117 [facility] Comment on above: Performed By: #### L 500.4050, L100.0100 #### [facility] [address] [place], [address] ALT [Catalytic activity/Vol] 27 U/L Normal 13-56 [facility] Comment on above: Performed By: #### L 500.4050, L100.0100 #### [facility] [address] [place], [address] AST [Catalytic activity/Vol] 17 U/L Normal 15-37 [facility] Comment on above: Performed By: #### L 500.4050, L100.0100 #### [facility] [address] [place], [address] Bilirubin [Mass/Vol] 0.60 mg/dL Normal 0.20-1.00 [facility] Comment on above: Result Comment: For patients on eltrombopag therapy, use of Dimension [place] TBIL is not recommended. Performed By: #### L 500.4050, L100.0100 #### [facility] [address] [place], [address] BUN/CRE 12.8 RATIO Normal 10-20 [facility] Comment on above: Performed By: #### L 500.4050, L100.0100 #### [facility] [address] [place], [address] CA,Total 8.7 mg/dL Normal 8.5-10.1 [facility] Comment on above: Performed By: #### L 500.4050, L100.0100 #### [facility] [address] [place], [address] Chloride [Moles/Vol] 106 mmol/L Normal 98-107 [facility] Comment on above: Performed By: #### L 500.4050, L100.0100 #### [facility] [address] [place], [address] CO2 [Moles/Vol] 25.0 mmol/L Normal 21.0-32.0 [facility] Comment on above: Performed By: #### L 500.4050, L100.0100 #### [facility] [address] [place], [address] Creatinine [Mass/Vol] 0.78 mg/dL Normal 0.55-1.02 [facility] Comment on above: Result Comment: The validity of the calculated GFR GFRAA in patients over 70 years has not been determined. Clinical correlation is essential. Performed By: #### L 500.4050, L100.0100 #### [facility] [address] [place], [address] ECRCL 83.47 ml/min Normal [facility] Comment on above: Performed By: #### L 500.4050, L100.0100 #### [facility] [address] [place], [address] EST GFR - AA 101 mL/min Normal >60 [facility] Comment on above: Result Comment: Afri can Citizen Of [place] GFR Calc Performed By: #### L 500.4050, L100.0100 #### [facility] [address] [place], [address] GAP 10 Normal 5-15 [facility] Comment on above: Performed By: #### L 500.4050, L100.0100 #### [facility] [address] [place], [address] GFR/1.73 sq M.predicted among non-blacks MDRD (S/P/Bld) [Vol rate/Area] 84 mL/min/{1.73_m2} Normal >60 [facility] Comment on above: Result Comment: Non- GFR Calc Performed By: #### L 500.4050, L100.0100 #### [facility] [address] [place], [address] Globulin (S) [Mass/Vol] 3.7 g/dL Normal 2.2-4.2 [facility] Comment on above: Performed By: #### L 500.4050, L100.0100 #### [facility] [address] [place], [address] Glucose [Mass/Vol] 120 mg/dL High 74-106 [facility] Comment on above: Result Comment: Fast ing Glucose result from 100 to 125 mg/dL suggests IMPAIRED HOMEOSTASIS per A.D.A. criteria. Performed By: #### L 500.4050, L100.0100 #### [facility] [address] [place], [address] Potassium [Moles/Vol] 3.6 mmol/L Normal 3.5-5.1 [facility] Comment on above: Performed By: #### L 500.4050, L100.0100 #### [facility] [address] [place], [address] Sodium [Moles/Vol] 141 mmol/L Normal 136-145 [facility] Comment on above: Performed By: #### L 500.4050, L100.0100 #### [facility] [address] [place], [address] T PROT 6.9 g/dL Normal 6.4-8.2 [facility] Comment on above: Performed By: #### L 500.4050, L100.0100 #### [facility] [address] [place], [address] Urea nitrogen [Mass/Vol] 10 mg/dL Normal 7-18 [facility] Comment on above: Performed By: #### L 500.4050, L100.0100 #### [facility] [address] [place], [address] Determination of erythrocyte mean corpuscular volume (MCV)Ordered By: Dr. Valdovinos on 11-04-2022 MCV (RBC) [Entitic vol] 90.2 fL 81-99 [facility] Hematocrit Auto (Bld) [Volum e fraction]Ordered By: Dr. Valdovinos on 11-04-2022 Hematocrit (Bld) [Volume fraction] 38.7 % 37-47 [facility] - Chemistry and C hemistry - challengeOrdered By: Dr. Valdovinos on 11-04-2022 ALP [Catalytic activity/Vol] 61 U/L 45-117 [facility] ALT [Catalytic activity/Vol] 27 U/L 13-56 [facility] CO2 [Moles/Vol] 25.0 mmol/L 21.0-32.0 [facility] Globulin (S) [Mass/Vol] 3.7 g/dL 2.2-4.2 [facility] Urea nitrogen/Creatinine [Mass ratio] 12.8 mg/mg 10-20 [facility] - Hematology and Cell countsOrdered By: Dr. Valdovinos on 11-04-2022 Erythrocyte distribution width (RBC) [Entitic vol] 40.7 fL 35.1-43.9 [facility] Erythrocyte distribution width (RBC) [Ratio] 12.4 % 11.6-14.6 [facility] Immature granulocytes/100 WBC (Bld) 0.600 % 0.0-0.9 [facility] Comment on above: IG% - Immature Granu locytes (promyelocytes, myelocytes and metamyelocytes) > 1% indicates that a LEFT SHIFT is Present. MCH (RBC) [Entitic mass] 28.9 pg 27.0-32.0 [facility] Nucleated RBC/100 WBC (Bld) [Ratio] 0 % 0-5 [facility] MCHC Auto (RBC) [Mass/Vol]Or dered By: Dr. Valdovinos on 11-04-2022 MCHC (RBC) [Mass/Vol] 32.0 g/dL 32-36 [facility] No Panel InformationOrdered By: Dr. Valdovinos on 11-04-2022 Estimated Creatinine Clearance Calc 83.47 ml/min [facility] Estimated GFR (MDRD) Amer 101 mL/min >60 [facility] Comment on above: GFR Calc Estimated GFR (MDRD) Non-Af Amer 84 mL/min >60 [facility] Comment on above: Non- GFR Calc Vitamin D 25-Hydroxy 37.6 ng/mL [facility] Comment on above: Vitamin D 25(OH) Sta tus Range Deficiency <20 ng/mL (50nmol/L) Insufficiency 20 - 30 ng/mL (50 - 75 nmol/L) Sufficiency 30 - 100 ng/mL (75 - 250 nmol/L) Toxicity >100 ng/mL (>250 nmol/L) Platelets bldOrdered By: Dr. Valdovinos on 11-04-2022 Platelets (Bld) [#/Vol] 332 10*3/uL 150-450 [facility] Serum or plasma albumin viola urement (mass/volume)Ordered By: Dr. Valdovinos on 11-04-2022 Albumin [Mass/Vol] 3.2 g/dL 3.2-5.0 [facility] Serum or plasma albumin/glob ulin mass ratioOrdered By: Dr. Valdovinos on 11-04-2022 Albumin/Globulin [Mass ratio] 0.9 {ratio} 0.9-2.4 [facility] Serum or plasma calcium viola urement (mass/volume)Ordered By: Dr. Valdovinos on 11-04-2022 Calcium [Mass/Vol] 8.7 mg/dL 8.5-10.1 [facility] Serum or plasma creatinine m easurement (mass/volume)Ordered By: Dr. Valdovinos on 11-04-2022 Creatinine [Mass/Vol] 0.78 mg/dL 0.55-1.02 [facility] Comment on above: The validity of the calculated GFR & GFRAA in patients over 70 years has not been determined. Clinical correlation is essential. Serum or plasma urea nitroge n measurement (mass/volume)Ordered By: Dr. Valdovinos on 11-04-2022 Urea nitrogen [Mass/Vol] 10 mg/dL 7-18 [facility] Thin prep Papanicolaou smear with manual screeningOrdered By: Dr. Valdovinos on 11-04-2022 Thin prep Papanicolaou smear with manual screening 17 U/L 15-37 [facility] Thin prep Papanicolaou smear with manual screening 10 5-15 [facility] Ankle 2 Viewson 11-03-2022 Ankle 2 Views [facility] Imaging Services [address] [place] [address] Ankle 2 Views MR#: [id number] Acct: [id number] Name: NIA PRYOR Rep #: [id number] : 1975 F 47 From: Logan Muller MD PCP: Dr. Mónica Davis DO Status: ADM BRUCE Study: Ankle 2 Views Date of Exam: 11/03/22 Exam# [id number] Ordering Dr: Toro Valdovinos DPM INDICATION: Pain, [...] CC: DIANA Valdovinos; Dr. 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 Mónica Davis DO Status: ADM BRUCE Study: Ankle min 3 Views Date of Exam: 11/03/22 Exam# [id number] Ordering Dr: Toro Valdovinos DPM INDICATION: post [...] 17:15 EST Reading Location ID and State: [facility] / [place] Tel , Service support , CC: DIANA Valdovinos; Dr. 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 Mónica Davis DO Status: ADM BRUCE Study: Foot min 3 Views Date of Exam: 11/03/22 Exam# [id number] Ordering Dr: Toro Valdovinos DPM INDICATION: post [...] CC: DIANA Valdovinos; Dr. Mónica Davis DO Cargo Station Worker: Signed Normal [facility] - Chemistry and C hemistry - challengeOrdered By: Dr. March on 11-03-2022 HCG ( test) Ql (U) Negative [facility] Comment on above: Very dilute urine sp ecimens, as indicated by a low specificgravity, may not contain insurance sales representative levels of hCG. If is still suspected, a first morning urinespecimen should be collected 48 hours later and tested. Operative Reporton 3 Operative Report [facility] Medical Records Department [address] [place] [address] Operative Report 11/03/22 1457 MR#: [id number] Acct: [id number] Name: NIA PRYOR Rep #: [id number] : 1975 47 From: Toro Valdovinos DPM PCP: Dr. 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 The (more content not included)... Normal [facility] ,Urineon 11-03-2022 Beta HCG ( test) Ql (U) Negative Normal [facility] Comment on above: Result Comment: Very dilute urine specimens, as indicated by a low specific gravity, may not contain insurance sales representative levels of hCG. If is still suspected, a first morning urine specimen should be collected 48 hours later and tested. Performed By: #### L 400.7600 #### [facility] [address] [place], [address] Surgery Specimen Level IIIon 11-03-2022 Surgery Specimen Level III Patient Age/Sex Location Account Attending Physician NIA PRYOR 47/F MS3 [id number] Dr. Toro Valdovinos DPM Specimen: [id number] Received: 11/03/22 Status: EPIFANIO [place] Num: [id number] Spec Type: TENDON Subm Dr: Dr. Toro [...] in size from 1.5 to 5 cm. Barn Worker sections are submitted in one cassette. B - Received in fixative is one container labeled with the patient's name and designated right subtalar joint. The specimen consists of multiple irregular fragments of light cabello-white soft tissue that in aggregate measure 2.5 x 2 x 0.2 cm. The specimen is totally submitted in one cassette. / AM:johnnie 11/04/2022 TC:5 CPT: 36314 x2 Patient Age/Sex Location Account Attending Physician NIA PRYOR/F MS3 [id number] Dr. Toro Valdovinos DPM Signed (signature on file) Dr. Anthony Del Rio, 11/07/22 1310 Normal [facility] Comment on above: Performed By: #### P SUIII #### [facility] [address] [place] [address], [address] Absolute lymphocyte countOrd ered By: Dr. Davis on 10-28-2022 Lymphocytes Auto (Unsp spec) [#/Vol] 1.84 10*3/uL 0.83-4.51 [facility] Basophil percentageOrdered B y: Dr. Davis on 10-28-2022 Basophils/100 WBC (Bld) 0.8 % 0-1 [facility] Bilirubin [Mass/Vol] 0.70 mg/dL 0.20-1.00 [facility] Comment on above: For patients on eltr ombopag therapy, use of Dimension [place] TBIL is not recommended. Chloride [Moles/Vol] 104 mmol/L 98-107 [facility] Eosinophils/100 WBC (Bld) 2.6 % 0-5 [facility] Glucose [Mass/Vol] 99 mg/dL 74-106 [facility] Neutrophils (Bld) [#/Vol] 4.1 10*3/uL 2.0-7.7 [facility] Neutrophils/100 WBC (Bld) 61.9 % 47-70 [facility] Potassium [Moles/Vol] 4.0 mmol/L 3.5-5.1 [facility] Protein [Mass/Vol] 7.1 g/dL 6.4-8.2 [facility] Sodium [Moles/Vol] 138 mmol/L 136-145 [facility] WBC (Bld) [#/Vol] 6.6 10*3/uL 4.4-11.0 [facility] Blood erythrocytes count (nu mber/volume)Ordered By: Dr. Davis on 10-28-2022 RBC (Bld) [#/Vol] 4.42 10*6/uL 4.2-5.4 [facility] Blood hemoglobin measurement (mass/volume)Ordered By: Dr. Davis on 10-28-2022 Hemoglobin (Bld) [Mass/Vol] 13.1 g/dL 12.0-15.0 [facility] Blood lymphocytes/100 leukoc ytesOrdered By: Dr. Davis on 10-28-2022 Lymphocytes/100 WBC (Bld) 27.8 % 19-41 [facility] Blood monocytes/100 leukocyt esOrdered By: Dr. Davis on 10-28-2022 Monocytes/100 WBC (Bld) 6.6 % 0-10 [facility] Blood platelet mean volumeOr dered By: Dr. Davis on 10-28-2022 Platelet mean volume (Bld) [Entitic vol] 10.4 fL 6.2-12.0 [facility] CBC W/Diff, Automatedon 10-10 Absolute Lymph 1.84 X10 3/uL Normal 0.83-4.51 [facility] Comment on above: Performed By: #### L 100.0100, L500.4050 #### [facility] [address] [place], [address] Absolute Neut 4.1 X10 3/uL Normal 2.0-7.7 [facility] Comment on above: Performed By: #### L 100.0100, L500.4050 #### [facility] [address] [place], [address] Basophils/100 WBC (Bld) 0.8 % Normal 0-1 [facility] Comment on above: Performed By: #### L 100.0100, L500.4050 #### [facility] [address] [place], [address] Eosinophils/100 WBC (Bld) 2.6 % Normal 0-5 [facility] Comment on above: Performed By: #### L 100.0100, L500.4050 #### [facility] [address] [place], [address] Erythrocyte distribution width (RBC) [Ratio] 12.3 % Normal 11.6-14.6 [facility] Comment on above: Performed By: #### L 100.0100, L500.4050 #### [facility] [address] [place], [address] Hematocrit (Bld) [Volume fraction] 39.8 % Normal 37-47 [facility] Comment on above: Performed By: #### L 100.0100, L500.4050 #### [facility] [address] [place], [address] Hemoglobin (Bld) [Mass/Vol] 13.1 g/dL Normal 12.0-15.0 [facility] Comment on above: Performed By: #### L 100.0100, L500.4050 #### [facility] [address] [place], [address] IG% 0.300 Normal 0.0-0.9 [facility] Comment on above: Result Comment: IG% - Immature Granulocytes (promyelocytes, myelocytes and metamyelocytes) > 1% indicates that a LEFT SHIFT is Present. Performed By: #### L 100.0100, L500.4050 #### [facility] [address] [place], [address] Lymphocytes/100 WBC (Bld) 27.8 % Normal 19-41 [facility] Comment on above: Performed By: #### L 100.0100, L500.4050 #### [facility] [address] [place], [address] MCH (RBC) [Entitic mass] 29.6 pg Normal 27.0-32.0 [facility] Comment on above: Performed By: #### L 100.0100, L500.4050 #### [facility] [address] [place], [address] MCHC (RBC) [Mass/Vol] 32.9 g/dL Normal 32-36 [facility] Comment on above: Performed By: #### L 100.0100, L500.4050 #### [facility] [address] [place], [address] MCV (RBC) [Entitic vol] 90.0 fL Normal 81-99 [facility] Comment on above: Performed By: #### L 100.0100, L500.4050 #### [facility] [address] [place], [address] Monocytes/100 WBC (Bld) 6.6 % Normal 0-10 [facility] Comment on above: Performed By: #### L 100.0100, L500.4050 #### [facility] [address] [place], [address] Neutrophils/100 WBC (Bld) 61.9 % Normal 47-70 [facility] Comment on above: Performed By: #### L 100.0100, L500.4050 #### [facility] [address] [place], [address] Nucleated RBC (Bld) [#/Vol] 0 10*3/uL Normal 0-5 [facility] Comment on above: Performed By: #### L 100.0100, L500.4050 #### [facility] [address] [place], [address] Platelet mean volume (Bld) [Entitic vol] 10.4 fL Normal 6.2-12.0 [facility] Comment on above: Performed By: #### L 100.0100, L500.4050 #### [facility] [address] [place], [address] Platelets (Bld) [#/Vol] 278 10*3/uL Normal 150-450 [facility] Comment on above: Performed By: #### L 100.0100, L500.4050 #### [facility] [address] [place], [address] RBC (Bld) [#/Vol] 4.42 10*6/uL Normal 4.2-5.4 [facility] Comment on above: Performed By: #### L 100.0100, L500.4050 #### [facility] [address] [place], [address] RDW SD 40.4 fl Normal 35.1-43.9 [facility] Comment on above: Performed By: #### L 100.0100, L500.4050 #### [facility] [address] [place], [address] WBC (Bld) [#/Vol] 6.6 10*3/uL Normal 4.4-11.0 [facility] Comment on above: Performed By: #### L 100.0100, L500.4050 #### [facility] [address] [place], [address] Comprehensive Metabolic Prof [facility] 10-28-2022 Albumin [Mass/Vol] 3.2 g/dL Normal 3.2-5.0 [facility] Comment on above: Performed By: #### L 100.0100, L500.4050 #### [facility] [address] [place], [address] Albumin/Globulin [Mass ratio] 0.8 {ratio} Low 0.9-2.4 [facility] Comment on above: Performed By: #### L 100.0100, L500.4050 #### [facility] [address] [place], [address] ALK P 58 U/L Normal 45-117 [facility] Comment on above: Performed By: #### L 100.0100, L500.4050 #### [facility] [address] [place], [address] ALT [Catalytic activity/Vol] 28 U/L Normal 13-56 [facility] Comment on above: Performed By: #### L 100.0100, L500.4050 #### [facility] [address] [place], [address] AST [Catalytic activity/Vol] 14 U/L Low 15-37 [facility] Comment on above: Performed By: #### L 100.0100, L500.4050 #### [facility] [address] [place], [address] Bilirubin [Mass/Vol] 0.70 mg/dL Normal 0.20-1.00 [facility] [facility] Comment on above: Result Comment: For patients on eltrombopag therapy, use of Dimension [place] TBIL is not recommended. Performed By: #### L 100.0100, L500.4050 #### [facility] [address] [place], [address] BUN/CRE 13.7 RATIO Normal 10-20 [facility] Comment on above: Performed By: #### L 100.0100, L500.4050 #### [facility] [address] [place], [address] CA,Total 8.7 mg/dL Normal 8.5-10.1 [facility] Comment on above: Performed By: #### L 100.0100, L500.4050 #### [facility] [address] [place], [address] Chloride [Moles/Vol] 104 mmol/L Normal 98-107 [facility] Comment on above: Performed By: #### L 100.0100, L500.4050 #### [facility] [address] [place], [address] CO2 [Moles/Vol] 27.0 mmol/L Normal 21.0-32.0 [facility] Comment on above: Performed By: #### L 100.0100, L500.4050 #### [facility] [address] [place], [address] Creatinine [Mass/Vol] 0.73 mg/dL Normal 0.55-1.02 [facility] Comment on above: Result Comment: The validity of the calculated GFR GFRAA in patients over 70 years has not been determined. Clinical correlation is essential. Performed By: #### L 100.0100, L500.4050 #### [facility] [address] [place], [address] EST GFR - AA 109 mL/min Normal >60 [facility] Comment on above: Result Comment: Afri can Citizen Of [place] GFR Calc Performed By: #### L 100.0100, L500.4050 #### [facility] [address] [place], [address] GAP 7 Normal 5-15 [facility] Comment on above: Performed By: #### L 100.0100, L500.4050 #### [facility] [address] [place], [address] GFR/1.73 sq M.predicted among non-blacks MDRD (S/P/Bld) [Vol rate/Area] 90 mL/min/{1.73_m2} Normal >60 [facility] Comment on above: Result Comment: Non- GFR Calc Performed By: #### L 100.0100, L500.4050 #### [facility] [address] [place], [address] Globulin (S) [Mass/Vol] 3.9 g/dL Normal 2.2-4.2 [facility] Comment on above: Performed By: #### L 100.0100, L500.4050 #### [facility] [address] [place], [address] Glucose [Mass/Vol] 99 mg/dL Normal 74-106 [facility] Comment on above: Performed By: #### L 100.0100, L500.4050 #### [facility] [address] [place], [address] Potassium [Moles/Vol] 4.0 mmol/L Normal 3.5-5.1 [facility] Comment on above: Performed By: #### L 100.0100, L500.4050 #### [facility] [address] [place], [address] Sodium [Moles/Vol] 138 mmol/L Normal 136-145 [facility] Comment on above: Performed By: #### L 100.0100, L500.4050 #### [facility] [address] [place], [address] T PROT 7.1 g/dL Normal 6.4-8.2 [facility] Comment on above: Performed By: #### L 100.0100, L500.4050 #### [facility] [address] [place], [address] Urea nitrogen [Mass/Vol] 10 mg/dL Normal 7-18 [facility] Comment on above: Performed By: #### L 100.0100, L500.4050 #### [facility] [address] [place], [address] Determination of erythrocyte mean corpuscular volume (MCV)Ordered By: Dr. Davis on 10-28-2022 MCV (RBC) [Entitic vol] 90.0 fL 81-99 [facility] Hematocrit Auto (Bld) [Volum e fraction]Ordered By: Dr. Davis on 10-28-2022 Hematocrit (Bld) [Volume fraction] 39.8 % 37-47 [facility] - Chemistry and C hemistry - challengeOrdered By: Dr. Davis on 10-28-2022 ALP [Catalytic activity/Vol] 58 U/L 45-117 [facility] ALT [Catalytic activity/Vol] 28 U/L 13-56 [facility] CO2 [Moles/Vol] 27.0 mmol/L 21.0-32.0 [facility] Globulin (S) [Mass/Vol] 3.9 g/dL 2.2-4.2 [facility] Urea nitrogen/Creatinine [Mass ratio] 13.7 mg/mg 10-20 [facility] - Hematology and Cell countsOrdered By: Dr. Davis on 10-28-2022 Erythrocyte distribution width (RBC) [Entitic vol] 40.4 fL 35.1-43.9 [facility] Erythrocyte distribution width (RBC) [Ratio] 12.3 % 11.6-14.6 [facility] Immature granulocytes/100 WBC (Bld) 0.300 % 0.0-0.9 [facility] Comment on above: IG% - Immature Granu locytes (promyelocytes, myelocytes and metamyelocytes) > 1% indicates that a LEFT SHIFT is Present. MCH (RBC) [Entitic mass] 29.6 pg 27.0-32.0 [facility] Nucleated RBC/100 WBC (Bld) [Ratio] 0 % 0-5 [facility] MCHC Auto (RBC) [Mass/Vol]Or dered By: Dr. Davis on 10-28-2022 MCHC (RBC) [Mass/Vol] 32.9 g/dL 32-36 [facility] No Panel InformationOrdered By: Dr. Davis on 10-28-2022 Estimated GFR (MDRD) Amer 109 mL/min >60 [facility] Comment on above: GFR Calc Estimated GFR (MDRD) Non-Af Amer 90 mL/min >60 [facility] Comment on above: Non- GFR Calc Platelets bldOrdered By: Dr. Davis on 10-28-2022 Platelets (Bld) [#/Vol] 278 10*3/uL 150-450 [facility] Serum or plasma albumin viola urement (mass/volume)Ordered By: Dr. Davis on 10-28-2022 Albumin [Mass/Vol] 3.2 g/dL 3.2-5.0 [facility] Serum or plasma albumin/glob ulin mass ratioOrdered By: Dr. Davis on 10-28-2022 Albumin/Globulin [Mass ratio] 0.8 {ratio} 0.9-2.4 [facility] Serum or plasma calcium viola urement (mass/volume)Ordered By: Dr. Davis on 10-28-2022 Calcium [Mass/Vol] 8.7 mg/dL 8.5-10.1 [facility] Serum or plasma creatinine m easurement (mass/volume)Ordered By: Dr. Davis on 10-28-2022 Creatinine [Mass/Vol] 0.73 mg/dL 0.55-1.02 [facility] Comment on above: The validity of the calculated GFR & GFRAA in patients over 70 years has not been determined. Clinical correlation is essential. Serum or plasma urea nitroge n measurement (mass/volume)Ordered By: Dr. Davis on 10-28-2022 Urea nitrogen [Mass/Vol] 10 mg/dL 7-18 [facility] Thin prep Papanicolaou smear with manual screeningOrdered By: Dr. Davis on 10-28-2022 Thin prep Papanicolaou smear with manual screening 14 U/L 15-37 [facility] Thin prep Papanicolaou smear with manual screening 7 5-15 [facility] CNPTOUTREACHon 10-30-2019 CNPTOUTREACH Patient Outreach (INTMWS) NIA PRYOR ([id number]) 1975 F Date Time Provider Department 10/30/19 MARGUERITE BONILLA ([facility] INTMWS During your visit today, we recorded the following information about you: Marguerite Bonilla CMA 10/30/2019 9:17 AM Signed [facility] DEPARTMENT STORE DOOR GREETER PATRICIO Provider Action/FYI: Patients charted reviewed in [...] MARGUERITE BONILLA CMA on 10/30/19 [facility] PROGRESSon 10-30-2019 PROGRESS HNO ID: [id number] Author: Marguerite Bonilla Service: ? Author Type: Multigraph Operator Type: Progress Notes Filed: 10/30/2019 9:17 AM Note Text: [facility] DEPARTMENT STORE DOOR GREETERASSISTANT CURRY Provider Action/FYI: Patients charted reviewed in teamlet with Dr. Lopez Last patient activity 10/20/2014 Last PCP visit 06/20/2014 Based on this information Dr. Lopez has been removed as PCP. Patient identified by name and . Marguerite Bonilla CMA [facility] XR Chest 2 Viewson 8 XR Chest 2 Views Exam Date/Time:07/06/2018 12:29 EDTReason for Exam:bronchitisRepor tSTUDY:XR Chest 2 Views; 07/06/2018 12:29 pmINDICATION:bronchi tis. Shortness of breath/dyspnea.YELENA RISON:None. [id number] CLINICIAN:Haley Duque:AURA EDIASTINAL SILHOUETTE:Cardiomed iastinal silhouette is normal in size and configuration.LUNGS: Lungs are clear.No pleural effusion or pneumothorax.ABDOMEN :No remarkable upper abdominal findings.BONES:No acute osseous changes.IMPRESSION:1 . No evidence of acute cardiopulmonary process. FINAL REPORT Dictated: 07/06/2018 1:00 pm Zach Cook MDigned (Electronic Signature): 07/06/2018 1:00 pmSigned by: Marques Cook MD Technologist: [facility] Vital Signs Date Time Vital Sign Value Performing Clinician Facility 05-19-2024 08:56-0400 Diastolic blood pressure 76 mm[Hg] Juan Lennon DO Work Phone: [facility] 05-19-2024 08:56-0400 Heart rate 66 /min Juan Lennon DO Work Phone: [facility] 05-19-2024 08:56-0400 Respiratory rate 16 /min Juan Lennon DO Work Phone: [facility] 05-19-2024 08:56-0400 SaO2% (BldA) [Mass fraction] 97 % Juan Lennon DO Work Phone: [facility] 05-19-2024 08:56-0400 Systolic blood pressure 143 mm[Hg] Juan Lennon DO Work Phone: [facility] 05-19-2024 07:45-0400 Body height 167.6 cm Juan Lennon DO Work Phone: [facility] 05-19-2024 07:45-0400 Body mass index (BMI) [Ratio] 32.28 kg/m2 Juan Lennon DO Work Phone: [facility] 05-19-2024 07:45-0400 Body temperature 98.2 [degF] Juan Lennon DO Work Phone: [facility] 05-19-2024 07:45-0400 Body weight 90.72 kg Juan Jaimesangy DO Work Phone: [facility] 12-18-2023 05:16-0400 Diastolic blood pressure 81 mm[Hg] Cece Miller MD Work Phone: [facility] 12-18-2023 05:16-0400 Heart rate 68 /min Cece Miller MD Work Phone: [facility] 12-18-2023 05:16-0400 Respiratory rate 16 /min Cece Miller MD Work Phone: [facility] 12-18-2023 05:16-0400 SaO2% (BldA) [Mass fraction] 97 % Cece Miller MD Work Phone: [facility] 12-18-2023 05:16-0400 Systolic blood pressure 142 mm[Hg] Cece Miller MD Work Phone: [facility] 12-18-2023 03:25-0400 Body height 167.6 cm Cece Miller MD Work Phone: [facility] 12-18-2023 03:25-0400 Body mass index (BMI) [Ratio] 32.28 kg/m2 Cece Miller MD Work Phone: [facility] 12-18-2023 03:25-0400 Body temperature 97 [degF] Cece Miller MD Work Phone: [facility] 12-18-2023 03:25-0400 Body weight 90.72 kg Cece Miller MD Work Phone: [facility] 11-05-2022 14:00-0500 Body temperature 98.6 [degF] [facility] 11-05-2022 14:00-0500 Diastolic blood pressure 70 mm[Hg] [facility] 11-05-2022 14:00-0500 Heart rate 85 /min [facility] 11-05-2022 14:00-0500 Respiratory rate 18 /min [facility] 11-05-2022 14:00-0500 SaO2% (BldA) [Mass fraction] 98 % [facility] 11-05-2022 14:00-0500 Systolic blood pressure 130 mm[Hg] [facility] 11-03-2022 16:33-0500 Body height 167.64 cm [facility] 11-03-2022 16:33-0500 Body mass index (BMI) [Ratio] 31.9 kg/m2 [facility] 11-03-2022 16:33-0500 Body weight 89.9 kg [facility] 11-03-2022 15:00-0500 Inhaled oxygen flow rate 4 L/min [facility] 11-19-2021 21:30-0500 Heart rate 91 /min Mónica Cokernai Other Phone: [facility] 11-19-2021 21:30-0500 Respiratory rate 16 /min Mónica John Paulys Other Phone: [facility] 11-19-2021 21:30-0500 SaO2% (BldA) [Mass fraction] 97 % Mónica Cokernai Other Phone: [facility] 11-19-2021 21:00-0500 Diastolic blood pressure 82 mm[Hg] Mónica Cokernai Other Phone: [facility] 11-19-2021 21:00-0500 Systolic blood pressure 148 mm[Hg] Mónica John Paulys Other Phone: [facility] 11-19-2021 19:51-0500 Body temperature 97.16 [degF] Mónica Cokernai Other Phone: [facility] 11-19-2021 19:51-0500 Body weight 88 kg Mónicanury Davis Other Phone: [facility] Encounters Encounter Date Encounter Type Care Provider Facility Start: 05-19-2024 End: 05-19-2024 Emergency department patient visit MÓNICA DAVIS [facility] Work Phone: Comment on above: Menorrhagia with irr egular cycle (Primary Dx) Start: 12-18-2023 End: 12-18-2023 ambulatory CECE MILLER [facility] Start: 12-18-2023 End: 12-18-2023 Subsequent hospital visit by physician Ariel Moreirav1 [facility] Comment on above: Arrived Start: 12-18-2023 End: 12-18-2023 Emergency department patient visit Cece Miller MD Work Phone: [facility] Comment on above: Chest pain, unspecif ied type (Primary Dx) Start: 10-30-2023 End: 10-30-2023 ambulatory [facility] Work Phone: Start: 10-30-2023 End: 10-30-2023 Patient encounter procedure [facility] Work Phone: Start: 10-17-2023 End: 10-17-2023 ambulatory [facility] Work Phone: Start: 10-17-2023 End: 10-17-2023 Patient encounter procedure [facility], [facility] Work Phone: Start: 06-28-2023 End: 06-28-2023 ambulatory [facility] Work Phone: Start: 06-28-2023 End: 06-28-2023 Patient encounter procedure [facility], [facility] Work Phone: Start: 04-14-[address] Mónica Davis Facrudy lity:[phone] Start: 03-31-[address] Mónica Davis Facrudy lity:[phone] Start: 03-31-2023 Patient encounter procedure Mónica Davis Work Phone: [facility] Work Phone: Start: 03-24-[address] Toro dickson [facility] Facility:[id number] Start: 03-24-2023 Patient encounter procedure Mónica Davis Work Phone: [facility] Work Phone: Start: 03-20-[address] Mónica Cross lity:[phone] Start: 03-13-[address] Mónica Diazi lity:[phone] Start: 03-13-2023 Patient encounter procedure Mónica Davis Work Phone: [facility] Work Phone: Start: 03-10-[address] Mónica Diazi lity:[phone] Start: 03-10-2023 Patient encounter procedure [facility] Davis [facility] Work Phone: Start: 03-10-2023 PTFUADULT3, Provider : Bernardo De Los Santos, Status: Pen, Time: 7:00 AM Mónica Nury Susan Work Phone: [facility] Work Phone: Start: 03-08-[address] Mónica Cross lity:[phone] Start: 03-08-2023 Patient encounter procedure Mónica Davis Work Phone: [facility] Work Phone: Start: 03-03-[address] Mónica Davis Faci lity:[phone] Start: 02-27-2023 Patient encounter procedure Mónica Davis Work Phone: [facility] Work Phone: Start: 02-27-[address] Mónica Cross lity:[phone] Start: 11-10-2022 End: 11-10-2022 Emergency department patient visit Mónica Davis Facility:[facility] Start: 11-07-2022 Encounter for other preprocedural examination Mónica Davis [facility] Start: 11-03-2022 End: 11-05-2022 ambulatory Toro Valdovinos Facility:[facility] Start: 11-03-2022 End: 11-05-2022 Evaluation and management of inpatient [facility] 3 Start: 11-03-2022 End: 11-05-2022 observation encounter [facility] Work Phone: Start: 10-28-2022 End: 10-28-2022 [facility] Work Phone: Start: 10-28-2022 End: 10-28-2022 Patient encounter procedure [facility], Mikal Russell [facility] Start: 11-19-2021 End: 11-19-2021 Emergency department patient visit Danielito Herrera [facility] Emergency 12 Start: 07-06-2018 End: 07-07-2018 Patient encounter Haley Herrera Facility:[facility] Procedures Date Procedure Procedure Detail Performing Clinician [...] Work Phone: Start: 05-19-2024 SST TOP Juan Lenonn DO Work Phone: Start: 12-18-2023 XR CHEST [...] DTaP/Tdap/Td Vaccines (2 - Td or Tdap) [facility] Start: 2025 Zoster Vaccines (1 of 2) Zoste r Vaccines (1 of 2) [facility] Start: 06-09-2024 Influenza vaccination Influenz a Vaccine (#1) [facility] Start: 06-09-2023 COVID-19 Vaccine ( season) COVID-19 Vaccine ( season) [facility] Start: 06-09-2023 Influenza vaccination Influenz a Vaccine (#1) [facility] Start: 04-19-2023 MAGGIE, Provider : Bernardo D eLos Santos, Status: Pen, Time: 7:00 AM MAGGIE, Provider: Bernardo De Los Santos, Status: Pen, Time: 7:00 AM [facility] Work Phone: Start: 04-14-2023 PTFUADULT4, Provider : Bernardo De Los Santos, Status: Pen, Time: 7:00 AM PTFUADULT4, Provider: Bernardo De Los Santos, Status: Pen, Time: 7:00 AM [facility] Work Phone: Start: 04-05-2023 PTFUADULT3, Provider : Bernardo De Los Santos, Status: Pen, Time: 5:15 PM PTFUADULT3, Provider: Bernardo De Los Santos, Status: Pen, Time: 5:15 PM [facility] Work Phone: Start: 03-31-2023 PTRECHADUL, Provider : Bernardo De Los Santos, Status: Pen, Time: 7:30 AM PTRECHADUL, Provider: Bernardo De Los Santos, Status: Pen, Time: 7:30 AM [facility] Work Phone: Start: 03-29-2023 PTFUADULT4, Provider : Lupe Zayas, Status: Pen, Time: 7:00 AM PTFUADULT4, Provider: Lupe Zayas, Status: Pen, Time: 7:00 AM [facility] Work Phone: Start: 03-24-2023 PTFUADULT4, Provider : Bernardo De Los Santos, Status: Pen, Time: 7:00 AM PTFUADULT4, Provider: Bernardo De Los Santos, Status: Pen, Time: 7:00 AM [facility] Work Phone: Start: 03-22-2023 PTFUADULT4, Provider : Bernardo De Los Santos, Status: Pen, Time: 7:00 AM PTFUADULT4, Provider: Bernardo De Los Santos, Status: Pen, Time: 7:00 AM [facility] Work Phone: Start: 03-20-2023 PTFUADULT4, Provider : Lupe Zayas, Status: Pen, Time: 7:00 AM PTFUADULT4, Provider: Lupe Zayas, Status: Pen, Time: 7:00 AM [facility] Work Phone: Start: 03-13-2023 PTFUADULT4, Provider : Janee Coyle, Status: Pen, Time: 7:00 AM PTFUADULT4, Provider: Janee Coyle, Status: Pen, Time: 7:00 AM [facility] Work Phone: Start: 11-05-2022 Patient discharge [facility] Start: 11-05-2022 Vitamin D, 25-hydrox y measurement [facility] Start: 11-03-2022 Following clinical p athway protocol [facility] Start: 11-03-2022 Catheterization of vein [facility] Start: 11-03-2022 Referral to service [facility] Start: 11-03-2022 Vital signs measurements [facility] Start: 11-03-2022 Incentive spirometry [facility] Start: 11-03-2022 Elevation of affecte d extremity [facility] Start: 11-03-2022 [facility] Start: 11-03-2022 Admission procedure [facility] Start: 11-03-2022 Assessment of risk o f venous thromboembolism [facility] Start: 11-03-2022 Verification routine [facility] Start: 2015 Screening for malign ant neoplasm of breast Mammogram [facility] Start: 1996 Screening for malign ant neoplasm of cervix [facility] Start: 1994 Hepatitis B Vaccines (1 of 3 - 19+ 3-dose series) Hepatitis B Vaccines (1 of 3 - 19+ 3-dose series) [facility] Start: 1993 Hepatitis C screening Hepatiti s C Screening [facility] Start: 1976 MMR Vaccines (1 of 1 - Standard series) MMR Vaccines (1 of 1 - Standard series) [facility] Start: 1975 Hepatitis B Vaccines (1 of 3 - 3-dose series) Hepatitis B Vaccines (1 of 3 - 3-dose series) [facility] Start: 1975 HIV screening HIV Screening [facility] Start: 1975 Lipid panel Lipid Panel [facility] Start: 1975 Screening for malign ant neoplasm of colon [facility] Start: 1975 Yearly Adult Physical Yearly A dult Physical [facility] End: 05-19-2024 Bacteria identified in Urine by Culture [facility] Work Phone: Comment on above: Once (Lab) for 1 Occ urrences starting 05/19/2024 until 05/19/2024 End: 12-18-2023 ECG 12 Lead [facility] Service Area Work Phone: Comment on above: Once for 1 Occurrenc es starting 12/18/2023 until 12/18/2023 End: 05-19-2024 Extra Urine Alvarez Tube [facility] Work Phone: Comment on above: Once for 1 Occurrenc es starting 05/19/2024 until 05/19/2024 Patient referral [facility] Work Phone: End: 05-19-2024 Urinalysis complete W Reflex Culture panel - Urine [facility] Service Area Work Phone: Comment on above: Once (Lab) for 1 Occ urrences starting 05/19/2024 until 05/19/2024 Immunizations Immunization Date Immunization Notes Care Provider Nadja juares 09-05-2022 influenza virus vaccine, unspecified formulation Cece Miller MD Work Phone: [facility] Work Phone: 11-19-2021 tetanus toxoid, redu faheem diphtheria toxoid, and acellular pertussis vaccine, adsorbed Mónica Malys Other Phone: [facility] Payers Date Payer Category Payer Private Health Insurance [employer] [id number] 2024-Present [address] [place] [id number] 2024 Private Health Insurance [id number] 2022 Self-pay [id number] 2021 Unknown [id number] 2018 Unknown 1975 Unknown [id number] 2.16.840.1.441391.3.579.2. 1069 1975 Unknown [id number] 2.16.840.1.387306.3.579.2. 1069 1975 Unknown [id number] 2.16.840.1.042355.3.579.2. 1069 1975 Unknown [id number] 2.16.840.1.760608.3.579.2. 1069 1975 Unknown [id number] 2.16.840.1.716363.3.579.2. 1069 1975 Unknown [id number] 2.16.840.1.490423.3.579.2. 1069 1975 Unknown [id number] 2.16.840.1.367956.3.579.2. 1069 1975 Unknown [id number] 2.16.840.1.021619.3.579.2. 1069 1975 Unknown [id number] 2.16.840.1.596690.3.579.2. 1069 1975 Unknown [id number] 2.16.840.1.837296.3.579.2. 1243 1975 Unknown [id number] 2.16.840.1.452277.3.579.2. 1243 1975 Unknown [id number] 2.16.840.1.719577.3.579.2. 1243 Unknown ANTHEM [id number] Unknown [facility] [place] [id number] Unknown [facility] [id number] Unknown [id number] 2.16.840.1.899215.3.579.2. 462 Unknown [id number] 2.16.840.1.861043.3.579.2. 462 Unknown [id number] 2.16.840.1.250077.3.579.2. 462 Social History Date Type Detail Facility [facility] Start: 10-31-2022 End: 11-10-2022 Tobacco smoking consumption unknown [facility] Start: 05-08-2020 Non-smoker [facility] Start: 1975 Sex Assigned At Female [facility] Start: 12-18-2023 Tobacco smoking status NHIS Never smoked tobacco [facility] Work Phone: Start: 12-18-2023 Tobacco use and exposure Smokeless tobacco non-user [facility] Work Phone: Start: 12-18-2023 End: 05-19-2024 Alcohol intake Lifetime non-drinker (finding) [facility] Work Phone: Start: 12-18-2023 History of Social function [facility] Work Phone: Start: 12-18-2023 [facility] Work Phone: Start: 1975 Sex Assigned At Not on file [facility] Work Phone: Start: 12-08-2023 End: 05-19-2024 Exposure to SARS-CoV-2 (event) Not sure [facility] Work Phone: NEGATED: Highlighted row [facility] Medical Equipment Procedure Code Equipment Code Equipment [...] MARIKA FDA Start: 11-03-2022 Fusion, subtalar joint ([id number]) Tendon/ligament bone anchor, bioabsorbable ([id number] FDA Start: 11-03-2022 Fusion, subtalar joint 6.5 [...] Result Facility 11-05-2022 Functional status Bathroom Privilege [facility] Work Phone: Mental Status Date Assessment Result Facility 11-05-2022 Cognitive function Voice/Name [facility] Work Phone: Clinical Notes 11-03-2022 to 05-19-2024 [...] Urine Colorless (*) Appearance, Urine Clear Specific [place], Urine 1.007 pH, Urine 6.5 Protein, Urine [...] Abnormality Status --------- ------ Urinalysis with Reflex C...[[id number]] Abnormal Final result Extra Urine Alvarez Tube[[id number]] In process Please view results for these [...] Lennon DO 05/19/2455 documented in this encounter [facility] Work Phone: 05-19-2024 Physician Emergency department [...] Urine Colorless (*) Appearance, Urine Clear Specific [place], Urine 1.007 pH, Urine 6.5 Protein, Urine [...] Abnormality Status --------- ------ Urinalysis with Reflex C...[[id number]] Abnormal Final result Extra Urine Alvarez Tube[[id number]] In process Please view results for these [...] Procedure Procedures Juan Lennon DO 05/19/24 0855 [facility] Work Phone: 12-18-2023 Hospital Discharge instructions Cece Miller MD - 12/18/2023 5:01 AM EDT May benefit from Tylenol and Motrin. The following attachments cannot be sent through Care Everywhere.Chest Pain Discharge Instructions (Gambian)documented in this encounter [facility] Work Phone: 12-18-2023 Emergency department Note [...] performed using a different testing methodology at [facility] than at other [facility]. Direct result comparisons should only be [...] Tremaine Mehta 12/18/2023 4:15 AM Dictation workstation: [id number] Procedures Medical Decision Making Patient presents with [...] MD 12/18/23 050 documented in this encounter [facility] Work Phone: 12-18-2023 Physician Emergency department [...] performed using a different testing methodology at [facility] than at other [facility]. Direct result comparisons should only be made [...] Tremaine Mehta 12/18/2023 4:15 AM Dictation workstation: [id number] Procedures Medical Decision Making Patient presents with [...] unspecified type Cece Miller MD 12/18/23 0502 [facility] Work Phone: 11-05-2022 Discharge summary Note Date/Time November 05, 2022 1:04pm [facility] Medical Records Department [address] [place] [address] Instructions for Home/Discharge Instructions 11/05/22 1303 MR#: [id number] Acct: [id number] Name: NIA PRYOR Rep #:[id number] : 1975 47 From: Toro Valdovinos DPM [...] When: Next Monday sooner if needed. Call [facility] if needed- [phone] Test Results: Test results from this visit [...] (Reason: pain) Qty: 10 0RF Continued omega 4-lgg-wat-fish oil [Fish Oil] 360-1,200 mg capsule,delayed release(DR/EC) [...] DO; Dr. Logan Toure DO ~ Signed [facility] Work Phone: 1(813) 542-590101-28-[address] Millerabimbola [facility] November 05, 2022 1:08pm Note Date/Time November 05, 2022 1 :08pm [facility] Medical Records Department [address] [place] [address] Discharge Summary 11/05/22 1308 MR#: [id number] Acct: [id number] Name: NIA PRYOR Rep #:[id number] : 1975 47 From: Toro Valdovinos DPM PCP: Dr. Mónica Davis DO Status:ADM BRUCE Location: [place] [address] Providers Date of Admission: 11/03/22 Primary Care [...] Medications at Discharge Home Medications omega-3 360 fs-zlq-koo-fish oil 1,200 mg capsule,delayed release (Fish Oil) [...] When: Next Monday sooner if needed. Call [facility] if needed- [phone] Meaningful Use Info Meaningful Use Diagnoses (Choose [...] (Reason: pain) Qty: 10 0RF Continued omega 2-cnw-ljg-fish oil [Fish Oil] 360-1,200 mg capsule,delayed release(DR/EC) [...] DIANA Valdovinos; Dr. Mónica Davis DO~ Signed [facility] Work Phone: 1(571) 540-328001-28-2023 [facility] Medical Records Department [address] [place] [address] Discharge Summary 11/05/22 1308 MR#: [id number] Acct: [id number] Name: NIA PRYOR Rep #: [id number] : 1975 47 From: Toro Valdovinos DPM PCP: Dr. Mónica Davis DO Status:ADM BRUCE Location: [place] [address] Providers Date of Admission: 11/03/22 Primary Care [...] Medications at Discharge Home Medications omega-3 360 mi-fin-lxr-fish oil 1,200 mg capsule,delayed release (Fish Oil) [...] When: Next Monday sooner if needed. Call [facility] if needed - [phone] Meaningful Use Info Meaningful Use Diagnoses (Choose [...] (Reason: pain) Qty: 10 0RF Continued omega 4-tpl-ocq-fish oil [Fish Oil] 360-1,200 mg capsule,delayed release(DR/EC) [...] CC: DIANA Valdovinos; Dr. Mónica Davis DO [facility] Valdovinos [facility] November 05, 2022 1:02pm Note Date/Time November 05, 2022 1 :02pm [facility] Medical Records Department [address] [place] [address] Progress Note 11/05/22 1300 MR#: [id number] Acct: [id number] Name: NIA PRYOR Rep #:[id number] : 1975 47 From: Toro Valdovinos DPM PCP: Dr. Mónica Davis DO Status:ADM BRUCE Location: [place]3 SZ205-3 Subjective Subjective Patient was seen today for [...] today. 11/05/22 1302 <Electronically signed by Toro Vadlovinos DPM> Toro Valdovinos DPM Cosigner Signature (if applicable): CC: ~ Signed [facility] Work Phone: 1(917) 367-192601-27-[address] Valdovinos [facility] November 04, 2022 6:27pm Note Date/Time November 04, 2022 6 :27pm [facility] Medical Records Department [address] [place] [address] Progress Note 11/04/22 1825 MR#: [id number] Acct: [id number] Name: NIA PRYOR Rep #:[id number] : 1975 47 From: Toro Valdovinos DPM PCP: Dr. Mónica Davis, DO Status:ADM BRUCE Location: [place] SC153-2 Subjective Subjective Patient was seen today for [...] 80.2 H, Lymph % (Auto) 12.2 L, [place] % (Auto) 6.9, Eos % (Auto) 0.0, Baso % (Auto) 0.1, Absolute Neuts (auto) 11.5 H, Absolute Lymphs (auto) 1.74, Nucleated RBC % 0 11/04/22 07:11: Sodium 141, Potassium 3.6, Chloride 106, Carbon Dioxide 25.0, Anion Gap 10, BUN 10, Creatinine 0.78, Estim Creat Clear Calc 83.47, Est GFR (MDRD) Af Amer 101, Est GFR (MDRD) Non-Af 84, BUN/Creatinine Ratio 12.8, [id number] H, Calcium 8.7, Total Bilirubin 0.60, AST [...] Cosigner Signature (if applicable): CC: ~ Signed [facility] Work Phone: 1(179) 730-955901-26-2023 History and physical note Author Dr. Valdovinos [facility] November 03, 2022 3:03pm Note Date/Time November 03, 2022 3 :03pm [facility] Medical Records Department [address] [place] [address] History & Physical Exam 11/03/22 1500 MR#: [id number] Acct: [id number] Name: NIA PRYOR Rep #:[id number] : 1975 47 From: Toro Valdovinos DPM PCP: Dr. Mónica Davis, DO Status:[facility] Location: [place] [address] HPI - General General Date of Admission: 11/03/22 HPI Narrative NIA PRYOR, is a 47 F who presents s/p right foot/ankle surgery. Patient did well with the surgery. She is admitted for post op pain control, antibiotic prophylaxis, and management. [facility] Medical History (Updated 11/03/22 @ 15:[address] Toro Valdovinos DPM) Abrasion Arthritis Discoloration of skin Endometriosis determined by laparoscopy (~02/11/20) Infertility Injury of head and neck Lipoma of back PCOS (polycystic ovarian syndrome) Wears contact lenses Wears glasses Home Medications meloxicam 15 mg tablet 15 mg PO DAILY 04/25/19 [History Last Taken 10/25/22] omega-3 360 mg-csg-gyj-fish oil 1,200 mg capsule,delayed release (Fish Oil) [...] 0 current occupational status: employed current occupation: [employer] Smoking Status: Never smoker alcohol intake: [...] DIANA Valdovinos; Dr. Mónica Davis DO~ Signed [facility] Work Phone: [phone]) 611-179001-26-2023 [facility] Medical Records Department [address] [place] [address] History Physical Exam 11/03/22 1500 MR#: [id number] Acct: [id number] Name: NIA PRYOR Rep #: [id number] : 1975 47 From: Toro Valdovinos DPM PCP: Dr. Mónica Davis DO Status:[facility] Location: [place] [address] HPI - General General Date of Admission: 11/03/22 HPI Narrative NIA PRYOR, is a 47 F who presents s/p right foot/ankle surgery. Patient did well with the surgery. She is admitted for post op pain control, antibiotic prophylaxis, and management. [facility] Medical History (Updated 11/03/22 @ 15:[address] Toro Valdovinos DPM) Abrasion Arthritis Discoloration of skin Endometriosis determined by laparoscopy ( 02/11/20) Infertility Injury of head and neck Lipoma of back PCOS (polycystic ovarian syndrome) Wears contact lenses Wears glasses Home Medications meloxicam 15 mg tablet 15 mg PO DAILY 04/25/19 [History Last Taken 10/25/22] omega-3 360 tc-xqb-aux-fish oil 1,200 mg capsule,delayed release (Fish Oil) [...] 0 current occupational status: employed current occupation: [employer] Smoking Status: Never smoker alcohol intake: [...] CC: DPBetito Valdovinos; Dr. Mónica Davis, DO [facility]ignedW[facility]* Diagnosis Onset Date Resolution Status Acute right ankle pain acute Arthritis of right ankle acu te Peroneal tendinitis, right leg acute Sprain of other ligament of right ankle, subsequent encounter acute [id number] acute [facility] Work Phone: Evaluation noteNo assessment information available [facility] Work Phone: Evaluation note* Diagnosis Chest pain, unspecified type- Primary documented in this encounter [facility] Work Phone: Evaluation note* Diagnosis Menorrhagia with irregular cycle- Primary documented in this encounter [facility] Work Phone: History of Present illness Narrative* Advancing ther- ex as indicated to progress functional strength for ankle stability and balance. Patient voices compliance with current HEP. She denies increase in ankle pain or edema during/followingtreatment. * Response to treatment: no change in pain, improved strength, improved flexibility and improved knowledge and understanding of condition. [facility] Work Phone: History of Present illness Narrative* Patient identity confirmed today with name/. used #1 ball for baps circles due to patient discomfort; added to HEP and given handout; concentrated on closed chain activities with shorter session today. * Response to treatment: no change in pain, improved strength, improved flexibility and improved knowledge and understanding of condition. [facility] Work Phone: History of Present illness Narrative* Patient identified by name and * Patient appropriately challenged. Zack's improvements in foot intrinsics strength, however is stilllimited in R ankle ROM. Does demo slight difficulty with balance this date requiring intermittent fingertip touching. Zack's no increased symptoms throughout session. Education provided for symptom ma nagement at home with patient zack'g understanding. [facility] Work Phone: History of Present illness NarrativePatient identity confirmed today with name/. clinic ex done without brace today; added to and modified HEP for HEP emphasis; difficulty with lunges and SLS today. [facility] Work Phone: History of Present illness NarrativePatient identity confirmed today with name/. see goals; added to HEP today; still difficulty with lunge (L lead) and also difficulty with heel/toe walk. [facility] Work Phone: Hospital Discharge instructions* Attachments The following attachments cannot be sent through Care Everywhere. * Heavy Periods ED (Gambian) [facility] Summary Purpose Family History Relationship Condition Age at Onset Recorded Date/T ellen father Diabetes mellitus Unknown mother Malignant neoplasm Unknown aunt Malignant neoplasm of breast Unknown grandmother Asthma Unknown Advance Directives Advance Directive Response Recorded Date/ Time Living Will No November 03 4:33pm Power of Mrb Engineer No November 03, 2022 4:33pm Advance Directive Response Recorded Date/ Time Living Will No November 10 10:40am Power of Mrb Engineer No November 10, 2022 10:40am Advance Directive Response Recorded Date/ Time Living Will No November 10 9:40am Power of Mrb Engineer No November 10, 2022 9:40am Chief Complaint and Reason for Visit Chief Complaint RT TENDON DEBRIDE & REPAIR, ARTHRODESIS Reason for Visit Acute right ankle pa in Arthritis of right ankle Peroneal tendinitis, right leg Sprain of other ligament of right ankle, subsequent encounter [id number] Chief Complaint RIGHT ANKLE SPRAIN Chief Complaint RIGHT ANKLE SPRAIN RIGHT ANKLE PAIN S/P FUSION Chief Complaint RIGHT ANKLE PAIN S/P FUSION PAIN IN RIGHT ANKLE HINDFOOT Additional Source Comments INFORMATION SOURCE (unrecogn ized section and content) DATE CREATED AUTHOR 08/06/2018 [facility] DATE CREATED AUTHOR AUTHOR'S ORGANIZ ATION 10/30/2019 [facility] DATE CREATED AUTHOR AUTHOR'S ORGANIZ ATION 11/21/2022 [facility] DATE CREATED AUTHOR AUTHOR'S ORGANIZ ATION 04/18/2023 [facility] DATE CREATED AUTHOR AUTHOR'S ORGANIZ ATION 05/20/2023 [facility] DATE CREATED AUTHOR AUTHOR'S ORGANIZ ATION 12/24/2023 [facility] DATE CREATED AUTHOR AUTHOR'S ORGANIZ ATION 05/20/2024 [facility] <item> Privacy Markings (unrecogniz ed section and content) Section Author: Larissa Ko PROHIBITION ON REDISCLOSURE OF CONFIDENTIAL INFORMATION This notice accompanies a disclosure of information concerning a client made to you with the consent of such client. Care Teams (unrecognized sec tion and content) Team Status: Active Member Role Status Dates Dr. Mónica Davis DO Family Provider Active Dr. Mónica Davis [...] DPM Attending Provider, Mar n[place] Provider Active Mailroom Personnel Relationship Specialty Start Date End Date Mónica Davis DO [address] [place] [address] PCP - General Family Medicine 12/18/23 Mailroom Personnel Relationship Specialty Start Date End Date Mónica Davis DO [address] [place] [address] PCP - General Family Medicine 12/18/23 Mailroom Personnel Relationship Specialty Start Date End Date Mónica Davis DO [address] [place] [address] PCP - General Family Medicine 12/18/23 [...] BE BASED ON THE PRIMARY CLINICAL RECORDS. [facility] [place] [facility]. provides no warranty or guarantee of the accuracy or completeness of information in this document.
== END | disposition home or self-care (01) ==
LOC: BFHLAB 09:42
PROVIDERS: PCP Family Medicine; Visit Provider Family Medicine
DX: E03.9 Hypothyroidism, unspecified (principal); R53.83 Other fatigue; E78.5 Hyperlipidemia, unspecified; Z51.81 Encounter for therapeutic drug level monitoring
CPT/HCPCS: 36415; 80053; 80061; 84439; 84443; 84481; 85025